=== PATIENT | male | born 1950 | race Caucasian/White ===

== ENCOUNTER → 2018-09-04 | Outpatient (CLI) | payer MEDICARE, OTHER ==
[2014-09-28 09:05] VITALS: BP 107/61
[~2018-09-04] MED LIST: 0.9 % SODIUM CHLORIDE 10 ML VIAL ONE; BUPR300T4 PO; CARV12.52 PO; CHOL500050 PO; FEBU80TA2 PO; FURO20TA3 PO; HYDR-963 PO; INSU100I11 SQ; INSU100I13 SQ; IOHEXOL 300 MG/ML 50 ML VIAL. ONE; LEVO100T5 PO; LIDOCAINE 1% PF 30 ML VIAL. ONE; LOSA50TA7 PO; MAGN400T17 PO; METO10TA PO; MOXI3DRO2 RIGHTEYE; NEPA1.7D RIGHTEYE; OMEP20CA9 PO; PRED5DRO16 RIGHTEYE; PREG75CA PO; SPIR25TA5 PO; methylPREDNISolone ACETATE 80 MG/ML VIAL. ONE
== END | disposition home or self-care (01) ==
LOC: SURG 11:21
PROVIDERS: ATTEND Anesthesiology Pain Medicine
DX: M47.26 Other spondylosis with radiculopathy, lumbar region (principal); M79.18 Myalgia, other site; E11.9 Type 2 diabetes mellitus without complications; M10.9 Gout, unspecified; E66.01 Morbid (severe) obesity due to excess calories; E03.9 Hypothyroidism, unspecified; K21.9 Gastro-esophageal reflux disease without esophagitis; J44.9 Chronic obstructive pulmonary disease, unspecified; D64.9 Anemia, unspecified; Z90.49 Acquired absence of other specified parts of digestive tract; Z98.84 Bariatric surgery status; Z98.890 Other specified postprocedural states; Z79.899 Other long term (current) drug therapy; Z79.4 Long term (current) use of insulin; Z87.891 Personal history of nicotine dependence; M19.90 Unspecified osteoarthritis, unspecified site; G47.30 Sleep apnea, unspecified; Z96.653 Presence of artificial knee joint, bilateral
CPT/HCPCS: 20552; 62323; J1040; J2001; Q9967

== ENCOUNTER 2019-06-12 17:25 | Emergency (ER) | payer OTHER ==
[~2019-06-12] VITALS: Ht 175.3 cm; Wt 134.7 kg
[~2019-06-12 17:25] MED LIST changes: -0.9 % SODIUM CHLORIDE 10 ML VIAL ONE; -CARV12.52 PO; +CARV12.547 PO; +HYDR-3136 PO; -HYDR-963 PO; -IOHEXOL 300 MG/ML 50 ML VIAL. ONE; -LIDOCAINE 1% PF 30 ML VIAL. ONE; -LOSA50TA7 PO; +LOSA50TA86 PO; +MOXI3DRO18 RIGHTEYE; -MOXI3DRO2 RIGHTEYE; +OMEP20CA10 PO; -OMEP20CA9 PO; -methylPREDNISolone ACETATE 80 MG/ML VIAL. ONE
--- NOTE | 2019-06-12 17:34 | ED.ADGEN ---
Past History Past Medical History: Anemia, Anxiety, Arthritis, CHF, Constipation, COPD, Diabetes, High Cholesterol, Hypertension, Renal Disease, Other Past Medical History Sleep Apnea, Obesity Past Surgical History: Cholecystectomy, Knee Replacement, Other Smoking: Non-smoker Alcohol Use: None Drug Use: None Adult General Chief Complaint Chief Complaint ". I ve been hurting since about Saturday or ... my Rt. flank.. "...It sometimes so severe..." HPI HPI Patient is a 68 year old male who presents with above hx and complaints of back pain - Rt. flank pain. Pain has been somewhat intermittent with at times very severe. She denies any pain it helps her exacerbate pain Patient denies any trauma. Patient denies any dysuria. Patient denies prior history of kidney stones. Patient does have a history of COPD, neuritis, hypertension, sleep apnea, diabetes, renal insufficiency, and morbid obesity. Patient has had previous cholecystectomy, knee replacement and cataract surgery.. Only follows at [facility]. Review of Systems Review of Systems Constitutional: Denies fever or chills [] Eyes: Denies change in visual acuity, redness, or eye pain [] HENT: Denies nasal congestion or sore throat [] Respiratory: Denies cough or shortness of breath [] Cardiovascular: No additional information not addressed in HPI [] GI: Denies abdominal pain, nausea, vomiting, bloody stools or diarrhea [] : Denies dysuria or hematuria [] Musculoskeletal: Complaints of right flank back pain Integument: Denies rash or skin lesions [] Neurologic: Denies headache, focal weakness or sensory changes [] Endocrine: Denies polyuria or polydipsia [] All other systems were reviewed and found to be within normal limits, except as documented in this note. Family History Family History Noncontributory Current Medications Current Medications Current Medications Medications (Trade) Dose Ordered Sig/Estuardo Start Time Stop Time Status Last Admin Dose Admin Famotidine (Pepcid Vial) 20 mg 1X ONCE 06/12/19 17:45 06/12/19 17:58 DC 06/12/19 18:19 20 MG Iohexol (Omnipaque 240 Mg/ml) 30 ml 1X ONCE 06/12/19 19:45 06/12/19 19:46 DC 06/12/19 20:18 30 ML Ketorolac Tromethamine (Toradol 30mg Vial) 30 mg 1X ONCE 06/12/19 17:45 06/12/19 17:58 DC 06/12/19 18:21 30 MG Lactated Ringer's 1,000 ml @ 1,000 mls/hr Q1H 06/12/19 18:00 06/12/19 18:59 DC 06/12/19 18:15 1,000 MLS/HR Magnesium Hydroxide (Milk Of Magnesia) 2,400 mg 1X ONCE 06/12/19 21:15 06/12/19 21:18 DC 06/12/19 21:21 2,400 MG Morphine Sulfate (Morphine 10mg Syringe) 10 mg 1X ONCE 06/12/19 21:15 06/12/19 21:16 DC 06/12/19 21:18 10 MG Ondansetron HCl (Zofran) 8 mg 1X ONCE 06/12/19 17:45 06/12/19 17:58 DC 06/12/19 18:17 8 MG Orphenadrine Citrate (Norflex) 60 mg 1X ONCE 06/12/19 21:15 06/12/19 21:16 DC 06/12/19 21:15 60 MG Allergies Allergies Allergies Coded Allergies Type Severity Reaction Last Updated Verified No Known Drug Allergies 03/01/14 No Physical Exam Physical Exam Constitutional: Moderate acute distress, non-toxic appearance. [] HENT: Normocephalic, atraumatic, bilateral external ears normal, oropharynx moist, no oral exudates, nose normal. [] Eyes: PERRLA, EOMI, conjunctiva normal, no discharge. [] Neck: Normal range of motion, no tenderness, supple, no stridor. [] Cardiovascular:Heart rate regular rhythm, no murmur [CA to left Lungs & Thorax: Bilateral breath sounds with apex with few scattered wheezes auscultation [] Abdomen: Bowel sounds normal, soft, no tenderness, no masses, no pulsatile masses. [place]. Old surgery scars. Skin: Warm, dry, no erythema, no rash. [] Back: No tenderness, right flank CVA tenderness. [] Extremities: No tenderness, no cyanosis, no clubbing, ROM intact, ankle edema. [] Knee scar Neurologic: Alert and oriented X 3, normal motor function, normal sensory function, no focal deficits noted. [] Psychologic: Affect anxious, judgement normal, mood normal. [] Current Patient Data Vital Signs Vital Signs Date Time Temp Pulse Resp B/P (MAP) Pulse Ox O2 Delivery O2 Flow Rate FiO2 06/12/19 21:23 65 20 141/75 (97) 99 Room Air Lab Results Laboratory Tests Test 06/12/19 17:44 06/12/19 17:56 Urine Collection Type Unknown Urine Color Yellow Urine Clarity Clear Urine pH 6.5 Urine Specific Pool 1.025 Urine Protein >100 mg/dl (NEG-TRACE) Urine Glucose (UA) Neg mg/dL (NEG) Urine Ketones (Stick) Neg mg/dL (NEG) Urine Blood Trace (NEG) Urine Nitrite Neg (NEG) Urine Bilirubin Neg (NEG) Urine Urobilinogen Dipstick 4 mg/dL (0.2 mg/dL) Urine Leukocyte Esterase Neg (NEG) Urine RBC 0 /HPF (0-2) Urine WBC 0 /HPF (0-4) Urine Squamous Epithelial Cells Occ /LPF Urine Bacteria 0 /HPF (0-FEW) Urine Hyaline Casts Occ /HPF Urine Opiates Screen Pos (NEG) Urine Methadone Screen Neg (NEG) Urine Barbiturates Neg (NEG) Urine Phencyclidine Screen Neg (NEG) Urine Amphetamine/Methamphetamine Neg (NEG) Urine Benzodiazepines Screen Neg (NEG) Urine Cocaine Screen Neg (NEG) Urine Cannabinoids Screen Neg (NEG) Urine Ethyl Alcohol Neg (NEG) White Blood Count 4.6 x10^3/uL (4.0-11.0) Red Blood Count 4.42 x10^6/uL (4.30-5.70) Hemoglobin 14.0 g/dL (13.0-17.5) Hematocrit 42.1 % (39.0-53.0) Mean Corpuscular Volume 95 fL (79-100) Mean Corpuscular Hemoglobin 32 pg (25-35) Mean Corpuscular Hemoglobin Concent 33 g/dL (31-37) Red Cell Distribution Width 14.1 % (11.5-14.5) Platelet Count 111 x10^3/uL (140-400) L Neutrophils (%) (Auto) 58 % (31-73) Lymphocytes (%) (Auto) 29 % (24-48) Monocytes (%) (Auto) 13 % (0-9) H Eosinophils (%) (Auto) 0 % (0-3) Basophils (%) (Auto) 0 % (0-3) Neutrophils # (Auto) 2.7 x10^3uL (1.8-7.7) Lymphocytes # (Auto) 1.3 x10^3/uL (1.0-4.8) Monocytes # (Auto) 0.6 x10^3/uL (0.0-1.1) Eosinophils # (Auto) 0.0 x10^3/uL (0.0-0.7) Basophils # (Auto) 0.0 x10^3/uL (0.0-0.2) Prothrombin Time 10.6 SEC (9.4-11.4) Prothrombin Time INR 1.0 (0.9-1.1) PTT 27 SEC (23-33) Sodium Level 140 mmol/L (136-145) Potassium Level 4.8 mmol/L (3.5-5.1) Chloride Level 107 mmol/L (98-107) Carbon Dioxide Level 26 mmol/L (21-32) Anion Gap 7 (6-14) Blood Urea Nitrogen 25 mg/dL (8-26) Creatinine 1.7 mg/dL (0.7-1.3) H Estimated GFR (Cockcroft-Gault) 40.4 Glucose Level 121 mg/dL (70-99) H Calcium Level 9.2 mg/dL (8.5-10.1) Total Bilirubin 0.6 mg/dL (0.2-1.0) Direct Bilirubin 0.3 mg/dL (0.0-0.2) H Aspartate Amino Transferase (AST) 26 U/L (15-37) Alanine Aminotransferase (ALT) 30 U/L (16-63) Alkaline Phosphatase 100 U/L (46-116) Creatine Kinase 66 U/L (39-308) Troponin I Quantitative < 0.017 ng/mL (0-0.055) Total Protein 7.0 g/dL (6.4-8.2) Albumin 3.4 g/dL (3.4-5.0) Lipase 64 U/L (73-393) L EKG EKG [] Radiology/Procedures Radiology/Procedures [][address] [address] IMAGING REPORT Signed PATIENT: SUNDEEP LIU ACCOUNT: [id number] : 1950 LOCATION: ER AGE: 68 SEX: M EXAM STATUS: REG ER ORD. PHYSICIAN: SYBIL LOCK MD REASON: Omni 240, 30ml PO. Right flank pain. Creat 1.7, unable to give IV PROCEDURE: CT ABD PEL W/ORAL CONTRST ONLY INDICATION: Right flank pain COMPARISON: None. TECHNIQUE: Axial CT images obtained through the abdomen and pelvis without contrast. Limited assessment of solid organ structures and vasculature secondary to lack of intravenous contrast.. One or more of the following individualized dose reduction techniques were utilized for this examination: 1. Automated exposure control; 2. Adjustment of the mA and/or kV according to patient size; 3. Use of iterative reconstruction technique. FINDINGS: Moderate calcific atherosclerosis. Lobulated appearance of the liver with enlarged caudate. Poor evaluation for solid organ mass given lack of contrast. No peripancreatic fluid collection. Spleen mildly prominent in size. No left-sided hydronephrosis. Nonobstructive bilateral renal stones. No right-sided hydronephrosis. There are some prominent collateral vessels identified. Urinary bladder is partially distended with mild prominence of the wall. There is folding of the cecum medially. Suspected appendix not dilated. Degenerative changes throughout the spine with multilevel central canal and neural foraminal stenosis. Moderate compression fracture of T11 vertebral body superior endplate. Retrolisthesis of L2 on 3 and L1 on 2. Inferior vena cava filter. IMPRESSION: 1. Bilateral renal stones without hydronephrosis. 2. Suspected appendix is not dilated. 3. Cirrhotic liver morphology with collateral vessels seen within the abdomen and pelvis. This can be seen with causes such as portal hypertension. 4. Moderate compression fracture T11. 5. Severe degenerative changes the spine with multilevel central canal and neural foraminal stenosis. 6. Prominence the wall of the urinary bladder. Could be from lack of distention but would correlate with symptoms in the region to ensure there is not a pathologic cause such as cystitis. Electronically signed by: Shaquille Wright MD (06/12/2019 8:50 PM) [facility] DICTATED AND SIGNED BY: SHAQUILLE WRIGHT MD DATE: 06/12/192049 CC: SYBIL LOCK MD; CEDRICK TANG ~ Course & Med Decision Making Course & Med Decision Making Pertinent Labs and Imaging studies reviewed. (See chart for details) Follow up with primary. Consider Neurosurgery consult. Take Percocet and flexeril for spasm /marked pain. Push fluids. Avoid constipation. [] Final Impression Final Impression 1. 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 Renal Stones without Hydronephrosis or Hematuria 3. Renal Insuf. Creat 1.2 4. DM = 121 5. Thrombocytopenia Dragon Disclaimer Dragon Disclaimer This electronic medical record was generated, in whole or in part, using a voice recognition dictation system. Discharge Summary Visit Information Final Diagnosis Problems Medical Problems: (1) Spinal stenosis Status: Acute Brief Hospital Course Allergies Allergies Coded Allergies Type Severity Reaction Last Updated Verified No Known Drug Allergies 03/01/14 No Vital Signs Vital Signs Date Time Temp Pulse Resp B/P (MAP) Pulse Ox O2 Delivery O2 Flow Rate FiO2 06/12/19 21:23 65 20 141/75 (97) 99 Room Air Lab Results Laboratory Tests Test 06/12/19 17:44 06/12/19 17:56 Urine Collection Type Unknown Urine Color Yellow Urine Clarity Clear Urine pH 6.5 Urine Specific Pool 1.025 Urine Protein >100 mg/dl (NEG-TRACE) Urine Glucose (UA) Neg mg/dL (NEG) Urine Ketones (Stick) Neg mg/dL (NEG) Urine Blood Trace (NEG) Urine Nitrite Neg (NEG) Urine Bilirubin Neg (NEG) Urine Urobilinogen Dipstick 4 mg/dL (0.2 mg/dL) Urine Leukocyte Esterase Neg (NEG) Urine RBC 0 /HPF (0-2) Urine WBC 0 /HPF (0-4) Urine Squamous Epithelial Cells Occ /LPF Urine Bacteria 0 /HPF (0-FEW) Urine Hyaline Casts Occ /HPF Urine Opiates Screen Pos (NEG) Urine Methadone Screen Neg (NEG) Urine Barbiturates Neg (NEG) Urine Phencyclidine Screen Neg (NEG) Urine Amphetamine/Methamphetamine Neg (NEG) Urine Benzodiazepines Screen Neg (NEG) Urine Cocaine Screen Neg (NEG) Urine Cannabinoids Screen Neg (NEG) Urine Ethyl Alcohol Neg (NEG) White Blood Count 4.6 x10^3/uL (4.0-11.0) Red Blood Count 4.42 x10^6/uL (4.30-5.70) Hemoglobin 14.0 g/dL (13.0-17.5) Hematocrit 42.1 % (39.0-53.0) Mean Corpuscular Volume 95 fL (79-100) Mean Corpuscular Hemoglobin 32 pg (25-35) Mean Corpuscular Hemoglobin Concent 33 g/dL (31-37) Red Cell Distribution Width 14.1 % (11.5-14.5) Platelet Count 111 x10^3/uL (140-400) Neutrophils (%) (Auto) 58 % (31-73) Lymphocytes (%) (Auto) 29 % (24-48) Monocytes (%) (Auto) 13 % (0-9) Eosinophils (%) (Auto) 0 % (0-3) Basophils (%) (Auto) 0 % (0-3) Neutrophils # (Auto) 2.7 x10^3uL (1.8-7.7) Lymphocytes # (Auto) 1.3 x10^3/uL (1.0-4.8) Monocytes # (Auto) 0.6 x10^3/uL (0.0-1.1) Eosinophils # (Auto) 0.0 x10^3/uL (0.0-0.7) Basophils # (Auto) 0.0 x10^3/uL (0.0-0.2) Prothrombin Time 10.6 SEC (9.4-11.4) Prothromb Time International Ratio 1.0 (0.9-1.1) Activated Partial Thromboplast Time 27 SEC (23-33) Sodium Level 140 mmol/L (136-145) Potassium Level 4.8 mmol/L (3.5-5.1) Chloride Level 107 mmol/L (98-107) Carbon Dioxide Level 26 mmol/L (21-32) Anion Gap 7 (6-14) Blood Urea Nitrogen 25 mg/dL (8-26) Creatinine 1.7 mg/dL (0.7-1.3) Estimated GFR (Cockcroft-Gault) 40.4 Glucose Level 121 mg/dL (70-99) Calcium Level 9.2 mg/dL (8.5-10.1) Total Bilirubin 0.6 mg/dL (0.2-1.0) Direct Bilirubin 0.3 mg/dL (0.0-0.2) Aspartate Amino Transf (AST/SGOT) 26 U/L (15-37) Alanine Aminotransferase (ALT/SGPT) 30 U/L (16-63) Alkaline Phosphatase 100 U/L (46-116) Creatine Kinase 66 U/L (39-308) Troponin I Quantitative < 0.017 ng/mL (0-0.055) Total Protein 7.0 g/dL (6.4-8.2) Albumin 3.4 g/dL (3.4-5.0) Lipase 64 U/L (73-393) Brief Hospital Course Mr. Liu is a 68 old male who presented with Rt Flank pain- suspect related to old compression fx, DJD , spinal foramina stenosis. Discharge Information Condition at Discharge: Stable Disposition/Orders: D/C to Home Dischare Medications Current Medications Lactated Ringer's 1,000 ml @ 1,000 mls/hr Q1H IV Last administered on 06/12/19at 18:15; Admin Dose 1,000 MLS/HR; Start 06/12/19 at 18:00; Stop 06/12/19 at 18:59; Status DC Ondansetron HCl (Zofran) 8 mg 1X ONCE IV Last administered on 06/12/19at 18:17; Admin Dose 8 MG; Start 06/12/19 at 17:45; Stop 06/12/19 at 17:58; Status DC Famotidine (Pepcid Vial) 20 mg 1X ONCE IVP Last administered on 06/12/19at 18:19; Admin Dose 20 MG; Start 06/12/19 at 17:45; Stop 06/12/19 at 17:58; Status DC Ketorolac Tromethamine (Toradol 30mg Vial) 30 mg 1X ONCE IV Last administered on 06/12/19at 18:21; Admin Dose 30 MG; Start 06/12/19 at 17:45; Stop 06/12/19 at 17:58; Status DC Iohexol (Omnipaque 240 Mg/ml) 50 ml STK-MED ONCE .ROUTE ; Start 06/12/19 at 18:59; Stop 06/12/19 at 19:00; Status DC Iohexol (Omnipaque 240 Mg/ml) 30 ml 1X ONCE PO Last administered on 06/12/19at 20:18; Admin Dose 30 ML; Start 06/12/19 at 19:45; Stop 06/12/19 at 19:46; Status DC Orphenadrine Citrate (Norflex) 60 mg 1X ONCE IV Last administered on 06/12/19at 21:15; Admin Dose 60 MG; Start 06/12/19 at 21:15; Stop 06/12/19 at 21:16; Status DC Morphine Sulfate (Morphine 10mg Syringe) 10 mg 1X ONCE SQ Last administered on 06/12/19at 21:18; Admin Dose 10 MG; Start 06/12/19 at 21:15; Stop 06/12/19 at 21:16; Status DC Magnesium Hydroxide (Milk Of Magnesia) 2,400 mg 1X ONCE PO Last administered on 06/12/19at 21:21; Admin Dose 2,400 MG; Start 06/12/19 at 21:15; Stop 06/12/19 at 21:18; Status DC Active Scripts Active Cyclobenzaprine Hcl 10 Mg Tablet 10 Mg PO TID PRN Percocet 5-325 Mg Tablet (Oxycodone Hcl/Acetaminophen) 1 Each Tablet 1 Tab PO PRN Q6HRS PRN Reported Ilevro (Nepafenac) 1.7 Ml Drops.susp 1 Drop RIGHTEYE DAILY use daily till gone Prednisolone Acetate 5 Ml Drops.susp 1 Drop RIGHTEYE TID use twice today than starting tomorrow 3 x daily till gone. Vigamox (Moxifloxacin Hcl) 3 Ml Drops 1 Drop RIGHTEYE TID use twice today than starting tomorrow 3 x daily till gone Metoclopramide Hcl 10 Mg Tablet 10 Mg PO Spironolactone 25 Mg Tablet 1 Tab PO DAILY Magox 400 (Magnesium Oxide) 400 Mg Tablet 400 Mg PO Omeprazole 20 Mg Capsule.dr 1 Cap PO DAILY Furosemide 20 Mg Tablet 1 Tab PO DAILY PRN Uloric (Febuxostat) 80 Mg Tablet 80 Mg PO DAILY Lyrica (Pregabalin) 75 Mg Capsule 75 Mg PO TID Carvedilol (Carvedilol) 12.5 Mg Tablet 12.5 Mg PO BIDWMEALS Bupropion Xl (Bupropion Hcl) 300 Mg Tab.er.24h 300 Mg PO DAILY Levothyroxine Sodium 100 Mcg Tablet 100 Mcg PO DAILY Vitamin D3 (Cholecalciferol (Vitamin D3)) 50,000 Unit Capsule 50,000 Unit PO WEEKLY [place] 10-325 Tablet (Hydrocodone Bit/Acetaminophen) 1 Each Tablet 1 Each PO PRN Q6HRS PRN Humalog (Insulin Lispro) 100 Unit/1 Ml Insuln.pen 20 Unit SQ TIDWMEALS Lantus Solostar (Insulin Glargine,Hum.rec.anlog) 100 Unit/1 Ml Insuln.pen 80 Unit SQ DAILY Losartan Potassium (Losartan Potassium) 50 Mg Tablet 50 Mg PO DAILY Dragon Disclaimer This chart was dictated in whole or in part using Voice Recognition software in a busy, high-work load, and often noisy Emergency Department environment. It may contain unintended and wholly unrecognized errors or omissions. SYBIL LOCK MD Jun 12, 2019 17:34
[2019-06-12] MEDS ORDERED: FAMOTIDINE 20 MG/2 ML VIAL IVP ONE (17:45)
[2019-06-12] MEDS ORDERED: KETOROLAC 30 MG/ML VIAL. IV ONE (17:45)
[2019-06-12] MEDS ORDERED: ONDANSETRON PF 4 MG/2 ML VIAL. IV ONE (17:45)
[2019-06-12 17:53] LABS: BILIRUBIN,URINE NEG (NEG); CLARITY,URINE CLEAR; COLOR,URINE YELLOW; GLUCOSE,URINE NEG (NEG)
[2019-06-12 17:54] LABS: BACTERIA,URINE 0 /HPF (0-FEW); HYALINE CASTS, URINE OCC /HPF; NITRITE,URINE NEG (NEG); RBC,URINE 0 /HPF (0-2); SQUAMOUS EPITHELIAL CELL,UR OCC /LPF; UROBILINOGEN,URINE 4 mg/dL (0.2 mg/dL); WBC,URINE 0 /HPF (0-4)
[2019-06-12] MEDS ORDERED: IV RINGERS SOLUTION,LACTATED 1,000 ML IV SCH (18:00)
[2019-06-12 18:01] LABS: AMPHETAMINE/METHAMPHETAMINE NEG (NEG); BARBITURATES NEG (NEG); BENZODIAZEPINES NEG (NEG); CANNABINOIDS NEG (NEG); COCAINE NEG (NEG); METHADONE NEG (NEG); OPIATES POS (NEG); PHENCYCLIDINE NEG (NEG)
[2019-06-12 18:23] LABS: BASO % 0 % (0-3); EOS % 0 % (0-3); HEMATOCRIT 42.1 % (39.0-53.0); LYMPH # 1.3 x10^3/uL (1.0-4.8); LYMPH % 29 % (24-48); MEAN CORPUSCULAR HEMOGLOBIN 32 pg (25-35); MEAN CORPUSCULAR HGB CONC 33 g/dL (31-37); MEAN CORPUSCULAR VOLUME 95 fL (79-100); MONO # 0.6 x10^3/uL (0.0-1.1); MONO % 13 % (0-9); NEUT # 2.7 x10^3uL (1.8-7.7); NEUT % 58 % (31-73); PLATELET COUNT 111 x10^3/uL (140-400); RED BLOOD COUNT 4.42 x10^6/uL (4.30-5.70); RED CELL DISTRIBUTION WIDTH 14.1 % (11.5-14.5); WHITE BLOOD COUNT 4.6 x10^3/uL (4.0-11.0)
[2019-06-12 18:38] LABS: ALBUMIN 3.4 g/dL (3.4-5.0); CALCIUM 9.2 mg/dL (8.5-10.1); CREATININE 1.7 mg/dL (0.7-1.3); DIRECT BILIRUBIN 0.3 mg/dL (0.0-0.2); GFR 40.4; POTASSIUM 4.8 mmol/L (3.5-5.1); TOTAL BILIRUBIN 0.6 mg/dL (0.2-1.0)
[2019-06-12] MEDS ORDERED: IOHEXOL 240 MG/ML 50ML VIAL. ONE (18:59)
[2019-06-12] MEDS ORDERED: IOHEXOL 240 MG/ML 50ML VIAL. PO ONE (19:45)
--- NOTE | 2019-06-12 20:52 | RAD ---
INDICATION: Right flank pain COMPARISON: None. TECHNIQUE: Axial CT images obtained through the abdomen and pelvis without contrast. Limited assessment of solid organ structures and vasculature secondary to lack of intravenous contrast.. One or more of the following individualized dose reduction techniques were utilized for this examination: 1. Automated exposure control; 2. Adjustment of the mA and/or kV according to patient size; 3. Use of iterative reconstruction technique. FINDINGS: Moderate calcific atherosclerosis. Lobulated appearance of the liver with enlarged caudate. Poor evaluation for solid organ mass given lack of contrast. No peripancreatic fluid collection. Spleen mildly prominent in size. No left-sided hydronephrosis. Nonobstructive bilateral renal stones. No right-sided hydronephrosis. There are some prominent collateral vessels identified. Urinary bladder is partially distended with mild prominence of the wall. There is folding of the cecum medially. Suspected appendix not dilated. Degenerative changes throughout the spine with multilevel central canal and neural foraminal stenosis. Moderate compression fracture of T11 vertebral body superior endplate. Retrolisthesis of L2 on 3 and L1 on 2. Inferior vena cava filter. IMPRESSION: 1. Bilateral renal stones without hydronephrosis. 2. Suspected appendix is not dilated. 3. Cirrhotic liver morphology with collateral vessels seen within the abdomen and pelvis. This can be seen with causes such as portal hypertension. 4. Moderate compression fracture T11. 5. Severe degenerative changes the spine with multilevel central canal and neural foraminal stenosis. 6. Prominence the wall of the urinary bladder. Could be from lack of distention but would correlate with symptoms in the region to ensure there is not a pathologic cause such as cystitis. Electronically signed by: Victorino Wright MD (06/12/2019 8:50 PM) [facility]
[2019-06-12] MEDS ORDERED: CYCL-331 PO (21:08)
[2019-06-12] MEDS ORDERED: OXYC1TAB15 PO (21:08)
[2019-06-12] MEDS ORDERED: ORPHENADRINE CITRATE 60 MG/2 ML VIAL. IV ONE (21:15)
[2019-06-12] MEDS ORDERED: MAGNESIUM HYDROXIDE 2,400 MG/30 ML ORAL.SUSP. PO ONE (21:15)
[2019-06-12] MEDS ORDERED: MORPHINE SULFATE 10 MG/ML SYRINGE. SQ ONE (21:15)
[2019-06-12 21:23] VITALS: BP 141/75
--- NOTE | 2019-06-13 07:55 | RAD ---
Three-view acute abdominal series. HISTORY: Right flank pain back pain 3 views were taken for an acute abdominal series. Lungs are clear on the PA chest. Heart is normal in size. There is no pleural effusion. There is no free air on the upright view the abdomen. Patient has a vena cava filter. One strut of the vena cava filter extends through the vein but is unchanged compared to the CT from 2013. There is degenerative change and scoliosis in the lumbar spine. There is disc space narrowing in the lumbar spine. Patient's had a cholecystectomy. There is a single dilated bowel loop on the right side of the abdomen, the loop is consistent with the top of the sigmoid colon noted on the CT without obstruction. There is not other evidence of a bowel obstruction. IMPRESSION: 1. Mildly dilated cyst loop of sigmoid colon. 2. No acute infiltrates. Electronically signed by: Jarrett Parks MD (06/13/2019 7:52 AM) [facility]
== END 2019-06-12 21:30 | disposition home or self-care (01) ==
LOC: ER 17:25
DX: S22.080A Wedge compression fracture of T11-T12 vertebra, initial encounter for closed fracture (principal); N20.0 Calculus of kidney; M47.894 Other spondylosis, thoracic region; M48.04 Spinal stenosis, thoracic region; N28.9 Disorder of kidney and ureter, unspecified; D69.6 Thrombocytopenia, unspecified; E11.9 Type 2 diabetes mellitus without complications; J44.9 Chronic obstructive pulmonary disease, unspecified; I11.0 Hypertensive heart disease with heart failure; I50.9 Heart failure, unspecified; M19.90 Unspecified osteoarthritis, unspecified site; G47.30 Sleep apnea, unspecified; E66.01 Morbid (severe) obesity due to excess calories; Z68.41 Body mass index [BMI] 40.0-44.9, adult; Z90.49 Acquired absence of other specified parts of digestive tract; Z96.659 Presence of unspecified artificial knee joint; X58.XXXA Exposure to other specified factors, initial encounter; Y93.89 Activity, other specified; Y92.89 Other specified places as the place of occurrence of the external cause; Y99.8 Other external cause status
CPT/HCPCS: 36415; 74022; 74176; 80048; 80076; 80307; 81001; 82550; 83690; 84484; 85025; 85610; 85730; 96372; 96374; 96375; 99285; J1885; J2270; J2360; J2405; J3490; J7120; Q9966

== ENCOUNTER 2020-03-08 15:36 | Emergency (ER) | payer OTHER, MEDICAID ==
[~2020-03-08] VITALS: Ht 177.8 cm; Wt 145.5 kg
[~2020-03-08 15:36] MED LIST changes: -BUPR300T4 PO; +BUPR300T92 PO; +CYCL-331 PO; -OMEP20CA10 PO; +OMEP20CA16 PO; +OXYC1TAB15 PO
[2020-03-08 16:34] LABS: BASO % 0 % (0-3); EOS % 0 % (0-3); HEMOGLOBIN 12.2 g/dL (13.0-17.5); LYMPH # 0.7 x10^3/uL (1.0-4.8); LYMPH % 21 % (24-48); MEAN CORPUSCULAR HEMOGLOBIN 32 pg (25-35); MEAN CORPUSCULAR HGB CONC 33 g/dL (31-37); MEAN CORPUSCULAR VOLUME 97 fL (79-100); MONO # 0.4 x10^3/uL (0.0-1.1); MONO % 10 % (0-9); NEUT # 2.4 x10^3uL (1.8-7.7); NEUT % 69 % (31-73); PLATELET COUNT 120 x10^3/uL (140-400); RED CELL DISTRIBUTION WIDTH 14.8 % (11.5-14.5); WHITE BLOOD COUNT 3.5 x10^3/uL (4.0-11.0)
[2020-03-08 16:39] LABS: CALCIUM 8.7 mg/dL (8.5-10.1); CREATININE 1.8 mg/dL (0.7-1.3); GFR 37.7
[2020-03-08 16:44] LABS: ALBUMIN 2.8 g/dL (3.4-5.0); ALBUMIN/GLOBULIN RATIO 0.7 (1.0-1.7); TOTAL BILIRUBIN 0.4 mg/dL (0.2-1.0); TOTAL PROTEIN 6.7 g/dL (6.4-8.2)
[2020-03-08 16:46] LABS: POTASSIUM 5.3 mmol/L (3.5-5.1)
--- NOTE | 2020-03-08 16:52 | PHYS DOC ---
Past History Past Medical History: Diabetes, GERD, Hypertension, Kidney Infection Past Surgical History: No Surgical History Smoking: Non-smoker Alcohol Use: None Drug Use: None General Adult EDM: Chief Complaint: FLANK PAIN HPI: HPI: Patient is a 69 year old male with history of hypertension, diabetes mellitus, cirrhosis, renal insufficiency, morbid obesity, chronic back pain on hydrocodone who presents with complaining of flank pain. Patient complaining of constant right lower back and flank pain for the last 3 weeks as a throbbing pain that getting worse with movement. Patient denies radiation of pain, fever, abdominal pain, nausea and vomiting, diarrhea, fall or injury. Patient states for the last few days he is not able to walk with cane and wheelchair and has to use his electrical scooter all the time. Patient states he has had chronic low back pain but this time his pain is in right flank. Patient states he does not have dysuria or hematuria but complaining of urinary frequency. Patient states he had blood sugar of more than 200 today. Review of Systems: Review of Systems: Constitutional: Denies fever or chills Eyes: Denies change in visual acuity HENT: Denies nasal congestion or sore throat Respiratory: Denies cough or shortness of breath Cardiovascular: Denies chest pain or edema GI: Denies abdominal pain, nausea, vomiting, bloody stools or diarrhea : Denies dysuria Musculoskeletal: Reports back pain , denies joint pain Integument: Denies rash, report skin lesion Neurologic: Denies headache, focal weakness or sensory changes Endocrine: Denies polyuria or polydipsia Lymphatic: Denies swollen glands Psychiatric: Denies depression or anxiety Heart Score: Risk Factors: Risk Factors: DM, Current or recent (<one month) smoker, HTN, HLP, family history of CAD, obesity. Risk Scores: Score 0 - 3: 2.5% MACE over next 6 weeks - Discharge Home Score 4 - 6: 20.3% MACE over next 6 weeks - Admit for Clinical Observation Score 7 - 10: 72.7% MACE over next 6 weeks - Early Invasive Strategies Allergies: Allergies: Allergies Coded Allergies Type Severity Reaction Last Updated Verified No Known Drug Allergies 03/01/14 No Physical Exam: PE: Constitutional: Well developed, well nourished, mild distress, non-toxic appearance, morbidly obese. [] HENT: Normocephalic, atraumatic. Eyes: PERRLA, EOMI, conjunctiva normal, no discharge. [] Neck: Normal range of motion, no tenderness, supple, no stridor. [] Cardiovascular:Heart rate regular rhythm, no murmur [] Lungs & Thorax: Bilateral breath sounds clear to auscultation [] Abdomen: Bowel sounds normal, soft, no tenderness, no masses, no pulsatile masses. [] Skin: Warm, dry, no erythema, no rash. [] Back: No midline tenderness, painful range of motion, no CVA tenderness. [] Extremities: No tenderness, no cyanosis, no clubbing, ROM intact, no edema. [] Neurologic: Alert and oriented X 3, no focal deficits noted. [] Psychologic: Affect normal, judgement normal, mood normal. [] Current Patient Data: Labs: Laboratory Tests Test 03/08/20 16:14 White Blood Count 3.5 x10^3/uL (4.0-11.0) L Red Blood Count 3.80 x10^6/uL (4.30-5.70) L Hemoglobin 12.2 g/dL (13.0-17.5) L Hematocrit 37.0 % (39.0-53.0) L Mean Corpuscular Volume 97 fL (79-100) Mean Corpuscular Hemoglobin 32 pg (25-35) Mean Corpuscular Hemoglobin Concent 33 g/dL (31-37) Red Cell Distribution Width 14.8 % (11.5-14.5) H Platelet Count 120 x10^3/uL (140-400) L Neutrophils (%) (Auto) 69 % (31-73) Lymphocytes (%) (Auto) 21 % (24-48) L Monocytes (%) (Auto) 10 % (0-9) H Eosinophils (%) (Auto) 0 % (0-3) Basophils (%) (Auto) 0 % (0-3) Neutrophils # (Auto) 2.4 x10^3uL (1.8-7.7) Lymphocytes # (Auto) 0.7 x10^3/uL (1.0-4.8) L Monocytes # (Auto) 0.4 x10^3/uL (0.0-1.1) Eosinophils # (Auto) 0.0 x10^3/uL (0.0-0.7) Basophils # (Auto) 0.0 x10^3/uL (0.0-0.2) Sodium Level 139 mmol/L (136-145) Potassium Level 5.3 mmol/L (3.5-5.1) H Chloride Level 107 mmol/L (98-107) Carbon Dioxide Level 25 mmol/L (21-32) Anion Gap 7 (6-14) Blood Urea Nitrogen 32 mg/dL (8-26) H Creatinine 1.8 mg/dL (0.7-1.3) H Estimated GFR (Cockcroft-Gault) 37.7 BUN/Creatinine Ratio 18 (6-20) Glucose Level 256 mg/dL (70-99) H Calcium Level 8.7 mg/dL (8.5-10.1) Total Bilirubin 0.4 mg/dL (0.2-1.0) Aspartate Amino Transferase (AST) 28 U/L (15-37) Alanine Aminotransferase (ALT) 38 U/L (16-63) Alkaline Phosphatase 119 U/L (46-116) H Total Protein 6.7 g/dL (6.4-8.2) Albumin 2.8 g/dL (3.4-5.0) L Albumin/Globulin Ratio 0.7 (1.0-1.7) L Lipase 68 U/L (73-393) L Vital Signs: Vital Signs Date Time Temp Pulse Resp B/P (MAP) Pulse Ox O2 Delivery O2 Flow Rate FiO2 03/08/20 15:52 98.4 74 18 147/81 (103) 100 Room Air EKG: EKG: [] Radiology/Procedures: Radiology/Procedures: [address] [address] IMAGING REPORT Signed PATIENT: SUNDEEP HOLMAN ACCOUNT: [id number] : 1950 LOCATION: ER AGE: 69 SEX: M EXAM STATUS: REG ER ORD. PHYSICIAN: ANANT BERGER MD REASON: RIGHT FLANK PAIN PROCEDURE: CT ABDOMEN PELVIS WO CONTRAST PQRS Compliance Statement: One or more of the following individualized dose reduction techniques were utilized for this examination: 1. Automated exposure control 2. Adjustment of the mA and/or kV according to patient size 3. Use of iterative reconstruction technique CT abdomen/pelvis without contrast 03/08/2020 4:07 PM INDICATION: Right flank pain COMPARISON: CT abdomen/pelvis 06/12/2019 TECHNIQUE: Multiple axial CT images of the abdomen and pelvis were obtained without intravenous contrast. Coronal and sagittal reformats are provided. FINDINGS: Lung bases are clear. Heart size is within normal limits. There is nodular contour of the hepatic parenchyma which may be associated with underlying cirrhosis. Evaluation of the solid abdominal viscera is limited by lack of intravenous contrast. No splenomegaly. Adrenal glands are normal in appearance. Mild to moderate fatty atrophy of the pancreas is noted. Gallbladder surgically absent. Gastrohepatic lymph node measures 8 mm by short axis table. Portacaval lymph node measures 12 mm by short axis, able. Abdominal aorta is normal in course and caliber. A splenorenal shunt is identified tortuous vessels the left periaortic distribution. No pathologically enlarged lymph nodes are identified within the pelvis. There is no free fluid or free intraperitoneal air. IVC filter is present. Linear metallic density projects outside of the inferior vena cava superiorly, stable. Postoperative changes are identified from gastric bypass surgery. No bowel obstruction or inflammation. Appendix is not visualized. No pericecal inflammatory changes are identified. There is a 3 mm nonobstructing calculus in inferior pole the left kidney. 1 mm nonobstructing calculus is identified in the superior pole the right kidney. Additional 1 mm nonobstructing calculus is identified in inferior pole the right kidney. There is no hydronephrosis. No suspicious renal mass. Urinary bladder is within normal limits given degree of distention. No suspicious pelvic mass is identified. No suspicious osseous abnormality. IMPRESSION: 1. Nodular contour of the hepatic parenchyma suggestive of underlying cirrhosis. Suspect a splenorenal shunt, stable from prior examination. Extent 2. Nonobstructing bilateral renal calculi measuring up to 3 mm. No hydronephrosis. 3. IVC filter is in similar position. 4. Post surgical changes from Moiz-en-Y gastric bypass surgery without bowel obstruction or inflammation. Electronically signed by: Tahmina Arredondo MD (03/08/2020 5:01 PM) [facility] DICTATED AND SIGNED BY: TAHMINA ARREDONDO MD DATE: 03/08/20 6334 CC: ANANT BERGER MD; YOAKAM,CEDRICK D ~ Course & Med Decision Making: Course & Med Decision Making Pertinent Labs and Imaging studies reviewed. (See chart for details) Evaluation of patient in ER showed 69-year-old male patient with multiple medical problems presented with his electrical scooter with complaining of low back pain for 2 or 3 weeks as a constant pain. Patient had morbid obesity with no focal neuro deficit. Patient currently taking hydrocodone. Patient did not have acute finding in CT of abdomen pelvis. Labs showed chronic renal insufficiency mild hyperkalemia 5.3 and treated with Kayexalate. Patient did not have a ride and did not get pain medication in ER. Patient was advised to follow-up with diabetic diet and his primary care physician and continue home medication. Prescription for Flexeril was given. I've spoken with the patient and/or caregivers. I've explained the patient's condition, diagnosis and treatment plan based on information available to me at this time. I've answered the patient's and/or caregivers questions and addressed any concerns. The patient and/or caregivers have a good understanding the patient's diagnosis, condition and treatment plan as can be expected at this point. Vital signs have been stabilized. The patient's condition is stable for discharge from the emergency department. The patient will pursue further outpatient evaluation with her primary care provider or other designated consulting physician as outlined in the discharge instructions. Patient and/or caregivers are agreeable to this plan of care and follow-up instructions have been explained in detail. The patient and/or caregivers have received these instructions in written format and expressed understanding of these discharge instructions. The patient and her caregivers are aware that if any significant change in condition or worsening of symptoms should prompt him to immediately return to this of the closest emergency department. If an emergent department is not readily available I would encourage him to call 911. Toby Disclaimer: Toby Disclaimer: This electronic medical record was generated, in whole or in part, using a voice recognition dictation system. Departure Departure: Impression: Primary Impression: Exacerbation of chronic back pain Additional Impressions: Renal insufficiency Hyperkalemia Morbid obesity Uncontrolled diabetes mellitus Qualified Codes: E11.65 - Type 2 diabetes mellitus with hyperglycemia Nephrolithiasis History of cirrhosis Hypoalbuminemia Disposition: HOME, SELF-CARE (At 1726) Condition: STABLE Referrals: CEDRICK TANG (PCP) Patient Instructions: Back Pain, Adult, Hyperkalemia, Kidney Failure Additional Instructions: Apply ice on your back Continue home medication including Lortab Follow-up with your primary care physician in 3-5 days for chronic back pain exacerbation and diabetic lesions of extremities Return to ER if not getting better Thank you for visiting [facility]. We appreciate you trusting us with your care. If any additional problems come up don't hesitate to return to visit us. Please follow up with your primary care provider so they can plan additional care if needed and know about the problem that you had. If symptoms worsen come back to the Emergency Department. Any concerning symptoms that start such as chest pain, shortness of air, weakness or numbness on one side of the body, running high fevers or any other concerning symptoms return to the ER. Scripts Cyclobenzaprine Hcl (CYCLOBENZAPRINE HCL) 10 Mg Tablet 1 TAB PO TID for pain, #21 TAB Prov: ANANT BERGER MD 03/08/20 ANANT BERGER MD Mar 08, 2020 16:52
--- NOTE | 2020-03-08 17:04 | RAD ---
PQRS Compliance Statement: One or more of the following individualized dose reduction techniques were utilized for this examination: 1. Automated exposure control 2. Adjustment of the mA and/or kV according to patient size 3. Use of iterative reconstruction technique CT abdomen/pelvis without contrast 03/08/2020 4:07 PM INDICATION: Right flank pain COMPARISON: CT abdomen/pelvis 06/12/2019 TECHNIQUE: Multiple axial CT images of the abdomen and pelvis were obtained without intravenous contrast. Coronal and sagittal reformats are provided. FINDINGS: Lung bases are clear. Heart size is within normal limits. There is nodular contour of the hepatic parenchyma which may be associated with underlying cirrhosis. Evaluation of the solid abdominal viscera is limited by lack of intravenous contrast. No splenomegaly. Adrenal glands are normal in appearance. Mild to moderate fatty atrophy of the pancreas is noted. Gallbladder surgically absent. Gastrohepatic lymph node measures 8 mm by short axis table. Portacaval lymph node measures 12 mm by short axis, able. Abdominal aorta is normal in course and caliber. A splenorenal shunt is identified tortuous vessels the left periaortic distribution. No pathologically enlarged lymph nodes are identified within the pelvis. There is no free fluid or free intraperitoneal air. IVC filter is present. Linear metallic density projects outside of the inferior vena cava superiorly, stable. Postoperative changes are identified from gastric bypass surgery. No bowel obstruction or inflammation. Appendix is not visualized. No pericecal inflammatory changes are identified. There is a 3 mm nonobstructing calculus in inferior pole the left kidney. 1 mm nonobstructing calculus is identified in the superior pole the right kidney. Additional 1 mm nonobstructing calculus is identified in inferior pole the right kidney. There is no hydronephrosis. No suspicious renal mass. Urinary bladder is within normal limits given degree of distention. No suspicious pelvic mass is identified. No suspicious osseous abnormality. IMPRESSION: 1. Nodular contour of the hepatic parenchyma suggestive of underlying cirrhosis. Suspect a splenorenal shunt, stable from prior examination. Extent 2. Nonobstructing bilateral renal calculi measuring up to 3 mm. No hydronephrosis. 3. IVC filter is in similar position. 4. Post surgical changes from Moiz-en-Y gastric bypass surgery without bowel obstruction or inflammation. Electronically signed by: Kaley King MD (03/08/2020 5:01 PM) [facility]
[2020-03-08 17:05] LABS: BILIRUBIN,URINE NEG (NEG); CLARITY,URINE CLEAR; COLOR,URINE YELLOW; GLUCOSE,URINE 250 mg/dL (NEG)
[2020-03-08 17:07] LABS: NITRITE,URINE NEG (NEG)
[2020-03-08 17:15] LABS: BACTERIA,URINE FEW /HPF (0-FEW)
[2020-03-08 17:17] LABS: SQUAMOUS EPITHELIAL CELL,UR FEW /LPF
[2020-03-08] MEDS ORDERED: CYCL-331 PO (17:29)
[2020-03-08] MEDS ORDERED: SODIUM POLYSTYRENE SULFONATE 15 GM/60 ML ORAL.SUSP. PO ONE (17:30)
[2020-03-08 17:45] VITALS: BP 143/65
== END 2020-03-08 17:46 | disposition home or self-care (01) ==
LOC: ER 15:36
DX: G89.29 Other chronic pain (principal); N28.9 Disorder of kidney and ureter, unspecified; E87.5 Hyperkalemia; E11.65 Type 2 diabetes mellitus with hyperglycemia; N20.0 Calculus of kidney; E88.09 Other disorders of plasma-protein metabolism, not elsewhere classified; K74.60 Unspecified cirrhosis of liver; E66.01 Morbid (severe) obesity due to excess calories; Z68.42 Body mass index [BMI] 45.0-49.9, adult
CPT/HCPCS: 36415; 74176; 80053; 81001; 83690; 85025; 99284

== ENCOUNTER → 2020-03-30 | Outpatient (CLI) | payer OTHER, MEDICAID ==
[2020-03-08 17:45] VITALS: BP 143/65
--- NOTE | 2020-03-30 14:54 | RAD ---
AP pelvis to include a lateral radiograph of the right hip 03/30/2020 CLINICAL DATA: Right hip pain. An AP digital radiograph of the pelvis to include both hips was obtained. A frog-leg lateral digital radiograph of the right hip was obtained. No fracture or dislocation of the right hip is seen. No pelvic bone fracture is noted. The left hip is intact. Mild degenerative changes are seen involving both hips. Moderate degenerative changes are seen involving the mid and lower lumbar spine. IMPRESSION: No acute osseous abnormality is seen. Electronically signed by: Art Valenzuela MD (03/30/2020 2:51 PM) [id number]
== END | disposition home or self-care (01) ==
LOC: RAD 14:22
PROVIDERS: ATTEND Physical Medicine & Rehabilitation Pain Medicine
DX: M16.0 Bilateral primary osteoarthritis of hip (principal); M47.816 Spondylosis without myelopathy or radiculopathy, lumbar region
CPT/HCPCS: 73501

== ENCOUNTER → 2020-03-30 | Outpatient (CLI) | payer OTHER, MEDICAID ==
[2020-03-08 17:45] VITALS: BP 143/65
[2020-03-30 15:36] LABS: BASO % 0 % (0-3); EOS % 0 % (0-3); HEMATOCRIT 34.4 % (39.0-53.0); HEMOGLOBIN 11.3 g/dL (13.0-17.5); LYMPH # 0.8 x10^3/uL (1.0-4.8); LYMPH % 15 % (24-48); MEAN CORPUSCULAR HEMOGLOBIN 32 pg (25-35); MEAN CORPUSCULAR HGB CONC 33 g/dL (31-37); MEAN CORPUSCULAR VOLUME 98 fL (79-100); MONO # 0.4 x10^3/uL (0.0-1.1); MONO % 8 % (0-9); NEUT # 4.4 x10^3uL (1.8-7.7); NEUT % 77 % (31-73); PLATELET COUNT 87 x10^3/uL (140-400); RED BLOOD COUNT 3.51 x10^6/uL (4.30-5.70); RED CELL DISTRIBUTION WIDTH 14.2 % (11.5-14.5); WHITE BLOOD COUNT 5.7 x10^3/uL (4.0-11.0)
[2020-03-30 15:45] LABS: ALBUMIN 2.8 g/dL (3.4-5.0); ALBUMIN/GLOBULIN RATIO 0.7 (1.0-1.7); CALCIUM 8.8 mg/dL (8.5-10.1); GFR 33.4; POTASSIUM 5.2 mmol/L (3.5-5.1); TOTAL BILIRUBIN 0.5 mg/dL (0.2-1.0)
[2020-03-30 16:03] LABS: BILIRUBIN,URINE NEG (NEG); CLARITY,URINE CLEAR; COLOR,URINE AMBER; GLUCOSE,URINE 250 mg/dL (NEG)
[2020-03-30 16:04] LABS: BACTERIA,URINE 0 /HPF (0-FEW); HYALINE CASTS, URINE OCC /HPF; NITRITE,URINE NEG (NEG); SQUAMOUS EPITHELIAL CELL,UR OCC /LPF
[2020-03-31 01:07] LABS: HEMOGLOBIN A1C 6.2 % (4.8-5.6)
== END | disposition home or self-care (01) ==
LOC: LAB 14:47
PROVIDERS: ATTEND Family Medicine
DX: R41.0 Disorientation, unspecified (principal)
CPT/HCPCS: 36415; 80053; 81001; 83036; 84443; 85025; 87086

== ENCOUNTER → 2020-07-27 | Outpatient (CLI) | payer OTHER, MEDICAID ==
[2020-07-27 12:21] LABS: HEMATOCRIT 36.8 % (39.0-53.0); HEMOGLOBIN 12.2 g/dL (13.0-17.5)
[2020-07-27 13:08] LABS: ALBUMIN 2.8 g/dL (3.4-5.0); CALCIUM 8.4 mg/dL (8.5-10.1); CREATININE 2.2 mg/dL (0.7-1.3); GFR 29.8; PHOSPHORUS 2.6 mg/dL (2.6-4.7); POTASSIUM 5.5 mmol/L (3.5-5.1)
[2020-07-27 20:19] LABS: CREATININE,RANDOM URINE 171.3 mg/dL (Not Establ.)
[2020-07-27 21:06] LABS: CALCIUM PTH 8.1 mg/dL (8.6-10.2); CREATININE PTH 1.92 mg/dL (0.76-1.27); PTH INTACT 116 pg/mL (15-65)
[2020-07-27 22:07] LABS: MICROALB RD UR 2376.9 ug/mL (Not Estab.)
== END | disposition home or self-care (01) ==
LOC: LAB 10:30
PROVIDERS: ATTEND Nurse Practitioner Adult Health
DX: I12.9 Hypertensive chronic kidney disease with stage 1 through stage 4 chronic kidney disease, or unspecified chronic kidney disease (principal); N17.9 Acute kidney failure, unspecified; E11.21 Type 2 diabetes mellitus with diabetic nephropathy; E11.9 Type 2 diabetes mellitus without complications; N18.3 Chronic kidney disease, stage 3 (moderate); R80.9 Proteinuria, unspecified; N20.0 Calculus of kidney; E78.5 Hyperlipidemia, unspecified; E66.01 Morbid (severe) obesity due to excess calories; Z79.4 Long term (current) use of insulin; Z68.42 Body mass index [BMI] 45.0-49.9, adult
CPT/HCPCS: 36415; 80069; 82043; 82570; 83970; 84156; 85014; 85018

== ENCOUNTER → 2020-07-27 | Outpatient (CLI) | payer OTHER, MEDICAID ==
[2020-07-27 11:41] LABS: BACTERIA,URINE 0 /HPF (0-FEW); BILIRUBIN,URINE NEG (NEG); CLARITY,URINE CLEAR; COLOR,URINE YELLOW; GLUCOSE,URINE 250 mg/dL (NEG); NITRITE,URINE NEG (NEG)
[2020-07-27 11:42] LABS: HYALINE CASTS, URINE OCC /HPF; SQUAMOUS EPITHELIAL CELL,UR OCC /LPF
[2020-07-27 12:21] LABS: BASO % 0 % (0-3); EOS % 0 % (0-3); HEMOGLOBIN 12.3 g/dL (13.0-17.5); LYMPH # 0.4 x10^3/uL (1.0-4.8); LYMPH % 9 % (24-48); MEAN CORPUSCULAR HEMOGLOBIN 32 pg (25-35); MEAN CORPUSCULAR HGB CONC 33 g/dL (31-37); MEAN CORPUSCULAR VOLUME 96 fL (79-100); MONO # 0.1 x10^3/uL (0.0-1.1); MONO % 2 % (0-9); NEUT # 3.6 x10^3uL (1.8-7.7); NEUT % 89 % (31-73); PLATELET COUNT 83 x10^3/uL (140-400); RED BLOOD COUNT 3.86 x10^6/uL (4.30-5.70); RED CELL DISTRIBUTION WIDTH 15.1 % (11.5-14.5)
== END | disposition home or self-care (01) ==
LOC: LAB 10:25
PROVIDERS: ATTEND Family Medicine
DX: R41.0 Disorientation, unspecified (principal)
CPT/HCPCS: 36415; 81001; 85025; 87086

== ENCOUNTER 2020-08-23 09:11 | Inpatient (IN) | payer OTHER, MEDICAID ==
[~2020-08-23] VITALS: Ht 174 cm; Wt 137.4 kg
--- NOTE | 2020-08-23 09:48 | PHYS DOC ---
Past History Past Medical History: Diabetes, GERD, Hypertension, Kidney Infection, Other Additional Past Medical Histor: "RARE SKIN DISEASE" Past Surgical History: No Surgical History Additional Past Surgical Histo: GASTRIC BYPASS; BILAT KNEE REPLACEMENT Smoking: Non-smoker Alcohol Use: None Drug Use: None General Adult EDM: Chief Complaint: LOWER EXT PAIN HPI: HPI: 70-year-old male past medical history of diabetes, hypertension, CKD, cirrhosis, obesity, GERD, and "very rare skin disorder," presents to the ED with complaints of painful lower extremities with increased swelling, worsening for the past week, daughter reports patient has gained 2 pounds daily for the past week. Patient reports he has some cognitive impairment from a prior head injury. Believes he has chf. 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 Has been applying steroid creams to a wound on his anterior left solis. Pt reports "scars are from the healed wounds." Review of Systems: Review of Systems: Constitutional: Denies fever or chills Eyes: Denies change in visual acuity HENT: Denies nasal congestion or sore throat Respiratory: Denies cough or shortness of breath Cardiovascular: Denies chest pain or syncope GI: Denies abdominal pain, nausea, vomiting, bloody stools or diarrhea : Denies dysuria Musculoskeletal: Denies joint pain or swelling Integument: Denies rash Neurologic: Denies headache, focal weakness or sensory changes Endocrine: Denies polyuria or polydipsia Lymphatic: Denies swollen glands Psychiatric: Denies depression or anxiety Heart Score: Risk Factors: Risk Factors: DM, Current or recent (<one month) smoker, HTN, HLP, family history of CAD, obesity. Risk Scores: Score 0 - 3: 2.5% MACE over next 6 weeks - Discharge Home Score 4 - 6: 20.3% MACE over next 6 weeks - Admit for Clinical Observation Score 7 - 10: 72.7% MACE over next 6 weeks - Early Invasive Strategies Allergies: Allergies: Allergies Coded Allergies Type Severity Reaction Last Updated Verified No Known Drug Allergies 08/23/20 No Physical Exam: PE: Constitutional: Well developed, well nourished, low back pain with movement, HENT: Normocephalic, atraumatic, bilateral external ears normal, Eyes: EOMI, conjunctiva normal, no discharge. [] Neck: Normal range of motion, no tenderness, supple, no stridor. [] Cardiovascular: Heart rate regular rhythm, no murmur [] Lungs & Thorax: Bilateral breath sounds clear to auscultation [] Abdomen: Bowel sounds normal, obese, soft, no tenderness, no masses, no pulsatile masses. [] Skin: Warm, dry, no erythema, no rash, Back: right lumbar lateral back pain/ttp, no CVA tenderness. [] Extremities: No tenderness, no cyanosis, no clubbing, ROM intact, +3/4 rojas le pitting edema, 6x6cm red based ulcer (s/p ruptured bulla) over left anterior solis, scabs/scars over right knee and LEs, Neurologic: Alert to self/history/home/situation but poor historian, normal motor function, normal sensory function, no focal deficits noted. [] Psychologic: Affect normal, mood normal. [] : Normal external rectal exam, no active bleeding, no external hemorrhoids, no decubitus ulcers, no crepitus over back or rash Current Patient Data: Vital Signs: Vital Signs Date Time Temp Pulse Resp B/P (MAP) Pulse Ox O2 Delivery O2 Flow Rate FiO2 08/23/20 09:24 97.9 66 20 161/71 (101) 97 Room Air EKG: EKG: Sinus rhythm at 61 bpm, left axis deviation, T wave inversion aVL, LAFB, no ST elevations or ST depressions, normal intervals (although qrs is 118) Radiology/Procedures: Radiology/Procedures: IMAGING REPORT Signed PATIENT: SUNDEEP HOLMAN ACCOUNT: [id number] : 1950 LOCATION: ER AGE: 70 SEX: M EXAM STATUS: REG ER ORD. PHYSICIAN: CHEPE OSBORNE DO REASON: EDEMA, FLUID OVERLOAD PROCEDURE: CHEST AP ONLY CHEST AP ONLY Clinical indications: EDEMA, FLUID OVERLOAD Comparison: June 12, 2019. Findings: No acute lung infiltrate or pleural effusion or pulmonary edema or lung mass or pneumothorax is seen. Cephalization of pulmonary flow is seen. The heart size is enlarged. Mediastinum is unremarkable. Impression: Mild cardiomegaly. Cephalization of pulmonary flow which may be an early indicator of fluid overload or early CHF. No pulmonary edema or pleural effusion is seen otherwise. Electronically signed by: Sridhar Concepcion MD (08/23/2020 10:26 AM) [id number] DICTATED AND SIGNED BY: SRIDHAR CONCEPCION MD DATE: 08/23/20 1026 CC: CHEPE OSBORNE DO; CEDRICK TANG ~ IMAGING REPORT Signed PATIENT: SUNDEEP HOLMAN ACCOUNT: [id number] : 1950 LOCATION: ER AGE: 70 SEX: M EXAM STATUS: REG ER ORD. PHYSICIAN: CHEPE OSBORNE DO REASON: bilateral LE swelling PROCEDURE: VENOUS LOWER EXT BILATERAL Exam: VENOUS LOWER EXT BILATERAL Indication: bilateral LE swelling / Spl. Instructions: / History: Technique: Color-flow and pulsed wave duplex ultrasound with compression of venous structures of the bilateral lower extremities. Comparison: None Available. Findings: Technically difficult examination due to patient's habitus. Duplex ultrasound with compression of the deep venous structures of the bilateral lower extremities from the common femoral vein through the popliteal vein is negative for DVT. The posterior tibial and peroneal veins are segmentally visualized and patent where seen. Normal venous waveforms and augmentation are noted throughout. Impression: No evidence for DVT in the bilateral lower extremities. Electronically signed by: Roseann Osorio MD (08/23/2020 10:55 AM) [id number] DICTATED AND SIGNED BY: ROSEANN OSORIO MD DATE: 08/23/20 1055 CC: CHEPE OSBORNE DO; CEDRICK TANG ~ IMAGING REPORT Signed PATIENT: SUNDEEP HOLMAN ACCOUNT: [id number] : 1950 LOCATION: [address] [place] [address] AGE: 70 SEX: M EXAM STATUS: ADM IN ORD. PHYSICIAN: CHEPE OSBORNE DO REASON: right low back pain/hip pain PROCEDURE: CT PELVIS WO CONTRAST CT LUMBAR SPINE WO CONTRAST, CT PELVIS WO CONTRAST History: Reason: right low back pain/hip pain / Spl. Instructions: / History: Technique: Noncontrast CT of the lumbar spine and pelvis was performed. Coronal and sagittal reconstructions were obtained. Comparison: CT abdomen pelvis March 08, 2020 Findings: Lumbar spine CT: T11 chronic superior endplate compression fracture, unchanged. No acute fracture. Multilevel vacuum disc phenomenon. Mild retrolisthesis L5 on S1. IVC filter noted with limbs extending beyond the IVC wall, unchanged. Nonobstructing intrarenal calculi. No hydronephrosis. T12-L1: Calcific posterior disc bulge. No canal narrowing. Facet arthropathy. No neuroforaminal narrowing. L1-L2: Posterior disc osteophyte complex. Probable right inferior subarticular recess disc extrusion with focus of gas. Subarticular recess narrowing. Mild canal narrowing. Facet arthropathy. Moderate right and mild left neuroforaminal narrowing. L2-L3: Posterior disc osteophyte complex and calcified disc protrusion. Mild canal narrowing. Subarticular recess. Mild facet arthropathy. Moderate to severe right and mild left neuroforaminal narrowing. L3-L4: A posterior disc protrusion. Subarticular recess narrowing, right greater than left. Mild canal narrowing. Facet arthropathy. Mild to moderate bilateral neuroforaminal narrowing. L4-L5: Posterior calcified disc bulge. Moderate facet arthropathy. No canal narrowing. Moderate left and mild right neuroforaminal narrowing. L5-S1: Mild retrolisthesis. Posterior disc bulge. Subarticular recess narrowing. No canal narrowing. Moderate left and mild right facet arthropathy. Severe left and moderate right neuroforaminal narrowing. CT pelvis: Normal alignment of the hips. No fracture. Left lateral hip subcutaneous edema overlying skin thickening. Additional nonspecific edema within the anterior abdominal wall subcutaneous tissues. Decompressed urinary bladder. Imaged bowel is nonobstructed. Impression: CT lumbar spine: 1. Moderate multilevel lumbar spondylosis most prominent L2-L3 and L3-L4. 2. Neuroforaminal narrowing most prominent right L2-L3 and left L5-S1. 3. Nonobstructing intrarenal calculi. No hydronephrosis. CT pelvis: 1. No acute osseous abnormality. 2. Left lateral hip subcutaneous swelling with overlying skin thickening, may relate to edema. Recommend completion for infection. Electronically signed by: Crow Conn DO (08/23/2020 1:08 PM) [id number] DICTATED AND SIGNED BY: CROW CONN DO DATE: 08/23/20 9513 CC: SAMEERA ELIZABETH MD; CHEPE OSBORNE DO; CEDRICK TANG ~ Course & Med Decision Making: Course & Med Decision Making Pertinent Labs and Imaging studies reviewed. (See chart for details) Concern for anasarca with possible early congestive heart failure, ckd, mild anemia (0.5 drop from prior) and back pain secondary to spondylosis and neuroforaminal narrowing. 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 Patient with an admission to [facility] within the past few months due to back pain and compression fracture. Will admit to Dr. Elizabeth and start an increased dose of oral Lasix. I have spoken with the patient and/or caregivers-pts' daughter. I have explained the patient's condition, diagnosis and treatment plan based on the information available to me at this time. I have answered the patient's and/or caregivers questions and answered any concerns. The patient and/or caregivers have as good an understanding of the patient's diagnosis, condition and treatment plan as can be expected at this point. The patient has been stabilized within the capability of the emergency department. The patient will be admitted for further care and management or will be moved to an observation or inpatient service. I have communicated with the staff or medical practitioner taking over this patient's care. Toby Disclaimer: Toby Disclaimer: This electronic medical record was generated, in whole or in part, using a voice recognition dictation system. Departure Departure: Impression: Primary Impression: Anasarca Additional Impressions: Leg swelling Lumbar back pain CKD (chronic kidney disease) Congestive heart failure Disposition: ADMITTED INPATIENT Admitting Physician: Sameera Elizabeth Condition: GUARDED Referrals: CEDRICK TANG (PCP) CHEPE OSBORNE DO Aug 23, 2020 09:48
[2020-08-23 10:19] LABS: BASO % 0 % (0-3); EOS % 0 % (0-3); HEMATOCRIT 36.6 % (39.0-53.0); HEMOGLOBIN 11.8 g/dL (13.0-17.5); LYMPH % 28 % (24-48); MEAN CORPUSCULAR HEMOGLOBIN 31 pg (25-35); MEAN CORPUSCULAR HGB CONC 32 g/dL (31-37); MEAN CORPUSCULAR VOLUME 96 fL (79-100); MONO # 0.4 x10^3/uL (0.0-1.1); MONO % 12 % (0-9); NEUT # 2.1 x10^3uL (1.8-7.7); NEUT % 60 % (31-73); PLATELET COUNT 102 x10^3/uL (140-400); RED CELL DISTRIBUTION WIDTH 15.4 % (11.5-14.5); WHITE BLOOD COUNT 3.5 x10^3/uL (4.0-11.0)
--- NOTE | 2020-08-23 10:29 | RAD ---
CHEST AP ONLY Clinical indications: EDEMA, FLUID OVERLOAD Comparison: June 12, 2019. Findings: No acute lung infiltrate or pleural effusion or pulmonary edema or lung mass or pneumothorax is seen. Cephalization of pulmonary flow is seen. The heart size is enlarged. Mediastinum is unremarkable. Impression: Mild cardiomegaly. Cephalization of pulmonary flow which may be an early indicator of fluid overload or early CHF. No pulmonary edema or pleural effusion is seen otherwise. Electronically signed by: Robreto Concepcion MD (08/23/2020 10:26 AM) [id number]
[2020-08-23 10:35] LABS: GFR 33.3; POTASSIUM 4.4 mmol/L (3.5-5.1)
[2020-08-23 10:47] LABS: ALBUMIN 2.8 g/dL (3.4-5.0); ALBUMIN/GLOBULIN RATIO 0.8 (1.0-1.7); MAGNESIUM 1.8 mg/dL (1.8-2.4); PHOSPHORUS 3.8 mg/dL (2.6-4.7); TOTAL BILIRUBIN 0.4 mg/dL (0.2-1.0); TOTAL PROTEIN 6.5 g/dL (6.4-8.2)
--- NOTE | 2020-08-23 10:57 | RAD ---
Exam: VENOUS LOWER EXT BILATERAL Indication: bilateral LE swelling / Spl. Instructions: / History: Technique: Color-flow and pulsed wave duplex ultrasound with compression of venous structures of the bilateral lower extremities. Comparison: None Available. Findings: Technically difficult examination due to patient's habitus. Duplex ultrasound with compression of the deep venous structures of the bilateral lower extremities from the common femoral vein through the popliteal vein is negative for DVT. The posterior tibial and peroneal veins are segmentally visualized and patent where seen. Normal venous waveforms and augmentation are noted throughout. Impression: No evidence for DVT in the bilateral lower extremities. Electronically signed by: Dane Osorio MD (08/23/2020 10:55 AM) [id number]
[2020-08-23] MEDS ORDERED: ACETAMINOPHEN 325 MG TABLET PO PRN (13:00)
[2020-08-23] MEDS ORDERED: ONDANSETRON PF 4 MG/2 ML VIAL. IVP PRN (13:00)
[2020-08-23] MEDS ORDERED: FUROSEMIDE 40 MG/4 ML VIAL IVP ONE (13:00)
[2020-08-23] MEDS ORDERED: MORPHINE SULFATE 2 MG/ML DISP.SYRIN. ONE (13:07)
--- NOTE | 2020-08-23 13:11 | RAD ---
CT LUMBAR SPINE WO CONTRAST, CT PELVIS WO CONTRAST History: Reason: right low back pain/hip pain / Spl. Instructions: / History: Technique: Noncontrast CT of the lumbar spine and pelvis was performed. Coronal and sagittal reconstructions were obtained. Comparison: CT abdomen pelvis March 08, 2020 Findings: Lumbar spine CT: T11 chronic superior endplate compression fracture, unchanged. No acute fracture. Multilevel vacuum disc phenomenon. Mild retrolisthesis L5 on S1. IVC filter noted with limbs extending beyond the IVC wall, unchanged. Nonobstructing intrarenal calculi. No hydronephrosis. T12-L1: Calcific posterior disc bulge. No canal narrowing. Facet arthropathy. No neuroforaminal narrowing. L1-L2: Posterior disc osteophyte complex. Probable right inferior subarticular recess disc extrusion with focus of gas. Subarticular recess narrowing. Mild canal narrowing. Facet arthropathy. Moderate right and mild left neuroforaminal narrowing. L2-L3: Posterior disc osteophyte complex and calcified disc protrusion. Mild canal narrowing. Subarticular recess. Mild facet arthropathy. Moderate to severe right and mild left neuroforaminal narrowing. L3-L4: A posterior disc protrusion. Subarticular recess narrowing, right greater than left. Mild canal narrowing. Facet arthropathy. Mild to moderate bilateral neuroforaminal narrowing. L4-L5: Posterior calcified disc bulge. Moderate facet arthropathy. No canal narrowing. Moderate left and mild right neuroforaminal narrowing. L5-S1: Mild retrolisthesis. Posterior disc bulge. Subarticular recess narrowing. No canal narrowing. Moderate left and mild right facet arthropathy. Severe left and moderate right neuroforaminal narrowing. CT pelvis: Normal alignment of the hips. No fracture. Left lateral hip subcutaneous edema overlying skin thickening. Additional nonspecific edema within the anterior abdominal wall subcutaneous tissues. Decompressed urinary bladder. Imaged bowel is nonobstructed. Impression: CT lumbar spine: 1. Moderate multilevel lumbar spondylosis most prominent L2-L3 and L3-L4. 2. Neuroforaminal narrowing most prominent right L2-L3 and left L5-S1. 3. Nonobstructing intrarenal calculi. No hydronephrosis. CT pelvis: 1. No acute osseous abnormality. 2. Left lateral hip subcutaneous swelling with overlying skin thickening, may relate to edema. Recommend completion for infection. Electronically signed by: Crow Barron DO (08/23/2020 1:08 PM) [id number]
[2020-08-23] MEDS: MORPHINE SULFATE 2 MG/ML DISP.SYRIN. IVP PRN ×2 (13:16→16:03)
[2020-08-23 13:45] LABS: CLARITY,URINE CLEAR; COLOR,URINE YELLOW; GLUCOSE,URINE 100 mg/dL (NEG)
[2020-08-23 13:46] LABS: BILIRUBIN,URINE NEG (NEG); NITRITE,URINE NEG (NEG); UROBILINOGEN,URINE 0.2 mg/dL (0.2 mg/dL)
[2020-08-23 13:47] VITALS: BP 183/78
[2020-08-23 13:47] LABS: BACTERIA,URINE 0 /HPF (0-FEW); RBC,URINE OCC /HPF (0-2); WBC,URINE 0 /HPF (0-4)
--- NOTE | 2020-08-23 15:31 | NUR ---
PATIENT IS A 70 Y O M, ARRIVED TO ROOM 113 VIA EMS. VS OBTAINED AND STABLE. PT STATED HE USES ELECTRIC W/C AT HOME, PT STATED HE WALK FOR ABOUT 20 FEET WITH A WALKER, URINAL OBTAINED FOR PT. PATIENT STATED HIS PAIN LEVEL IS 6 NOW AND BETTER AFTER MEDICATION GIVEN TO HIM IN ED. PT DENIES N/S, SOA. PATIENT HAS OPEN BLISTER TO LLE, AND MULTIPLE OLD SCABS ON BODY, PATIENT STATED HE HAS A BLISTERS R/T SOME TYPE OF AUTOIMMUNE DISORDER BUT HE CAN'T RECALL THE NAME OF IT, DRESSING INTACT. PT STATED HE HAS SHORT TERM MEMORY R/T OLD HEAD INJURY. PATIENT IS CURRENTLY AWAKE AND RESTING COMFORTABLY IN A BED. WILL CONTINUE TO MONITOR.
[2020-08-23] MEDS ORDERED: DEXTROSE 50% 25 GM / 50ML DISP.SYRIN. IV PRN (16:00)
[2020-08-23] MEDS: FUROSEMIDE 80 MG TABLET PO SCH (16:02)
[2020-08-23 16:25] VITALS: BP 175/79
[2020-08-23] MEDS: INSULIN LISPRO 300 UNITS/3 ML VIAL. SQ SCH ×2 (17:00→17:28)
[2020-08-23] MEDS: CARVEDILOL 12.5 MG TABLET PO SCH (17:24)
[2020-08-23] MEDS: oxyCODONE/APAP 5/325 1 TAB TABLET PO PRN ×2 (17:25→23:43)
--- NOTE | 2020-08-23 18:57 | HP ---
ADMIT DATE: 08/23/2020 ATTENDING PHYSICIAN: Dr. Elizabeth. CHIEF COMPLAINT: Swelling and difficulty getting around. HISTORY OF PRESENT ILLNESS: The patient is a 70-year-old white male admitted through the ED with increasing weight gain of 30 pounds over the last several weeks. He has multiple medical issues including morbid obesity, diabetes, hypertension, questionable cirrhosis, gastroesophageal reflux disease and supposedly documented pemphigoid vulgaris. He drinks a lot of fluid. He has had a previous closed head injury and has cognitive impairment. Information obtained from a daughter. He lives independently. He is ____ with anasarca. His cardiac enzymes showed no evidence of coronary ischemia; however, creatinine is elevated at 2.0 mg/dL, I do not know whether this is baseline. On exam, he is volume overloaded. He has 4+ pedal edema. He has significant anasarca. BNP is not particularly elevated. PAST MEDICAL HISTORY: Significant for type 2 diabetes, morbid obesity, chronic kidney disease stage 4, cirrhosis of the liver, obesity, gastroesophageal reflux disease and bullous skin disease consistent with pemphigoid. ALLERGIES: He has no recorded drug allergies. CURRENT MEDICINES: Reviewed. He was scheduled to take Bupropion daily, Coreg 12.5 mg b.i.d., vitamin D3, Flexeril p.r.n., Uloric 80 mg daily, Lasix 20 mg daily, hydrocodone p.r.n. pain, Regular insulin and Lantus. Losartan 50 mg daily, magnesium oxide, metoclopramide, moxifloxacin, nepafenac eyedrops, Protonix, oxycodone, prednisolone acetate eyedrops, Lyrica and Aldactone. SOCIAL HISTORY: He is a nonsmoker and nondrinker. FAMILY HISTORY: Unobtainable. He is quite forgetful. REVIEW OF SYSTEMS: Significant for about 30-pound weight gain in the last 2 weeks. He denied any chest pain or palpitations. He does drink quite a bit of excess fluid. He has poor memory. All other systems reviewed and turned to be negative. PHYSICAL EXAMINATION: GENERAL: When I saw him, this is a pleasant portly gentleman. INITIAL VITAL SIGNS: Showed a blood pressure of 175/79, pulse is 58 and regular, temperature 97.5 degrees Fahrenheit, oxygen saturation 98% on room air. HEENT: Head is without trauma. The pupils are reactive. The sclerae are nonicteric. The oropharynx is clear. NECK: Supple. There is no stridor or thyromegaly. LUNGS: Fairly good breath sounds. Diminished breath sounds at the bases. CARDIOVASCULAR: Showed distant heart tones. No obvious gallops or rubs. Peripheral pulses are palpable and full. ABDOMEN: Markedly obese, protuberant. There is no ascites. I could not palpate any liver or spleen enlargement due to his size. Bowel sounds are normoactive. EXTREMITIES: Show 4+ pitting edema extending all the way up to his thighs. SKIN: Otherwise warm and dry. There are variant scars showing bullous disease that has been healed. There are no active bullae at this time. NEUROLOGIC: The patient's speech is fluent. He has no focal deficits. He is forgetful. He has no focal deficit at this time. PERTINENT LABORATORY AND X-RAY STUDIES: He had lower extremity ultrasound, which ruled out any evidence of deep vein thrombosis. A chest x-ray showed cardiomegaly, cephalization of pulmonary vasculature indicating volume overload. No pulmonary edema or effusion is seen. CT of the pelvis showed normal alignment of the hips. There is retrolisthesis and posterior disk bulge at the L5-S1 level, decompressed urinary bladder, moderate multilevel lumbar spondylosis, most prominent at L2-L3 and L3-L4, neuro foraminal narrowing and a nonobstructive intrarenal calculi without any hydronephrosis. Lumbar CT scan showed once again moderate multilevel lumbar spondylosis without any acute injuries. The hemoglobin on admission was 11.8 g/dL with a white count of 3500. Electrolytes showed sodium of 140 mEq, potassium 4.4, creatinine is 2.0 mg/dL, with a BUN of 34. Cardiac enzymes are negative. Liver function was unremarkable. Bilirubin was normal. Transaminases were normal. Nonfasting blood sugar was 117. ASSESSMENT: 1. This 70-year-old gentleman has anasarca. 2. Volume overload to dietary indiscretion with excess fluid. 3. Chronic kidney disease stage 4. 4. History of bullous pemphigoid. 5. Type 2 diabetes mellitus. 6. Gastroesophageal reflux disease. 7. Essential hypertension. 8. Generalized debilitation. 9. 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 PLAN: 1. Admit to the inpatient unit. 2. Diabetic diet. 3. I have increased his diuresis to 80 mg Lasix twice a day. 4. Daily weights with close recording. 5. 1200 mL daily fluid restriction to achieve a net loss of fluid. 6. Serial daily chemistries. 7. Continue some home meds. SAMEERA ELIZABETH MD DR: YANELI/juan JOB#: [id number] / [id number] CEDRICK Yousif
[2020-08-23 19:46] VITALS: BP 150/69
[2020-08-23] MEDS: PREGABALIN 75 MG CAPSULE PO SCH (21:12)
[2020-08-23 22:14] VITALS: BP 127/62
--- NOTE | 2020-08-23 23:50 | EKG ---
[address] [address] Test Date: 2020-08-23 Test Time: 10:19:51 Pat Name: SUNDEEP HOLMAN Department: Room: Gender: M Can Sealer: BENOIT : 1950 Requested By: CHEPE OSBORNE Order Number: [id number] Reading MD: Measurements Intervals [place] Rate: 61 P: 48 MS: 144 QRS: -38 QRSD: 118 T: 66 QT: 422 QTc: 426 Interpretive Statements SINUS RHYTHM ABNORMAL LEFT AXIS DEVIATION R-S TRANSITION ZONE IN V LEADS DISPLACED TO THE LEFT LEFT ANTERIOR FASCICULAR BLOCK ABNORMAL ECG RI6.02 No previous ECG available for comparison
[2020-08-24 05:19] VITALS: BP 147/69
[2020-08-24] MEDS ORDERED: LEVOTHYROXINE 100 MCG TABLET PO SCH (06:00)
[2020-08-24] MEDS: oxyCODONE/APAP 5/325 1 TAB TABLET PO PRN (06:16)
[2020-08-24 06:21] LABS: CALCIUM 8.8 mg/dL (8.5-10.1); CREATININE 2.2 mg/dL (0.7-1.3); GFR 29.8; POTASSIUM 4.4 mmol/L (3.5-5.1)
[2020-08-24] MEDS: INSULIN LISPRO 300 UNITS/3 ML VIAL. SQ SCH ×6 (08:00→17:00)
[2020-08-24] MEDS: PREGABALIN 75 MG CAPSULE PO SCH ×3 (08:18→20:16)
[2020-08-24] MEDS: PANTOPRAZOLE 40 MG TABLET. PO SCH (08:18)
[2020-08-24] MEDS: FUROSEMIDE 80 MG TABLET PO SCH (08:18)
[2020-08-24] MEDS: CARVEDILOL 12.5 MG TABLET PO SCH ×2 (08:19→17:00)
[2020-08-24] MEDS ORDERED: LOSARTAN 50 MG TABLET. PO SCH (09:00)
[2020-08-24] MEDS ORDERED: buPROPion XL 300 MG TAB.ER.24H. PO SCH (09:00)
[2020-08-24] MEDS ORDERED: FEBUXOSTAT 40 MG TABLET PO SCH (09:00)
[2020-08-24] MEDS ORDERED: INSULIN GLARGINE SYRINGE. SQ SCH (09:00)
[2020-08-24 10:28] VITALS: BP 150/73
[2020-08-24] MEDS ORDERED: ASPI81TA59 PO (13:40)
[2020-08-24] MEDS ORDERED: MINO100T2 PO (13:40)
[2020-08-24] MEDS ORDERED: HYDR-2155 PO (13:40)
[2020-08-24] MEDS ORDERED: LINA5TAB4 PO (13:40)
[2020-08-24] MEDS ORDERED: AMLO-186 PO (13:40)
[2020-08-24] MEDS ORDERED: ROSUVASTATIN CA10 MG PO (13:49)
[2020-08-24] MEDS ORDERED: GABA-585 PO (13:49)
[2020-08-24] MEDS ORDERED: TAMS0.4C97 PO (13:49)
[2020-08-24] MEDS ORDERED: INSU100C SQ (13:49)
[2020-08-24] MEDS ORDERED: INSU100I13 SQ (13:49)
[2020-08-24 14:26] VITALS: BP 132/50
[2020-08-24] MEDS: FUROSEMIDE 40 MG/4 ML VIAL IVP SCH (14:51)
[2020-08-24] MEDS ORDERED: HYDROcodone/APAP 10/325 1 TAB TABLET PO PRN (18:00)
[2020-08-24 19:31] VITALS: BP 160/79
[2020-08-24] MEDS: ATORVASTATIN CALCIUM 20 MG TABLET PO SCH (20:16)
[2020-08-24] MEDS ORDERED: prednisoLONE ACETATE 1% OPHTH SUSPENSION 5ML BOTTLE. OD SCH (21:00)
[2020-08-24] MEDS ORDERED: CYCLOBENZAPRINE 10 MG TABLET. PO SCH (21:00)
[2020-08-24] MEDS ORDERED: METOCLOPRAMIDE 10 MG TABLET PO SCH (21:00)
[2020-08-24] MEDS ORDERED: MOXIFLOXACIN 0.5% OPHTH SOLUTION 3ML BOTTLE. OU SCH (21:00)
[2020-08-24] MEDS: GABAPENTIN 100 MG CAPSULE. PO SCH (21:00)
[2020-08-24] MEDS ORDERED: INSULIN GLARGINE HUM REC ANLOG 25 UNIT SQ SCH (21:00)
[2020-08-24 23:12] VITALS: BP 141/68
[2020-08-24] MEDS: HYDROcodone/APAP 5/325MG 1 TAB TABLET PO PRN (23:16)
--- NOTE | 2020-08-24 23:50 | PN ---
DATE: 08/24/2020 SUBJECTIVE: The patient is a 70-year-old male patient who was admitted yesterday with generalized anasarca, apparently was markedly volume overloaded, has acute on chronic kidney injury. He also complained of severe back pain. He normally lives alone. His [id number]-[id number]-zoo takes care of him and spends about 8 hours every day with him during the daytime, while her children are in the school. PHYSICAL EXAMINATION: GENERAL: When I saw him this afternoon, he looked well and was clearly in no apparent respiratory distress. There is no pallor, jaundice, cyanosis or thyromegaly. No jugular venous distention or limb edema, generalized anasarca. VITAL SIGNS: His heart rate was 50, blood pressure 150/73, temperature was 98, respiratory rate was 20 and oxygen saturation was 96% on room air. HEAD, EYES, EARS, NOSE AND THROAT: Showed normocephalic, atraumatic. NECK: Supple. HEART: Showed normal first and second heart sounds. No gallop or murmur. CHEST: Shows central trachea, equally reduced expansion, reduced air entry, vesicular sounds. I could not really appreciate any crepitation or rhonchi. ABDOMEN: Markedly distended, soft, nontender. NEUROLOGIC: He is awake, alert, responding appropriately. All cranial nerves are intact. EXTREMITIES: He moves all extremities without difficulty. Examination of the extremities showed no clubbing, cyanosis, but marked generalized anasarca. His intake was 480, output was 4575. LABORATORY DATA: His lab work as of this morning showed a serum sodium of 140, potassium 4.4, chloride 105, bicarbonate 28, anion gap of 7, BUN 37, creatinine 2.2, estimated GFR was 29 mL per minute, his glucose was 84 and calcium was 8.8. White cell count was 3500, hemoglobin 12, hematocrit 36, MCV 96 and platelet count of 102,000. His urinalysis showed the urine was yellow, clear with a pH of 6, specific gravity 1.025. There is large amount of protein and small amount of glucose. The urine was negative for ketones, trace for blood, negative for nitrite and leukocyte esterase. There are no rbc's, no wbc's, and no bacteria. The CT scan of the lumbar spine showed the patient has moderate multilevel lumbar spondylosis, most prominent at L2-L3 and L4-L5, neural foraminal narrowing most prominent at L3-L4 and L5-S1. Has no obstructing intrarenal calculi, no hydronephrosis. ASSESSMENT: 1. This is a 70-year-old male patient who was admitted with generalized anasarca. 2. Acute on chronic kidney injury. His baseline creatinine is about 1.92. 3. Type 2 diabetes mellitus. 4. Hypertension. 5. 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 6. He also carries a diagnosis of bullous pemphigoid. PLAN: My plan is to change his IV Lasix to Ativan to be given IV. I will discontinue his losartan, and if necessary, we can add hydralazine. His carvedilol 12.5 mg, if he continues to be bradycardic, we can cut that down also. SHILPI TAYLOR MD DR: OWEN/juan JOB#: [id number] / [id number]
[2020-08-25] MEDS: LEVOTHYROXINE 88 MCG TABLET PO SCH (06:00)
[2020-08-25 06:26] VITALS: BP 168/77
[2020-08-25 07:52] LABS: ALBUMIN 2.6 g/dL (3.4-5.0); ALBUMIN/GLOBULIN RATIO 0.7 (1.0-1.7); CALCIUM 8.5 mg/dL (8.5-10.1); CREATININE 2.3 mg/dL (0.7-1.3); GFR 28.3; POTASSIUM 4.4 mmol/L (3.5-5.1); TOTAL BILIRUBIN 0.6 mg/dL (0.2-1.0); TOTAL PROTEIN 6.2 g/dL (6.4-8.2)
[2020-08-25] MEDS: LINAGLIPTIN 5 MG TABLET PO SCH (07:55)
[2020-08-25] MEDS: buPROPion XL 150 MG TAB.ER.24H PO SCH (07:55)
[2020-08-25] MEDS: ASPIRIN CHEWABLE 81 MG TABLET. PO SCH (07:55)
[2020-08-25] MEDS: FUROSEMIDE 40 MG/4 ML VIAL IVP SCH ×2 (07:56→13:55)
[2020-08-25] MEDS: CARVEDILOL 12.5 MG TABLET PO SCH ×2 (07:56→17:13)
[2020-08-25] MEDS: PANTOPRAZOLE 40 MG TABLET. PO SCH (07:56)
[2020-08-25] MEDS: TAMSULOSIN 0.4 MG CAP.ER.24H. PO SCH (07:56)
[2020-08-25] MEDS: MINOCYCLINE 50 MG CAPSULE PO SCH (07:57)
[2020-08-25] MEDS: GABAPENTIN 100 MG CAPSULE. PO SCH ×3 (07:57→20:51)
[2020-08-25] MEDS: INSULIN LISPRO 300 UNITS/3 ML VIAL. SQ SCH ×3 (07:59→17:00)
[2020-08-25 08:23] LABS: HEMATOCRIT 35.9 % (39.0-53.0); HEMOGLOBIN 11.7 g/dL (13.0-17.5); RED BLOOD COUNT 3.74 x10^6/uL (4.30-5.70); RED CELL DISTRIBUTION WIDTH 15.3 % (11.5-14.5); WHITE BLOOD COUNT 4.9 x10^3/uL (4.0-11.0)
[2020-08-25] MEDS ORDERED: NEPAFENAC 0.3% OD SCH (09:00)
[2020-08-25] MEDS ORDERED: SPIRONOLACTONE 25 MG TABLET PO SCH (09:00)
[2020-08-25 11:30] VITALS: BP 165/72
[2020-08-25 13:51] LABS: THYROID STIM HORMONE (TSH) 3.105 uIU/mL (0.358-3.740)
[2020-08-25 15:50] VITALS: BP 145/72
--- NOTE | 2020-08-25 16:17 | NUR ---
NURSING NOTE CONSULT CARDIOLOGY CONSULT CALLED TO [facility]. LANEY JAIMES.
--- NOTE | 2020-08-25 17:30 | RAD ---
FOOT LEFT 3V History: Reason: PAIN / Spl. Instructions: / History: Technique: 3 views left foot. Comparison: None. Findings: Normal alignment. No fracture. Mild first MTP DJD. Diffuse foot soft tissue swelling. Plantar calcaneal spur. Vascular calcifications. Mild ankle degenerative changes. Impression: 1. No acute osseous abnormality. 2. Diffuse foot soft tissue swelling. Electronically signed by: Crow Barron DO (08/25/2020 5:27 PM) [id number]
[2020-08-25 19:30] VITALS: BP 146/80
[2020-08-25] MEDS: ATORVASTATIN CALCIUM 20 MG TABLET PO SCH (20:51)
[2020-08-25] MEDS: HYDROcodone/APAP 5/325MG 1 TAB TABLET PO PRN (20:52)
[2020-08-25] MEDS: INSULIN GLARGINE SYRINGE. SQ SCH (20:53)
[2020-08-25 22:48] VITALS: BP 133/68
--- NOTE | 2020-08-25 23:47 | PN ---
DATE: 08/25/2020 SUBJECTIVE: The patient is resting, slightly propped up in bed, in no apparent respiratory distress. He continued to complain of swelling of both lower extremity, pain in his left heel, chronic shortness of breath, but denied any orthopnea or paroxysmal nocturnal dyspnea. I did treat him with IV Lasix and in fact today, he received 80 mg of IV Lasix twice a day. His lab work showed that his creatinine has been steadily rising from 2 to 2.3. I am not sure the excessive diuresis making any difference to him. PHYSICAL EXAMINATION: GENERAL: When I examined him this afternoon, he was resting slightly propped up in bed, in no apparent respiratory distress. There was no pallor, jaundice or cyanosis. No lymphadenopathy, no thyromegaly. No jugular venous distention. He has bilateral lower limb edema. He has also an open area on the anterior aspect of the left leg likely one of the bullous pemphigoid lesions. VITAL SIGNS: His heart rate was 74, blood pressure was 165/72, temperature was 18 and 98.9, respiratory rate was 24, and oxygen saturation was 95%. HEAD, EYES, EARS, NOSE AND THROAT: Showed normocephalic, atraumatic. NECK: Supple. HEART: Showed normal first and second heart sounds. No gallop, rub or murmur. CHEST: Showed central trachea, equal reduced expansion, reduced air entry, vesicular sounds. No crepitation or rhonchi. ABDOMEN: Distended, soft, nontender. No guarding or rigidity. No organomegaly. All hernial orifices are intact. Bowel sounds normal. NEUROLOGIC: He was awake, alert, responding appropriately. All cranial nerves intact. He moves extremities spontaneously, although he is mostly bed bound. Apparently at home, he is able to use a walker and a cane, although here his abilities have been very limited. IMAGING STUDIES: His chest x-ray showed that he has mild cardiomegaly with cephalization of pulmonary flow, which may be an indicator of fluid overload or early congestive heart failure. ASSESSMENT: 1. This is a 70-year-old male patient who was admitted with generalized anasarca. His chest x-ray also showed cardiomegaly and cephalization of pulmonary results. 2. Acute on chronic kidney injury. His baseline creatinine is about 1.92. In fact, his creatinine is up to 2.3 after he received multiple doses of IV Lasix. 3. Type 2 diabetes mellitus seems to be reasonably controlled. 4. Hypertension seems to be well controlled. 5. 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 6. He also carries a diagnosis of bullous pemphigoid and has some few lesions on his skin including the left anterior aspect of the left leg. PLAN: I actually held his losartan and switched him to IV Lasix. I will consult Physical and Occupational Therapy. X-ray of his left heel. I did consult the mainframe systems administrator to assist with his management and also wound care team to assist with treatment of his wounds. SHILPI TAYLOR MD DR: OWEN/juan JOB#: [id number] / [id number]
[2020-08-26 00:06] LABS: HEMOGLOBIN A1C 5.8 % (4.8-5.6)
[2020-08-26 05:18] VITALS: BP 123/65
[2020-08-26] MEDS: LEVOTHYROXINE 88 MCG TABLET PO SCH (05:21)
[2020-08-26 07:38] LABS: HEMATOCRIT 37.5 % (39.0-53.0); HEMOGLOBIN 12.3 g/dL (13.0-17.5); RED BLOOD COUNT 3.96 x10^6/uL (4.30-5.70); RED CELL DISTRIBUTION WIDTH 15.2 % (11.5-14.5); WHITE BLOOD COUNT 4.4 x10^3/uL (4.0-11.0)
[2020-08-26] MEDS: CARVEDILOL 12.5 MG TABLET PO SCH ×2 (08:00→16:57)
[2020-08-26 08:13] LABS: ALBUMIN 2.8 g/dL (3.4-5.0); ALBUMIN/GLOBULIN RATIO 0.8 (1.0-1.7); CREATININE 2.4 mg/dL (0.7-1.3); POTASSIUM 3.7 mmol/L (3.5-5.1); TOTAL BILIRUBIN 0.5 mg/dL (0.2-1.0); TOTAL PROTEIN 6.4 g/dL (6.4-8.2)
--- NOTE | 2020-08-26 08:30 | PDOC2 ---
NIKITA VARELA BUFFET MANAGER 08/26/20 0830: CARDIAC CONSULT DATE OF CONSULT DOS: DATE: 08/26/20 TIME: 08:22 REASON FOR CONSULT Reason for Consult CHF REFERRING PHYSICIAN Referring Physician Dr. Rodriguez SOURCE Source: Chart review, Patient HPI History of Present Illness This is a 70 yo male who presented secondary to increased LE edema over the last week. Has history of cognitive impairment secondary to brain injury. Has poor short term memory. Denies any chest pain, palpitations, dizziness, diaphoresis, or nausea/vomiting. Thinks he sees [facility] cardiology. No recent fevers/il lness that he is aware on. Take his medication routinely. PAST MEDICAL HISTORY Cardiovascular: CHF Pulmonary: Other (NEELAM) GI: GERD Heme/Onc: Other (DVT) Hepatobiliary: Cirrhosis Psych: Depression Musculoskeletal: Osteoarthritis Rheumatologic: Gout Renal/: Chronic renal insuff Endocrine: Diabetes, Hypothyroidism PAST SURGICAL HISTORY Past Surgical History: Total knee replacement (bilateral), Other (gastric bypass ) FAMILY HISTORY Family History: Family History Unknown SOCIAL HISTORY Smoke: Quit ALCOHOL: other (quit) Drugs: None Lives: Alone (daughter is there 6-8 hrs per day) CURRENT MEDICATIONS Current Medications Current Medications Ondansetron HCl (Zofran) 4 mg PRN Q4HRS PRN IVP NAUSEA/VOMITING; Start 08/23/20 at 13:00; Stop 08/24/20 at 12:59; Status DC Morphine Sulfate (Morphine 2mg Syringe) 2 mg PRN Q2HR PRN IVP PAIN Last administered on 08/23/20at 16:03; Start 08/23/20 at 13:00; Stop 08/24/20 at 12:59; Status DC Acetaminophen (Tylenol) 650 mg PRN Q4HRS PRN PO FEVER > 100.3'F; Start 08/23/20 at 13:00; Stop 08/24/20 at 12:59; Status DC Furosemide (Lasix) 80 mg BID94 PO Last administered on 08/24/20at 08:18; Start 08/23/20 at 16:00; Stop 08/24/20 at 13:29; Status DC Furosemide (Lasix) 60 mg 1X ONCE IVP Last administered on 08/23/20at 13:16; Start 08/23/20 at 13:00; Stop 08/23/20 at 13:08; Status DC Morphine Sulfate (Morphine 2mg Syringe) 2 mg STK-MED ONCE .ROUTE ; Start 08/23/20 at 13:07; Stop 08/23/20 at 13:07; Status DC Insulin Human Lispro (HumaLOG) 0-9 UNITS TIDWMEALS SQ Last administered on 08/24/20at 16:56; Start 08/23/20 at 17:00; Stop 08/24/20 at 21:43; Status DC Dextrose (Dextrose 50%-Water Syringe) 12.5 gm PRN Q15MIN PRN IV SEE COMMENTS; Start 08/23/20 at 16:00 Bupropion HCl (Wellbutrin Xl) 300 mg DAILY PO Last administered on 08/24/20at 08:19; Start 08/24/20 at 09:00; Stop 08/24/20 at 19:16; Status DC Carvedilol (Coreg) 12.5 mg BIDWMEALS PO Last administered on 08/25/20at 17:13; Start 08/23/20 at 17:00 Vitamin D (Vitamin D3) 50,000 unit WEEKLY PO ; Start 08/30/20 at 09:00; Stop 08/24/20 at 21:44; Status DC Insulin Human Lispro (HumaLOG) 20 units TIDWMEALS SQ Last administered on 08/23/20at 17:28; Start 08/23/20 at 17:00; Stop 08/24/20 at 20:25; Status DC Levothyroxine Sodium (Synthroid) 100 mcg DAILY06 PO Last administered on 08/24/20at 06:16; Start 08/24/20 at 06:00; Stop 08/24/20 at 19:29; Status DC Losartan Potassium (Cozaar) 50 mg DAILY PO Last administered on 08/24/20at 08:18; Start 08/24/20 at 09:00; Stop 08/24/20 at 13:29; Status DC Oxycodone/ Acetaminophen (Percocet 5/325) 1 tab PRN Q6HRS PRN PO PAIN Last administered on 08/24/20at 06:16; Start 08/23/20 at 17:00; Stop 08/24/20 at 21:44; Status DC Pregabalin (Lyrica) 75 mg TID PO Last administered on 08/24/20at 20:16; Start 08/23/20 at 21:00; Stop 08/24/20 at 21:41; Status DC Febuxostat (Uloric) 80 mg DAILY PO Last administered on 08/24/20at 08:19; Start 08/24/20 at 09:00; Stop 08/24/20 at 21:44; Status DC Insulin Glargine (Lantus Syringe) 80 unit DAILY SQ ; Start 08/24/20 at 09:00; Stop 08/24/20 at 21:43; Status DC Pantoprazole Sodium (Protonix) 40 mg DAILY PO Last administered on 08/25/20at 07:56; Start 08/24/20 at 09:00 Furosemide (Lasix) 80 mg BID92 IVP Last administered on 08/25/20at 13:55; Start 08/24/20 at 14:00 Aspirin (Aspirin Chewable) 81 mg DAILY PO Last administered on 08/25/20at 07:55; Start 08/25/20 at 09:00 Cyclobenzaprine HCl (Flexeril) 10 mg TID PO ; Start 08/24/20 at 21:00; Stop 08/24/20 at 21:42; Status DC Gabapentin (Neurontin) 100 mg TID PO Last administered on 08/25/20at 20:51; Start 08/24/20 at 21:00 Acetaminophen/ Hydrocodone Bitart (Lortab 5/325) 1 tab PRN Q8HRS PRN PO PAIN Last administered on 08/25/20at 20:52; Start 08/24/20 at 18:00 Acetaminophen/ Hydrocodone Bitart (Lortab 10/325) 1 tab PRN Q6HRS PRN PO PAIN; Start 08/24/20 at 18:00; Status UNV Linagliptin (Tradjenta) 5 mg DAILY PO Last administered on 08/25/20at 07:55; Start 08/25/20 at 09:00 Metoclopramide HCl (Reglan) 10 mg TID PO ; Start 08/24/20 at 21:00; Stop 08/24/20 at 21:42; Status DC Moxifloxacin HCl (Vigamox) 1 drop TID OU ; Start 08/24/20 at 21:00; Stop 08/24/20 at 21:43; Status DC Nepafenac (Ilevro) 1 drop DAILY OD ; Start 08/25/20 at 09:00; Stop 08/24/20 at 21:43; Status DC Prednisolone Acetate (Pred Forte) 1 drop TID OD ; Start 08/24/20 at 21:00; Stop 08/24/20 at 21:43; Status DC Spironolactone (Aldactone) 25 mg DAILY PO ; Start 08/25/20 at 09:00; Stop 08/24/20 at 21:43; Status DC Tamsulosin HCl (Flomax) 0.4 mg DAILY PO Last administered on 08/25/20at 07:56; Start 08/25/20 at 09:00 Non-Formulary Medication (Insulin Glargine,Hum.rec.anlog (Lantus Solostar)) 25 unit QHS SQ ; Start 08/24/20 at 21:00; Stop 08/24/20 at 21:45; Status DC Insulin Human Lispro (HumaLOG) 12 units TIDWMEALS SQ Last administered on at 12:01; Start 08/25/20 at 08:00 Minocycline HCl (Minocin) 100 mg DAILY PO Last administered on 08/25/20at 07:57; Start 08/25/20 at 09:00 Atorvastatin Calcium (Lipitor) 40 mg QHS PO Last administered on 08/25/20at 20:51; Start 08/24/20 at 21:00 Bupropion HCl (Wellbutrin Xl) 450 mg DAILY PO Last administered on 08/25/20at 07:55; Start 08/25/20 at 09:00 Levothyroxine Sodium (Synthroid) 88 mcg DAILY06 PO Last administered on 08/26/20at 05:21; Start 08/25/20 at 06:00 Insulin Glargine (Lantus Syringe) 25 unit QHS SQ Last administered on 08/25/20at 20:53; Start 08/25/20 at 21:00 Active Scripts Active Cyclobenzaprine Hcl 10 Mg Tablet 1 Tab PO TID Cyclobenzaprine Hcl 10 Mg Tablet 10 Mg PO TID PRN Percocet 5-325 Mg Tablet (Oxycodone Hcl/Acetaminophen) 1 Each Tablet 1 Tab PO PRN Q6HRS PRN Reported Flomax (Tamsulosin Hcl) 0.4 Mg Cap.er.24h 1 Cap PO DAILY Rosuvastatin Calcium 10 Mg Tablet 1 Tab PO QHS Lantus Solostar (Insulin Glargine,Hum.rec.anlog) 100 Unit/1 Ml Insuln.pen 25 Unit SQ QHS Humalog (Insulin Lispro) 100 Unit/1 Ml Cartridge 12 Unit SQ TIDWMEALS Gabapentin (Gabapentin) 100 Mg Capsule 100 Mg PO TID Tradjenta (Linagliptin) 5 Mg Tablet 5 Mg PO DAILY Minocycline Hcl 100 Mg Tablet 1 Tab PO DAILY 30 Days Hydrocodone-Apap 5-325 (Hydrocodone Bit/Acetaminophen) 1 Each Tablet 1 Tab PO PRN Q8HRS PRN Amlodipine Besylate 5 Mg Tablet 1 Tab PO DAILY Children's Aspirin (Aspirin) 81 Mg Tab.chew 81 Mg PO DAILY Ilevro (Nepafenac) 1.7 Ml Drops.susp 1 Drop RIGHTEYE DAILY use daily till gone Prednisolone Acetate 5 Ml Drops.susp 1 Drop RIGHTEYE TID use twice today than starting tomorrow 3 x daily till gone. Vigamox (Moxifloxacin Hcl) 3 Ml Drops 1 Drop RIGHTEYE TID use twice today than starting tomorrow 3 x daily till gone Metoclopramide Hcl 10 Mg Tablet 10 Mg PO Spironolactone 25 Mg Tablet 1 Tab PO DAILY Magox 400 (Magnesium Oxide) 400 Mg Tablet 400 Mg PO Omeprazole 20 Mg Capsule.dr 1 Cap PO DAILY Furosemide 20 Mg Tablet 1 Tab PO DAILY PRN Uloric (Febuxostat) 80 Mg Tablet 80 Mg PO DAILY Lyrica (Pregabalin) 75 Mg Capsule 75 Mg PO TID Carvedilol (Carvedilol) 12.5 Mg Tablet 12.5 Mg PO BIDWMEALS Bupropion Xl (Bupropion Hcl) 300 Mg Tab.er.24h 300 Mg PO DAILY Levothyroxine Sodium 100 Mcg Tablet 100 Mcg PO DAILY Vitamin D3 (Cholecalciferol (Vitamin D3)) 50,000 Unit Capsule 50,000 Unit PO WEEKLY Deshler 10-325 Tablet (Hydrocodone Bit/Acetaminophen) 1 Each Tablet 1 Each PO PRN Q6HRS PRN Humalog (Insulin Lispro) 100 Unit/1 Ml Insuln.pen 20 Unit SQ TIDWMEALS Lantus Solostar (Insulin Glargine,Hum.rec.anlog) 100 Unit/1 Ml Insuln.pen 80 Unit SQ DAILY Losartan Potassium (Losartan Potassium) 50 Mg Tablet 50 Mg PO DAILY ALLERGIES Allergies: Coded Allergies: No Known Drug Allergies (Unverified , 08/23/20) ROS Review of Systems 14 point ROS conducted with pertinent positives noted above in HPI PHYSICAL EXAM General: Alert, Oriented X3, Cooperative, No acute distress HEENT: Atraumatic, Mucous membr. moist/pink Lungs: Other (diminished bases) Heart: Regular rate, Normal S1, Normal S2 Abdomen: Soft, No tenderness Extremities: Other (1-2+ bilateral LE edema ) Skin: No significant lesion (blister to RLE) Neuro: Normal speech, Sensation intact Psych/Mental Status: Mood NL, Other (forgetful) MUSCULOSKELETAL: Osteoarthritic changes both hands VITALS Vital Signs Vital Signs Date Time Temp Pulse Resp B/P (MAP) Pulse Ox O2 Delivery O2 Flow Rate FiO2 08/26/20 05:18 97.8 52 18 123/65 (84) 96 Room Air 08/24/20 23:12 5.0 LABS LABS Laboratory Tests Test 08/24/20 11:22 08/24/20 16:09 08/24/20 20:30 08/25/20 06:40 Glucose (Fingerstick) 170 mg/dL (70-99) 163 mg/dL (70-99) 115 mg/dL (70-99) White Blood Count 4.9 x10^3/uL (4.0-11.0) Red Blood Count 3.74 x10^6/uL (4.30-5.70) Hemoglobin 11.7 g/dL (13.0-17.5) Hematocrit 35.9 % (39.0-53.0) Mean Corpuscular Volume 96 fL (79-100) Mean Corpuscular Hemoglobin 31 pg (25-35) Mean Corpuscular Hemoglobin Concent 33 g/dL (31-37) Red Cell Distribution Width 15.3 % (11.5-14.5) Platelet Count 105 x10^3/uL (140-400) Sodium Level 144 mmol/L (136-145) Potassium Level 4.4 mmol/L (3.5-5.1) Chloride Level 108 mmol/L (98-107) Carbon Dioxide Level 26 mmol/L (21-32) Anion Gap 10 (6-14) Blood Urea Nitrogen 44 mg/dL (8-26) Creatinine 2.3 mg/dL (0.7-1.3) Estimated GFR (Cockcroft-Gault) 28.3 BUN/Creatinine Ratio 19 (6-20) Glucose Level 129 mg/dL (70-99) Hemoglobin A1c 5.8 % (4.8-5.6) Calcium Level 8.5 mg/dL (8.5-10.1) Total Bilirubin 0.6 mg/dL (0.2-1.0) Aspartate Amino Transf (AST/SGOT) 35 U/L (15-37) Alanine Aminotransferase (ALT/SGPT) 42 U/L (16-63) Alkaline Phosphatase 120 U/L (46-116) Total Protein 6.2 g/dL (6.4-8.2) Albumin 2.6 g/dL (3.4-5.0) Albumin/Globulin Ratio 0.7 (1.0-1.7) Triglycerides Level 60 mg/dL (0-150) Cholesterol Level 130 mg/dL (0-200) LDL Cholesterol, Calculated 55 mg/dL (0-100) VLDL Cholesterol, Calculated 12 mg/dL (0-40) Non-HDL Cholesterol Calculated 67 mg/dL (0-129) HDL Cholesterol 63 mg/dL (40-60) Cholesterol/HDL Ratio 2.0 Thyroid Stimulating Hormone (TSH) 3.105 uIU/mL (0.358-3.740) Test 08/25/20 07:30 08/25/20 11:54 08/25/20 16:53 08/25/20 20:48 Glucose (Fingerstick) 130 mg/dL (70-99) 184 mg/dL (70-99) 85 mg/dL (70-99) 199 mg/dL (70-99) Test 08/26/20 07:04 08/26/20 07:28 White Blood Count 4.4 x10^3/uL (4.0-11.0) Red Blood Count 3.96 x10^6/uL (4.30-5.70) Hemoglobin 12.3 g/dL (13.0-17.5) Hematocrit 37.5 % (39.0-53.0) Mean Corpuscular Volume 95 fL (79-100) Mean Corpuscular Hemoglobin 31 pg (25-35) Mean Corpuscular Hemoglobin Concent 33 g/dL (31-37) Red Cell Distribution Width 15.2 % (11.5-14.5) Platelet Count 102 x10^3/uL (140-400) Sodium Level 139 mmol/L (136-145) Potassium Level 3.7 mmol/L (3.5-5.1) Chloride Level 103 mmol/L (98-107) Carbon Dioxide Level 28 mmol/L (21-32) Anion Gap 8 (6-14) Blood Urea Nitrogen 52 mg/dL (8-26) Creatinine 2.4 mg/dL (0.7-1.3) Estimated GFR (Cockcroft-Gault) 27.0 BUN/Creatinine Ratio 22 (6-20) Glucose Level 109 mg/dL (70-99) Calcium Level 9.0 mg/dL (8.5-10.1) Total Bilirubin 0.5 mg/dL (0.2-1.0) Aspartate Amino Transf (AST/SGOT) 30 U/L (15-37) Alanine Aminotransferase (ALT/SGPT) 39 U/L (16-63) Alkaline Phosphatase 118 U/L (46-116) Total Protein 6.4 g/dL (6.4-8.2) Albumin 2.8 g/dL (3.4-5.0) Albumin/Globulin Ratio 0.8 (1.0-1.7) Glucose (Fingerstick) 109 mg/dL (70-99) ECHOCARDIOGRAM Echocardiogram <Conclusion> This is a technically difficult study due to poor image quality. Definity contrast was used to enhance image quality. The left ventricle is normal size. There is mild concentric left ventricular hypertrophy. Regional wall motion cannot be determined due to poor image quality secondary to the patients body habitus. The left ventricular systolic function appears normal and the estimated ejection fraction is 55-60%. Unable to determine diastolic function. The estimated pulmonary artery pressure is 37 mmHg. DATE: 03/02/14 8291 ASSESSMENT/PLAN Assessment/Plan 1. Acute on chronic probable diastolic CHF; improved with IV diuresis 2. Accelerated hypertension; now controlled 3. Diabetes, II 4. MIREYA on CKD 5. Cognitive impairment secondary to head injury 6. H/o cirrhosis, anasarca 7. Hypothyroidism Recommendations Obtain prior cardiac records from [facility] Hold further diuresis with ^ Cr Continue to hold ARB, avoid nephrotoxins 2000cc FR. 2Gm Na diet Outpatient echo is none recently FAVIO SIMMONS MD 08/26/20 2011: CARDIAC CONSULT ASSESSMENT/PLAN Assessment/Plan Patient seen and examined. Agree with PATTERN AND CHAIN MAKER's assessment and plan. Ac on chr diast HF better compensated with diuresis BP better controlled Plan outpatient echo and ischemic evaluation either with primary dock coordinator or with our office Thank you for your consultation NIKITA VARELA APRN Aug 26, 2020 08:30 FAVIO SIMMONS MD Aug 26, 2020 20:11
[2020-08-26] MEDS: FUROSEMIDE 40 MG/4 ML VIAL IVP SCH ×2 (08:34→16:51)
[2020-08-26] MEDS: LINAGLIPTIN 5 MG TABLET PO SCH (08:35)
[2020-08-26] MEDS: ASPIRIN CHEWABLE 81 MG TABLET. PO SCH (08:35)
[2020-08-26] MEDS: PANTOPRAZOLE 40 MG TABLET. PO SCH (08:35)
[2020-08-26] MEDS: TAMSULOSIN 0.4 MG CAP.ER.24H. PO SCH (08:36)
[2020-08-26] MEDS: buPROPion XL 150 MG TAB.ER.24H PO SCH (08:36)
[2020-08-26] MEDS: GABAPENTIN 100 MG CAPSULE. PO SCH ×3 (08:36→21:03)
[2020-08-26] MEDS: MINOCYCLINE 50 MG CAPSULE PO SCH (08:37)
[2020-08-26] MEDS: INSULIN LISPRO 300 UNITS/3 ML VIAL. SQ SCH ×3 (08:43→16:49)
[2020-08-26] MEDS: HYDROcodone/APAP 5/325MG 1 TAB TABLET PO PRN ×2 (09:58→21:04)
[2020-08-26 10:47] VITALS: BP 141/73
[2020-08-26] MEDS ORDERED: POTASSIUM CHLORIDE 20 MEQ TABLET.ER. PO ONE (14:00)
[2020-08-26 14:39] VITALS: BP 145/71
--- NOTE | 2020-08-26 16:28 | RAD ---
3 views the right knee without comparison for right knee prosthesis with severe pain and difficult walking. FINDINGS: There is no fracture, dislocation, or acute osseous abnormality identified. There has been a total knee arthroplasty. There is significant narrowing of the patellofemoral joint space. Medial lateral joint compartments are maintained. No periprosthetic lucencies. Bulky vascular calcifications. No suprapatellar joint effusion. IMPRESSION: 1. Postsurgical and degenerative changes of the right knee. No acute osseous abnormality. Electronically signed by: Pancho Archibald MD (08/26/2020 4:25 PM) [id number]
--- NOTE | 2020-08-26 17:21 | NUR ---
Wound/Ostomy Care Wound Type/Assessment: Pt has open blister to LLE. Cleansed wound and dressed with gonzalo, xeroform and foam dressing Treatment Recommendations/Plan: Continue dressing changes of xeroform and foam every 2-3 days. Education provided: PU prevention, WC POC Offloading surface/device: na Recommended Referrals/Tests: none Discharge Recommendations for dressings: Continue with xeroform and foam every 3 days, WC will follow up on 08/31
[2020-08-26 19:00] VITALS: BP 148/68
--- NOTE | 2020-08-26 19:14 | PN ---
DATE: 08/26/2020 SUBJECTIVE: The patient is resting, slightly propped up in bed, in no apparent respiratory distress. On questioning him, he said that he had a shower today. He managed to walk with a walker to the door and back. However, his main complaint is pain in his right knee joint. His back pain is much less today and we did x-ray of his right foot, which basically showed a normal alignment, no fractures, mild first metatarsophalangeal degenerative disk joint disease, diffuse foot soft tissue swelling, plantar calcaneal spurs, vascular calcification, mild ankle degenerative changes. PHYSICAL EXAMINATION: GENERAL: When I examined him this afternoon, he looked well and was clearly in no apparent respiratory distress. There is no pallor, jaundice, cyanosis or thyromegaly. No jugular venous distention, but generalized anasarca. VITAL SIGNS: Her heart rate was 51, blood pressure was 141/73, temperature 97.6, respiratory rate was 20, and oxygen saturation was 98%. HEAD, EYES, EARS, NOSE AND THROAT: Showed normocephalic, atraumatic. NECK: Supple. HEART: Showed normal first and second heart sounds. No gallop, rub or murmur. CHEST: Clear to auscultation. No crepitation or rhonchi. ABDOMEN: Distended, soft, nontender. NEUROLOGIC: He is awake, alert, responding appropriately. All cranial nerves are intact. He moves extremities without difficulty. His intake over the last 24 hours was 1070, output was 1300. LABORATORY DATA: His lab work this morning showed a white cell count of 4400, hemoglobin 12, hematocrit 37, MCV 95, and platelet count of 102,000. His chemistry showed a serum sodium of 139, potassium 3.7, chloride 103, bicarbonate 28, anion gap of 8, BUN 52, creatinine 2.4, estimated GFR was 27 mL per minute, his glucose was 109, calcium was 9. Total bilirubin, AST, ALT were normal. Alkaline phosphatase is slightly elevated. Total protein 6.4, albumin was 2.8. Urinalysis showed moderate amount of protein and glucose in the urine, trace of blood and negative leukocyte esterase and no bacteria. ASSESSMENT: 1. This is a 70-year-old male patient who was admitted with generalized anasarca. His chest x-ray showed cardiomegaly and cephalization of pulmonary vessels. 2. [id number]-[id number] kidney injury. Baseline creatinine is 1.92, in fact his creatinine is trending up and today it was 2.4, as he has received multiple doses of IV Lasix. 3. Type 2 diabetes mellitus, seems to be reasonably controlled. 4. Hypertension, seems to be well controlled. 5. 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 6. He also carries a diagnosis of bullous pemphigoid. Has some few lesions of his skin including left anterior aspect of the left leg. PLAN: To continue to hold losartan and he did receive 80 mg of IV Lasix this morning. We did not give him any Lasix in the afternoon. I will arrange for him to have x-ray of his right knee, as it seems that is his biggest limiting factor with his ability to move, looking for any loosening or infection. SHILPI TAYLOR MD DR: OWEN/juan JOB#: [id number] / [id number]
[2020-08-26] MEDS: ATORVASTATIN CALCIUM 20 MG TABLET PO SCH (21:03)
[2020-08-26] MEDS: INSULIN GLARGINE SYRINGE. SQ SCH (21:05)
[2020-08-26 22:52] VITALS: BP 151/61
--- NOTE | 2020-08-27 02:03 | NUR ---
Pt requested pain medications at approx. 2100. Lortab given per orders. Pt expressed hope to d/c home soon. Pt reports up walking more frequently, tolerating fair. Decreased swelling BLE noted.
[2020-08-27] MEDS: LEVOTHYROXINE 88 MCG TABLET PO SCH (05:09)
[2020-08-27] MEDS: HYDROcodone/APAP 5/325MG 1 TAB TABLET PO PRN ×2 (05:09→16:41)
[2020-08-27 06:22] VITALS: BP 135/54
[2020-08-27 07:16] LABS: C REACTIVE PROTEIN 13.7 mg/L (0-3.3); CALCIUM 8.4 mg/dL (8.5-10.1); CREATININE 2.5 mg/dL (0.7-1.3); GFR 25.7; POTASSIUM 4.1 mmol/L (3.5-5.1)
[2020-08-27] MEDS: CARVEDILOL 12.5 MG TABLET PO SCH ×2 (08:00→16:40)
[2020-08-27] MEDS: buPROPion XL 150 MG TAB.ER.24H PO SCH (08:42)
[2020-08-27] MEDS: TAMSULOSIN 0.4 MG CAP.ER.24H. PO SCH (08:42)
[2020-08-27] MEDS: GABAPENTIN 100 MG CAPSULE. PO SCH ×3 (08:42→20:42)
[2020-08-27] MEDS: LINAGLIPTIN 5 MG TABLET PO SCH (08:43)
[2020-08-27] MEDS: FUROSEMIDE 40 MG/4 ML VIAL IVP SCH ×2 (08:43→14:56)
[2020-08-27] MEDS: PANTOPRAZOLE 40 MG TABLET. PO SCH (08:43)
[2020-08-27] MEDS: ASPIRIN CHEWABLE 81 MG TABLET. PO SCH (08:43)
[2020-08-27] MEDS: MINOCYCLINE 50 MG CAPSULE PO SCH (08:44)
[2020-08-27] MEDS: NYSTATIN TOPICAL POWDER 15GM BOTTLE. TP SCH ×2 (08:44→20:45)
[2020-08-27] MEDS: INSULIN LISPRO 300 UNITS/3 ML VIAL. SQ SCH ×3 (08:54→16:43)
[2020-08-27 11:09] VITALS: BP 125/88
[2020-08-27 14:47] VITALS: BP 144/63
[2020-08-27 14:52] VITALS: BP 144/63
--- NOTE | 2020-08-27 15:45 | PDOC ---
DATE OF SERVICE: DOS: DATE: 08/27/20 TIME: 15:43 SUBJECTIVE: Patient seen and examined OBJECTIVE: Problems: Problems Medical Problems: (1) Acute CHF Status: Acute (2) Anasarca Status: Acute (3) CKD (chronic kidney disease) Status: Acute (4) Congestive heart failure Status: Chronic (5) Leg swelling Status: Acute (6) Lumbar back pain Status: Acute Vital Signs/I&O: Vital Signs Date Time Temp Pulse Resp B/P (MAP) Pulse Ox O2 Delivery O2 Flow Rate FiO2 08/27/20 14:52 144/63 (90) 08/27/20 14:47 97.9 66 16 95 Room Air 08/24/20 23:12 5.0 I & O 08/26/20 08/26/20 08/27/20 15:00 23:00 07:00 Intake Total 240 ml 480 ml 400 ml Output Total 700 ml 45 ml 915 ml Balance -460 ml 435 ml -515 ml Labs: Laboratory Tests Test 08/26/20 16:24 08/26/20 20:42 08/27/20 06:38 08/27/20 07:40 Glucose (Fingerstick) 159 mg/dL (70-99) H 124 mg/dL (70-99) H 116 mg/dL (70-99) H Sodium Level 139 mmol/L (136-145) Potassium Level 4.1 mmol/L (3.5-5.1) Chloride Level 104 mmol/L (98-107) Carbon Dioxide Level 27 mmol/L (21-32) Anion Gap 8 (6-14) Blood Urea Nitrogen 57 mg/dL (8-26) H Creatinine 2.5 mg/dL (0.7-1.3) H Estimated GFR (Cockcroft-Gault) 25.7 Glucose Level 115 mg/dL (70-99) H Calcium Level 8.4 mg/dL (8.5-10.1) L C-Reactive Protein 13.7 mg/L (0-3.3) H Test 08/27/20 11:35 Glucose (Fingerstick) 215 mg/dL (70-99) H Physical Exam: Chest. Mild bilaterally decreased breath sounds CV. Regular rate and rhythm with a 1/6 systolic murmur Abdomen. Soft to auscultation and percussion ASSESSMENT: 1. Acute on chronic probable diastolic CHF; improving. Continue present medications. Outpatient echo. 2. Accelerated hypertension; now controlled 3. Diabetes, II 4. MIREYA on CKD. Monitoring lab. 5. Cognitive impairment secondary to head injury 6. H/o cirrhosis, anasarca 7. Hypothyroidism Justification of Admission: Justification of Admission: Justification of Admission Dx: Yes JESSI VELEZ MD Aug 27, 2020 15:45
[2020-08-27 19:26] VITALS: BP 124/63
--- NOTE | 2020-08-27 20:22 | PN ---
DATE: 08/27/2020 SUBJECTIVE: The patient is resting, slightly propped up in bed, no apparent distress. He continued to complain of pain in his right hip joint, particularly in the medial aspect; however, his x-ray of his right knee showed no evidence of fracture, dislocation or acute osseous abnormality identified. There has been a total knee arthroplasty. There is significant narrowing of the patellofemoral joint space medial, lateral joint. Compartments are maintained. No periprosthetic lucencies. PHYSICAL EXAMINATION: GENERAL: When I examined him today, he looked well and was clearly in no apparent respiratory distress. No pallor, jaundice, cyanosis or thyromegaly. No jugular venous distention. Actually generalized anasarca is much improved. VITAL SIGNS: His heart rate was 66, blood pressure was 144/63, temperature 97.9, respiratory rate was 16, and oxygen saturation was 95% on room air. HEAD, EYES, EARS, NOSE AND THROAT: Showed normocephalic, atraumatic. NECK: Supple. HEART: Showed normal first and second heart sounds. No gallop, rub or murmur. CHEST: Clear to auscultation. No crepitation or rhonchi. ABDOMEN: Distended, soft, nontender. NEUROLOGIC: He was grossly intact. His intake over the last 24 hours was 720, output was 2350. LABORATORY DATA: His lab work from yesterday showed a white cell count 4400, hemoglobin 12, hematocrit 37, MCV 95, and platelet count of 102,000. His chemistry showed a serum sodium of 139, potassium 4.1, chloride 104, bicarbonate 27, anion gap of 8, BUN 57, creatinine was 2.5, estimated GFR was 26 mL per minute, his glucose 115, calcium was 8.4. C-reactive protein was 13.7. ASSESSMENT: 1. This is a 70-year-old male patient who was admitted with generalized anasarca. His chest x-ray showed cardiomegaly and cephalization of the pulmonary vessels. 2. Acute on chronic kidney injury. Baseline creatinine was 1.92. Unfortunately, his creatinine is trending upward and today it was 2.5 after he received multiple doses of IV Lasix. 3. Type 2 diabetes mellitus, seems to be reasonably controlled. 4. Hypertension, seems to be well controlled. 5. 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 6. He also carries a diagnosis of bullous pemphigoid and some few lesions of his skin including the anterior aspect of left leg. PLAN: To continue holding losartan. I will also hold Lasix for now and repeat his labs tomorrow morning. SHILPI TAYLOR MD DR: OWEN/juan JOB#: [id number] / [id number]
[2020-08-27] MEDS: ATORVASTATIN CALCIUM 20 MG TABLET PO SCH (20:42)
[2020-08-27] MEDS: INSULIN GLARGINE SYRINGE. SQ SCH (20:45)
[2020-08-27 23:09] VITALS: BP 128/64
--- NOTE | 2020-08-28 05:03 | NUR ---
Pt stated heating pad decreased pain, rated pain 2/10 at beginning of shift. Pt understands D/C planned for Saturday with home health.
[2020-08-28] MEDS: LEVOTHYROXINE 88 MCG TABLET PO SCH (05:32)
[2020-08-28] MEDS: HYDROcodone/APAP 5/325MG 1 TAB TABLET PO PRN ×3 (05:33→17:12)
[2020-08-28 05:56] VITALS: BP 138/61
[2020-08-28 07:35] LABS: CALCIUM 8.7 mg/dL (8.5-10.1); CREATININE 2.5 mg/dL (0.7-1.3); GFR 25.7; POTASSIUM 4.2 mmol/L (3.5-5.1)
[2020-08-28] MEDS: CARVEDILOL 12.5 MG TABLET PO SCH ×3 (08:00→17:12)
[2020-08-28] MEDS: MINOCYCLINE 50 MG CAPSULE PO SCH (09:00)
[2020-08-28] MEDS: NYSTATIN TOPICAL POWDER 15GM BOTTLE. TP SCH ×2 (09:00→20:18)
[2020-08-28] MEDS: PANTOPRAZOLE 40 MG TABLET. PO SCH (09:10)
[2020-08-28] MEDS: buPROPion XL 150 MG TAB.ER.24H PO SCH (09:10)
[2020-08-28] MEDS: TAMSULOSIN 0.4 MG CAP.ER.24H. PO SCH (09:10)
[2020-08-28] MEDS: GABAPENTIN 100 MG CAPSULE. PO SCH ×3 (09:10→20:18)
[2020-08-28] MEDS: ASPIRIN CHEWABLE 81 MG TABLET. PO SCH (09:11)
[2020-08-28] MEDS: LINAGLIPTIN 5 MG TABLET PO SCH (09:11)
[2020-08-28] MEDS: INSULIN LISPRO 300 UNITS/3 ML VIAL. SQ SCH ×3 (09:14→17:13)
[2020-08-28 11:00] VITALS: BP_SYST 135; BP_SYST 172; BP_DIAS 66; BP_DIAS 79
--- NOTE | 2020-08-28 14:27 | PDOC ---
DATE OF SERVICE: DOS: DATE: 08/28/20 TIME: 14:25 SUBJECTIVE: Patient seen and examined OBJECTIVE: Problems: Problems Medical Problems: (1) Acute CHF Status: Acute (2) Anasarca Status: Acute (3) CKD (chronic kidney disease) Status: Acute (4) Congestive heart failure Status: Chronic (5) Leg swelling Status: Acute (6) Lumbar back pain Status: Acute Vital Signs/I&O: Vital Signs Date Time Temp Pulse Resp B/P (MAP) Pulse Ox O2 Delivery O2 Flow Rate FiO2 08/28/20 11:18 76 172/79 08/28/20 11:00 98.1 24 96 Room Air 08/24/20 23:12 5.0 I & O 08/27/20 08/27/20 08/28/20 15:00 23:00 07:00 Intake Total 300 ml 350 ml Output Total 2075 ml 1150 ml Balance -1775 ml -800 ml Labs: Laboratory Tests Test 08/27/20 16:38 08/27/20 20:07 08/28/20 06:19 08/28/20 07:24 Glucose (Fingerstick) 130 mg/dL (70-99) H 154 mg/dL (70-99) H 120 mg/dL (70-99) H Sodium Level 139 mmol/L (136-145) Potassium Level 4.2 mmol/L (3.5-5.1) Chloride Level 105 mmol/L (98-107) Carbon Dioxide Level 26 mmol/L (21-32) Anion Gap 8 (6-14) Blood Urea Nitrogen 61 mg/dL (8-26) H Creatinine 2.5 mg/dL (0.7-1.3) H Estimated GFR (Cockcroft-Gault) 25.7 Glucose Level 105 mg/dL (70-99) H Calcium Level 8.7 mg/dL (8.5-10.1) Test 08/28/20 11:27 Glucose (Fingerstick) 264 mg/dL (70-99) H Physical Exam: Chest. Decreased breath sounds. CV. Regular rate and rhythm Abd. Soft ASSESSMENT: 1. Acute on chronic probable diastolic CHF; improving. Continue present medications. Outpatient echo. 2. Accelerated hypertension; controlled 3. Diabetes, II 4. MIREYA on CKD. Monitoring lab. 5. Cognitive impairment secondary to head injury 6. H/o cirrhosis, anasarca 7. Hypothyroidism Justification of Admission: Justification of Admission: Justification of Admission Dx: Yes JESSI VELEZ MD Aug 28, 2020 14:27
[2020-08-28 14:57] VITALS: BP 115/55
--- NOTE | 2020-08-28 18:36 | PN ---
DATE: 08/28/2020 SUBJECTIVE: The patient is resting, slightly propped up in bed, no apparent distress. On questioning him, he is feeling generally much improved. He was able to walk all the way to the shower and back. His knee is not as painful as it was yesterday and has no pain in his left heel. His creatinine remained stable at 2.5. It has not worsened as we held his Lasix. When I examined him today, he looked well and was clearly in no apparent respiratory distress. No pallor, jaundice, cyanosis or thyromegaly. No jugular venous distention. In fact, most of his generalized anasarca has largely resolved. OBJECTIVE: VITAL SIGNS: His heart rate was 76, blood pressure was 172/79, temperature was 98.1, respiratory rate was 24, and oxygen saturation was 96% on room air. HEAD, EYES, EARS, NOSE AND THROAT: Normocephalic, atraumatic. NECK: Supple. HEART: Showed normal first and second heart sounds. No gallop or murmur. CHEST: Showed central trachea, equal bilateral expansion, air entry, vesicular ___. No crepitation or rhonchi. ABDOMEN: Distended, soft, nontender. NEUROLOGIC: He was grossly intact. His intake was 1120, output was 1660. LABORATORY DATA: His most recent white cell count was 4400, hemoglobin 12, hematocrit 37, MCV 95, and platelet count of 102,000. Serum sodium was 139, potassium 4.2, chloride 105, bicarbonate 26, anion gap of 8, BUN 62, creatinine 2.5, estimated GFR was 25 mL per minute, his glucose 105, calcium was 8.3. ASSESSMENT: 1. Acute on chronic diastolic congestive heart failure, improving. 2. Accelerated hypertension, much improved. 3. Type 2 diabetes mellitus. 4. Acute on chronic kidney injury. We held his Lasix today and creatinine remained stable at 2.5. 5. Generalized anasarca, resolved. 6. Hypothyroidism. I will repeat his labs tomorrow morning and probably discharge him home with home health as he declined to go to a rehab center. SHILPI TAYLOR MD DR: OWEN/juan JOB#: [id number] / [id number]
[2020-08-28 19:31] VITALS: BP 150/75
[2020-08-28] MEDS: INSULIN GLARGINE SYRINGE. SQ SCH (20:17)
[2020-08-28] MEDS: ATORVASTATIN CALCIUM 20 MG TABLET PO SCH (20:18)
[2020-08-28] MEDS: LACTOBACILLUS RHAMNOSUS GG 1 CAPSULE. PO SCH (20:18)
[2020-08-28 22:32] VITALS: BP 152/75
[2020-08-29] MEDS: HYDROcodone/APAP 5/325MG 1 TAB TABLET PO PRN ×2 (01:17→09:44)
[2020-08-29 05:25] VITALS: BP 138/56
[2020-08-29] MEDS: LEVOTHYROXINE 88 MCG TABLET PO SCH (05:41)
[2020-08-29 06:28] LABS: CALCIUM 8.8 mg/dL (8.5-10.1); CREATININE 2.2 mg/dL (0.7-1.3); GFR 29.8; POTASSIUM 3.8 mmol/L (3.5-5.1)
--- NOTE | 2020-08-29 07:56 | PDOC ---
CARDIO Progress Notes Date & Time Date of Service DATE: 08/29/20 TIME: 07:55 Time of Evaluation 07:55 Subjective Notes No chest pain, palpitations, dizziness, diaphoresis, or SOA. Vitals Vitals Vital Signs Date Time Temp Pulse Resp B/P (MAP) Pulse Ox O2 Delivery O2 Flow Rate FiO2 08/29/20 05:25 97.7 58 20 138/56 (83) 96 Room Air 08/24/20 23:12 5.0 Weight Weight [ ] Input and Output I.O. Intake and Output 08/29/20 07:00 Intake Total 1340 ml Output Total 1153 ml Balance 187 ml Intake Oral 1340 ml Output Urine Total 1152 ml Stool Total 1 ml Laboratory Labs Laboratory Tests Test 08/27/20 11:35 08/27/20 16:38 08/27/20 20:07 08/28/20 06:19 Glucose (Fingerstick) 215 mg/dL (70-99) 130 mg/dL (70-99) 154 mg/dL (70-99) Sodium Level 139 mmol/L (136-145) Potassium Level 4.2 mmol/L (3.5-5.1) Chloride Level 105 mmol/L (98-107) Carbon Dioxide Level 26 mmol/L (21-32) Anion Gap 8 (6-14) Blood Urea Nitrogen 61 mg/dL (8-26) Creatinine 2.5 mg/dL (0.7-1.3) Estimated GFR (Cockcroft-Gault) 25.7 Glucose Level 105 mg/dL (70-99) Calcium Level 8.7 mg/dL (8.5-10.1) Test 08/28/20 07:24 08/28/20 11:27 08/28/20 17:15 08/28/20 19:52 Glucose (Fingerstick) 120 mg/dL (70-99) 264 mg/dL (70-99) 185 mg/dL (70-99) 157 mg/dL (70-99) Test 08/29/20 06:02 08/29/20 07:25 Sodium Level 139 mmol/L (136-145) Potassium Level 3.8 mmol/L (3.5-5.1) Chloride Level 104 mmol/L (98-107) Carbon Dioxide Level 27 mmol/L (21-32) Anion Gap 8 (6-14) Blood Urea Nitrogen 55 mg/dL (8-26) Creatinine 2.2 mg/dL (0.7-1.3) Estimated GFR (Cockcroft-Gault) 29.8 Glucose Level 115 mg/dL (70-99) Calcium Level 8.8 mg/dL (8.5-10.1) Glucose (Fingerstick) 130 mg/dL (70-99) Physical Exams HEENT: Neck Supple W Full Motion Chest: Symmetric Lungs: Clear to Auscultation, Other (diminished ) Heart: RRR Abdomen: Soft N/T, Other (obese ) Extremities: Other (1+ bilateral LE edema ) Neurology: alert, oriented, follow commands, other (forgetful) Assessment Assessment 1. Acute on chronic probable diastolic CHF; improved with diuresis. Lasix held with ^ Cr 2. Accelerated hypertension; now controlled 3. Diabetes, II 4. MIREYA on CKD; better. Cr 2.2 5. Cognitive impairment secondary to head injury 6. Hypothyroidism 7. Anasarca; improved Recommendations No records obtained from [facility] Discussed care with [id number], Dorene. No known h/o liver disease. Follow with [facility], Kisha Ca. She reports normal stress and echo in December of this year Low-dose oral Lasix daily upon discharge Monitoring of labs on an outpatient basis 2000cc FR. 2Gm Na diet Follow up with Kisha Ca APRN in 2-3 weeks NIKITA VARELA APRN Aug 29, 2020 07:56
[2020-08-29] MEDS: buPROPion XL 150 MG TAB.ER.24H PO SCH (08:02)
[2020-08-29] MEDS: ASPIRIN CHEWABLE 81 MG TABLET. PO SCH (08:02)
[2020-08-29] MEDS: PANTOPRAZOLE 40 MG TABLET. PO SCH (08:03)
[2020-08-29] MEDS: LINAGLIPTIN 5 MG TABLET PO SCH (08:03)
[2020-08-29] MEDS: LACTOBACILLUS RHAMNOSUS GG 1 CAPSULE. PO SCH (08:03)
[2020-08-29] MEDS: CARVEDILOL 12.5 MG TABLET PO SCH (08:03)
[2020-08-29] MEDS: TAMSULOSIN 0.4 MG CAP.ER.24H. PO SCH (08:03)
[2020-08-29] MEDS: GABAPENTIN 100 MG CAPSULE. PO SCH ×2 (08:03→14:04)
[2020-08-29] MEDS: MINOCYCLINE 50 MG CAPSULE PO SCH (08:04)
[2020-08-29] MEDS: INSULIN LISPRO 300 UNITS/3 ML VIAL. SQ SCH ×2 (08:05→12:00)
[2020-08-29] MEDS: NYSTATIN TOPICAL POWDER 15GM BOTTLE. TP SCH (08:31)
[2020-08-29 11:35] VITALS: BP 160/76
--- NOTE | 2020-08-29 14:21 | NUR ---
NURSING NOTE DISCHARGE PT DISCHARGED HOME VIA WHEELCHAIR PICKED UP BY DAUGHTER IN LAW. PT GIVEN WRITTEN AND VERBAL DISCHARGE INSTRUCTIONS. PT ENCOURAGED TO FOLLOW UP WITH PCP IN 7-10 DAYS OR SOONER IF NEEDED. PT TO FOLLOW UP WITH [facility]. NO COMPLICATIONS. NO SCRIPTS GIVEN. LANEY JAIMES.
--- NOTE | 2020-08-29 14:27 | DS ---
DATE OF DISCHARGE: HOSPITAL COURSE: The patient is a 70-year-old male patient who was admitted with generalized anasarca and likely acute on chronic diastolic congestive heart failure, has also accelerated hypertension, type 2 diabetes mellitus, gastroesophageal reflux disease, and history of cognitive impairment due to closed head injury, who was treated with IV Lasix and he was consistently negative balance; however, his kidney function has worsened and his creatinine has risen from baseline of 2 to up to 2.5 and we held his Lasix yesterday. He remained stable. Denied any chest pain. His leg swelling has largely subsided. Knee pain has improved and has been up and about walking with a walker and a decision was made to discharge him home with home health to continue the process of rehabilitation there. PHYSICAL EXAMINATION: GENERAL: When I saw him this afternoon, he was resting slightly propped up in bed, in no apparent respiratory distress. No pallor, jaundice, cyanosis, or thyromegaly. No jugular venous distention or limb edema. VITAL SIGNS: His heart rate was 54, blood pressure was 160/76, temperature was 98, respiratory rate 22, and oxygen saturation was 96% on room air. HEAD, EYES, EARS, NOSE AND THROAT: Showed normocephalic, atraumatic. NECK: Supple. HEART: Showed normal first and second heart sounds. No gallop, rub or murmur. CHEST: Clear to auscultation. No crepitation or rhonchi. ABDOMEN: Distended, soft, nontender. No guarding or rigidity. No organomegaly. All hernial orifices intact. Bowel sounds normal. NEUROLOGIC: He was awake, alert, responding appropriately. All cranial nerves intact. EXTREMITIES: He moves extremities without difficulty, ambulates with a walker. LABORATORY DATA: His lab work this morning showed a serum sodium of 139, potassium 3.8, chloride 104, bicarbonate 27, anion gap of 8, BUN 55, creatinine 2.2, estimated GFR was 29 mL per minute, his glucose 115, calcium was 8.8. His white cell count was 4400, hemoglobin 12, hematocrit 37, MCV 95, and platelet count of 102,000. Urinalysis was essentially unremarkable. DISCHARGE MEDICATIONS: He was discharged home to continue on amlodipine 5 mg once a day, aspirin 81 mg once a day, Wellbutrin 300 mg once a day, carvedilol 12.5 mg twice a day, cholecalciferol, vitamin D3 50,000 units once a week, cyclobenzaprine 10 mg 3 times a day, Uloric 80 mg once a day, furosemide 20 mg daily, gabapentin 100 mg 3 times a day, hydrocodone/APAP 10/325 one tablet every 6 hours. He is on Lantus insulin 80 units subcutaneously daily. He is on Humalog 20 units 3 times a day with meals. He is on Humalog 12 units 3 times a day with meals. He is on levothyroxine sodium 100 mcg once a day, linagliptin for Tradjenta 5 mg once a day, losartan potassium 50 mg once a day, magnesium oxide 400 mg once a day, metoclopramide 10 mg before meals, minocycline 100 mg daily, moxifloxacin for Vigamox 1 drop to the right eye 3 times a day. He is on nepafenac 1 drop to the right eye daily. He is on omeprazole 20 mg once a day, oxycodone/APAP 5/325 one tablet every 6 hours, prednisolone acetate 1 drop to the right eye 3 times a day, pregabalin for Lyrica 75 mg once a day, Crestor 10 mg at bedtime, spironolactone 25 mg daily and tamsulosin for Flomax 0.4 mg daily. FINAL DISCHARGE DIAGNOSES: 1. Acute on chronic diastolic congestive heart failure. 2. Accelerated hypertension, much improved. 3. Type 2 diabetes mellitus, somewhat reasonably controlled. 4. Acute on chronic kidney injury, improved. His creatinine is down to 2.2. 5. Generalized anasarca, resolved. 6. Hypothyroidism. Plan is to discharge home with home health. SHILPI TAYLOR MD DR: OWEN/juan JOB#: [id number] / [id number]
[2020-08-30] MEDS ORDERED: CHOLECALCIFEROL (VITAMIN D3) 50,000 UNIT CAPSULE PO SCH (09:00)
== END 2020-08-29 14:23 | disposition home health service (06) | DRG 291 ==
LOC: ER 09:11 → 1 SOUTH 12:43
PROVIDERS: ADMIT Hospitalist; ATTEND Hospitalist
DX: I13.0 Hypertensive heart and chronic kidney disease with heart failure and stage 1 through stage 4 chronic kidney disease, or unspecified chronic kidney disease (principal); E43 Unspecified severe protein-calorie malnutrition; I50.33 Acute on chronic diastolic (congestive) heart failure; N17.9 Acute kidney failure, unspecified; Z68.42 Body mass index [BMI] 45.0-49.9, adult; L12.0 Bullous pemphigoid; N18.4 Chronic kidney disease, stage 4 (severe); E11.22 Type 2 diabetes mellitus with diabetic chronic kidney disease; E03.9 Hypothyroidism, unspecified; E66.01 Morbid (severe) obesity due to excess calories; K21.9 Gastro-esophageal reflux disease without esophagitis; K74.60 Unspecified cirrhosis of liver; N20.0 Calculus of kidney; Z96.653 Presence of artificial knee joint, bilateral; M47.816 Spondylosis without myelopathy or radiculopathy, lumbar region; F32.9 Major depressive disorder, single episode, unspecified; G47.33 Obstructive sleep apnea (adult) (pediatric); M10.9 Gout, unspecified; M19.90 Unspecified osteoarthritis, unspecified site; R23.4 Changes in skin texture; G31.84 Mild cognitive impairment of uncertain or unknown etiology; Z98.84 Bariatric surgery status; Z87.828 Personal history of other (healed) physical injury and trauma
CPT/HCPCS: 36415; 71045; 72131; 72192; 73562; 73630; 80048; 80053; 80061; 81001; 82947; 83036; 83735; 83880; 84100; 84443; 84484; 85025; 85027; 86140; 93005; 93970; J1815; J1940; J2270; 97110; 97116; 97530; 99285-25

== ENCOUNTER → 2021-04-19 | Outpatient (CLI) | payer OTHER, MEDICAID ==
[~2021-04-19] MED LIST changes: +AMLO-186 PO; +ASPI81TA59 PO; +GABA-585 PO; +HYDR-2155 PO; +INSU100C SQ; +LINA5TAB4 PO; +MINO100T2 PO; +ROSUVASTATIN CA10 MG PO; +TAMS0.4C97 PO
--- NOTE | 2021-04-19 12:16 | RAD ---
US ABDOMEN COMPLETE History: Reason: ANEMIA, CKD STAGE 3, THROMBOCYTOPENIA / Spl. Instructions: / History: Comparison: None. Technique: Sonographic examination of the abdomen was performed and multiple grayscale and color Dopp ler static images were obtained. Findings: Degraded evaluation due to patient body habitus and overlying bowel gas. Degraded evaluation of the liver due to patient body habitus. Heterogeneous appearance of the liver. The liver measures 15.2 cm. Prior cholecystectomy. Common bile duct measures 6 mm in diameter. Visualized pancreas not well seen due to bowel gas. The right kidney measures 9.9 x 5.1 x 5.4 cm. No hydronephrosis. Degraded evaluation due to patient b cosme habitus. The left kidney measures 10.5 x 5.2 x 5.2 cm. No hydronephrosis. Degraded evaluation. The spleen not well seen due to patient body habitus. Normal caliber IVC. Aorta not well seen due to overlying bowel gas. IMPRESSION: 1. Degraded evaluation, as described. 2. Nonspecific heterogeneous appearance of the liver. Recommend correlation with liver function test s. Electronically signed by: Crow Barron DO (04/19/2021 12:13 PM) [facility]
== END ==
LOC: US 08:56
PROVIDERS: ATTEND Family Medicine
DX: D69.6 Thrombocytopenia, unspecified (principal); N18.32 Chronic kidney disease, stage 3b; D63.1 Anemia in chronic kidney disease
CPT/HCPCS: 76700

== ENCOUNTER 2021-09-24 19:20 | Inpatient (IN) | payer OTHER, MEDICAID ==
[~2021-09-24] VITALS: Ht 180.3 cm; Wt 136.1 kg
[~2021-09-24 19:20] MED LIST changes: -CYCL-331 PO; +CYCL10TA19 PO
--- NOTE | 2021-09-24 20:00 | PHYS DOC ---
Past History Past Medical History: Diabetes, GERD, Hypertension, Kidney Infection, Other Additional Past Medical Histor: "RARE SKIN DISEASE" Past Surgical History: Other Additional Past Surgical Histo: GASTRIC BYPASS; BILAT KNEE REPLACEMENT Smoking: Non-smoker Alcohol Use: None Drug Use: None General Adult EDM: Chief Complaint: SKIN PROBLEM HPI: HPI: ".. I got this skin problem... ". The blisters on my leg has boken open.. it hurting more down there... " Patient is a 71 year old male who presents with above hx and complaints of vionous stasis ulcer on left leg. Patient denies he has had lower leg ulcers and venous stasis changes for a number years. Only recently has developed increase edema, drainage and swelling. Patient normally follows with Dr. Dominguez. Has significant past medical history of diabetes, morbid obesity, chronic kidney disease stage IV, chronic cirrhosis of the liver, get g astroesophageal reflux, pemphigoid skin lesions, closed head injury, memory deficits, and deconditioning. Patient reports he is non-smoker nondrinker. Patient has used Lasix in the past to control his leg edema. No recent travel. No specific ill contacts. No history of fevers. No history of change in meds. Review of Systems: Review of Systems: Constitutional: Denies fever or chills Eyes: Denies change in visual acuity HENT: Denies nasal congestion or sore throat Respiratory: Denies cough or shortness of breath Cardiovascular: Denies chest pain or edema GI: Denies abdominal pain, nausea, vomiting, bloody stools or diarrhea : Denies dysuria Musculoskeletal: Complains of bilateral leg pain with increased edema. Integument: Complains of bilateral leg ulcers more on the left. Neurologic: Denies headache, focal weakness or sensory changes Endocrine: Denies polyuria or polydipsia Lymphatic: Denies swollen glands Psychiatric: Denies depression or anxiety Family History: Family History: Noncontributory to presentation Current Medications: Current Meds: See nursing for home meds Allergies: Allergies: Allergies Coded Allergies Type Severity Reaction Last Updated Verified No Known Drug Allergies 08/23/20 No Physical Exam: PE: Constitutional: Moderate acute distress, non-toxic appearance. [] HENT: Normocephalic, atraumatic, bilateral external ears normal, oropharynx moist, no oral exudates, nose normal. [] Eyes: PERRLA, EOMI, conjunctiva normal, no discharge. [] Neck: Normal range of motion, no tenderness, supple, no stridor. More than 17 inches circumference Cardiovascular: Bradycardia heart rate regular rhythm, no murmur, PMI to the left Lungs & Thorax: Bilateral breath sounds equal apex with some basilar crackles on auscultation [] Abdomen: Bowel sounds normal, soft, no tenderness, no masses, no pulsatile masses. [] Morbid obese. Old surgery scars. Skin: Warm, dry, no erythema, venous stasis changes and left lower leg venous stasis ulcer/cellulitis Back: No tenderness, no CVA tenderness. [] Extremities: Lower leg tenderness, no cyanosis, no clubbing, moves still legs on request but limited range of motion, bilateral leg edema. [] Bilateral venous stasis. Left lower leg venous stasis ulcer/cellulitis. Bilateral knee scars. No definite findings of cording noted. Neurologic: Alert and oriented X 3, normal motor function, normal sensory function, no focal deficits noted. [] Psychologic: Affect anxious, judgement normal, mood normal. [] Does appear to have a poor memory. Current Patient Data: Vital Signs: Vital Signs Date Time Temp Pulse Resp B/P (MAP) Pulse Ox O2 Delivery O2 Flow Rate FiO2 09/24/21 19:52 97.9 67 20 135/72 (93) 98 Room Air EKG: EKG: My interpretation EKG shows a sinus rhythm at 66 bpm. Slightly irregular rhythm. Left axis deviation. Does have an interventricular block. But no findings acute STEMI of contralateral changes. Time of EKG is 2312 hrs. [] Radiology/Procedures: Radiology/Procedures: [[address] [address] IMAGING REPORT Signed PATIENT: SUNDEEP HOLAMN ACCOUNT: [id number] : 1950 LOCATION: ER AGE: 71 SEX: M EXAM STATUS: REG ER ORD. PHYSICIAN: SYBIL LOCK MD REASON: pain, edema PROCEDURE: PORTABLE CHEST 1V Exam: Chest one view INDICATION: Pain, edema TECHNIQUE: Frontal view which Comparisons: 08/23/2020 FINDINGS: The cardiomediastinal silhouette and pulmonary vessels are within normal limits. The lung and pleural spaces are clear. IMPRESSION: No acute cardiopulmonary process. Electronically signed by: Rohini Langley MD (09/24/2021 10:32 PM) [facility] DICTATED AND SIGNED BY: ROHINI LANGLEY MD DATE: 09/24/212231 CC: SYBIL LOCK MD; CEDRICK DOMINGUEZ ~MTH0 0 ][address] [address] IMAGING REPORT Signed PATIENT: SUNDEEP HOLMAN ACCOUNT: [id number] : 1950 LOCATION: ER AGE: 71 SEX: M EXAM STATUS: REG ER ORD. PHYSICIAN: SYBIL LOCK MD REASON: pain, edema PROCEDURE: TIBIA FIBULA LEFT Exam: Left tibia and fibula 2 views INDICATION: Pain, edema TECHNIQUE: Frontal and lateral views the left tibia and fibula Comparisons: None FINDINGS: Left knee arthroplasty changes are noted. Bone mineralization is normal. No acute or healed fractures. Soft tissues are unremarkable. IMPRESSION: No acute osseous abnormality. Electronically signed by: Rohini Langley MD (09/24/2021 10:32 PM) [facility] DICTATED AND SIGNED BY: ROHINI LANGLEY MD DATE: 09/24/212231 CC: SYBIL LOCK MD; CEDRICK DOMINGUEZ ~MTH0 0 Heart Score: C/O Chest Pain: N/A HEART Score for Chest Pain: HEART Score for Chest Pain Response (Comments) Value History Slighlty/Non-Suspicious 0 ECG Nonspecific Repolarizatio 1 Age > 65 2 Risk Factors 1 or 2 Risk Factors 1 Total 4 Risk Factors: Risk Factors: DM, Current or recent (<one month) smoker, HTN, HLP, family history of CAD, obesity. Risk Scores: Score 0 - 3: 2.5% MACE over next 6 weeks - Discharge Home Score 4 - 6: 20.3% MACE over next 6 weeks - Admit for Clinical Observation Score 7 - 10: 72.7% MACE over next 6 weeks - Early Invasive Strategies Course & Med Decision Making: Course & Med Decision Making Pertinent Labs and Imaging studies reviewed. (See chart for details) Discussed presentation, testing and treatment plan with . Admit to his service. I will cover with antibiotics tonight. Obtain Doppler and ultrasound studies in the morning. Impression: 1. Venous stasis ulcers 2. Cellulitis 3. Thrombocytopenia 90 4. Mild anemia HGB 11 5. Renal insufficiency BUN 47 creatinine 1.9 6. Diabetes-glucose 129 7. Elevated D-dimer 0.80 [] Dragon Disclaimer: Dragon Disclaimer: This electronic medical record was generated, in whole or in part, using a voice recognition dictation system. Departure Departure: Referrals: CEDRICK DOMINGUEZ (PCP) Toby Disclaimer This chart was dictated in whole or in part using Voice Recognition software in a busy, high-work load, and often noisy Emergency Department environment. It may contain unintended and wholly unrecognized errors or omissions. Dragon Disclaimer This chart was dictated in whole or in part using Voice Recognition software in a busy, high-work load, and often noisy Emergency Department environment. It may contain unintended and wholly unrecognized errors or omissions. SYBIL LOCK MD Sep 24, 2021 20:00
[2021-09-24] MEDS ORDERED: ASPIRIN CHEWABLE 81 MG TABLET. PO ONE (22:00)
[2021-09-24] MEDS ORDERED: IV RINGERS SOLUTION,LACTATED 1,000 ML IV SCH (22:00)
--- NOTE | 2021-09-24 22:34 | RAD ---
Exam: Left tibia and fibula 2 views INDICATION: Pain, edema TECHNIQUE: Frontal and lateral views the left tibia and fibula Comparisons: None FINDINGS: Left knee arthroplasty changes are noted. Bone mineralization is normal. No acute or healed fractures . Soft tissues are unremarkable. IMPRESSION: No acute osseous abnormality. Electronically signed by: Rohini Montoya MD (09/24/2021 10:32 PM) MIA
--- NOTE | 2021-09-24 22:35 | RAD ---
Exam: Chest one view INDICATION: Pain, edema TECHNIQUE: Frontal view which Comparisons: 08/23/2020 FINDINGS: The cardiomediastinal silhouette and pulmonary vessels are within normal limits. The lung and pleural spaces are clear. IMPRESSION: No acute cardiopulmonary process. Electronically signed by: Rohini Montoya MD (09/24/2021 10:32 PM) MIA
[2021-09-24 23:12] LABS: BASO % 0 % (0-3); EOS # 0.2 x10^3/uL (0.0-0.7); EOS % 3 % (0-3); HEMATOCRIT 35.2 % (39.0-53.0); HEMOGLOBIN 11.7 g/dL (13.0-17.5); LYMPH # 1.1 x10^3/uL (1.0-4.8); LYMPH % 21 % (24-48); MEAN CORPUSCULAR HEMOGLOBIN 33 pg (25-35); MEAN CORPUSCULAR HGB CONC 33 g/dL (31-37); MEAN CORPUSCULAR VOLUME 99 fL (79-100); MONO # 0.6 x10^3/uL (0.0-1.1); MONO % 12 % (0-9); NEUT # 3.3 x10^3uL (1.8-7.7); NEUT % 63 % (31-73); PLATELET COUNT 90 x10^3/uL (140-400); RED BLOOD COUNT 3.54 x10^6/uL (4.30-5.70); WHITE BLOOD COUNT 5.2 x10^3/uL (4.0-11.0)
[2021-09-24] MEDS ORDERED: MORPHINE SULFATE 10 MG/ML SYRINGE. ONE (23:53)
[2021-09-25] MEDS ORDERED: VANCOMYCIN 1 GM in IV NORMAL SALINE 250ML 250 ML IV ONE
[2021-09-25] MEDS ORDERED: VANCOMYCIN PER PHARMACY MC PRN
[2021-09-25] MEDS ORDERED: VANCOMYCIN 2 GM in IV NORMAL SALINE 500ML 500 ML IV ONE (00:30)
[2021-09-25] MEDS ORDERED: MORPHINE SULFATE 10 MG/ML SYRINGE. SQ ONE (00:30)
[2021-09-25] MEDS: CLINDAMYCIN 600MG PREMIX 50 ML IV SCH ×4 (00:51→22:17)
[2021-09-25 00:53] LABS: CALCIUM 9.1 mg/dL (8.5-10.1); CREATININE 1.9 mg/dL (0.7-1.3); GFR 35.2; POTASSIUM 4.5 mmol/L (3.5-5.1)
[2021-09-25 01:05] LABS: ALBUMIN 2.9 g/dL (3.4-5.0); DIRECT BILIRUBIN 0.2 mg/dL (0.0-0.2); MAGNESIUM 1.9 mg/dL (1.8-2.4); TOTAL BILIRUBIN 0.4 mg/dL (0.2-1.0)
[2021-09-25 01:49] LABS: BACTERIA,URINE 0 /HPF (0-FEW); BILIRUBIN,URINE NEG (NEG); CLARITY,URINE CLEAR; COLOR,URINE YELLOW; GLUCOSE,URINE NEG (NEG); NITRITE,URINE NEG (NEG); RBC,URINE 0 /HPF (0-2); UROBILINOGEN,URINE 0.2 mg/dL (0.2 mg/dL)
[2021-09-25] MEDS ORDERED: IV NORMAL SALINE 500ML 500 ML ONE ×2 (01:59→02:05)
[2021-09-25] MEDS ORDERED: VANCOMYCIN 1 GM VIAL. ONE ×2 (01:59→02:05)
[2021-09-25] MEDS ORDERED: ACETAMINOPHEN 325 MG TABLET PO PRN (02:00)
[2021-09-25] MEDS ORDERED: ONDANSETRON PF 4 MG/2 ML VIAL. IVP PRN (02:00)
[2021-09-25 02:07] LABS: BARBITURATES NEG (NEG); BENZODIAZEPINES NEG (NEG); CANNABINOIDS NEG (NEG); COCAINE NEG (NEG); METHADONE NEG (NEG); OPIATES NEG (NEG); PHENCYCLIDINE NEG (NEG)
[2021-09-25] MEDS ORDERED: ENOXAPARIN ** NOTE DOSE ** SYRINGE SQ ONE (02:15)
[2021-09-25 02:19] LABS: AMPHETAMINE/METHAMPHETAMINE NEG (NEG)
[2021-09-25 02:50] VITALS: BP 156/69
[2021-09-25] MEDS ORDERED: C.DIFF MED SCREEN BY RX. MC ONE (05:00)
[2021-09-25] MEDS ORDERED: IPRATRPIUM/ALBUTEROL 0.5/2.5MG 3 ML NEBU. ONE (05:07)
[2021-09-25 05:20] VITALS: BP 136/69
[2021-09-25] MEDS: IPRATRPIUM/ALBUTEROL 0.5/2.5MG 3 ML NEBU. NEB SCH ×4 (05:33→19:16)
[2021-09-25] MEDS ORDERED: CLINDAMYCIN 600MG PREMIX 50 ML IV SCH (06:00)
[2021-09-25] MEDS: LINAGLIPTIN 5 MG TABLET PO SCH (07:56)
[2021-09-25] MEDS: GABAPENTIN 100 MG CAPSULE. PO SCH ×3 (07:56→21:14)
[2021-09-25] MEDS: ASPIRIN CHEWABLE 81 MG TABLET. PO SCH (07:56)
[2021-09-25] MEDS: TAMSULOSIN 0.4 MG CAP.ER.24H. PO SCH (07:56)
[2021-09-25] MEDS: FUROSEMIDE 20 MG TABLET PO SCH (07:57)
[2021-09-25] MEDS: LOSARTAN 50 MG TABLET. PO SCH (07:57)
[2021-09-25] MEDS: buPROPion XL 300 MG TAB.ER.24H. PO SCH ×2 (07:58→10:00)
[2021-09-25] MEDS: LEVOTHYROXINE 100 MCG TABLET PO SCH (08:00)
[2021-09-25] MEDS ORDERED: CHOLECALCIFEROL (VITAMIN D3) 50,000 UNIT CAPSULE PO SCH (09:00)
[2021-09-25] MEDS ORDERED: VANCOMYCIN 1 GM in IV NORMAL SALINE 250ML 250 ML IV SCH (09:00)
[2021-09-25] MEDS: INSULIN LISPRO 300 UNITS/3 ML VIAL. SQ SCH ×3 (09:59→17:33)
[2021-09-25 11:04] VITALS: BP 119/64
[2021-09-25 15:48] VITALS: BP 116/60
--- NOTE | 2021-09-25 17:09 | RAD ---
Examination: Bilateral venous Doppler Indication: Leg swelling Technique: Ultrasound evaluation of the bilateral lower extremities was performed from the groin to t he upper calf with bella scale, spectral and color doppler evaluation. Comparison: None Findings: There is normal venous flow and compressibility of bilateral common femoral veins, femoral veins, popliteal veins, and visualized proximal calf veins. Impression: No evidence for deep vein thrombosis of bilateral lower extremities from the level of the calf veins to the groins. Electronically signed by: Mitchel Leon MD (09/25/2021 5:07 PM) [id number]
--- NOTE | 2021-09-25 17:19 | HP ---
DATE OF SERVICE: 09/25/2021 ADMIT DATE: 09/25/2021 HISTORY OF PRESENT ILLNESS: The patient is a 71-year-old male patient who presented to the Emergency Room with a complaint of a skin problem. He stated that he has blisters on his leg that have broke opened. It is painful and was actively bleeding. According to his apapymgg-so-gwu, he was diagnosed with bullous pemphigoid by Dr. Miller and has had treatment for that, but she is retired and he has not seen her for a while. He has had multiple blisters on his torso, but now, they are on his lower extremity. He also stated that he developed increased edema, drainage, and swelling. He normally follows with Dr. Fall. He was evaluated in the Emergency Room, has had extensive evaluation including lab work and imaging studies. His CBC showed he has normochromic normocytic anemia. His D-dimer was slightly elevated and his chemistry showed that he has chronic kidney disease and hypoalbuminemia. His urinalysis was essentially unremarkable. His toxic screen was negative. His chest x-ray showed that the cardiomediastinal silhouette and pulmonary vessels are within normal limits. The lungs and pleural spaces are clear, and the x-ray of the tibia and fibula showed left knee arthropathy. Arthroplasty changes are noted. Bone mineralization is normal. No acute or healed fracture. Soft tissues are unremarkable. The patient was admitted with a diagnosis of cellulitis and venous stasis ulcer, thrombocytopenia, and mild anemia. He was noted to have type 2 diabetes and elevated D-dimer. PAST MEDICAL HISTORY: Significant for type 2 diabetes mellitus, hypertension, chronic back pain, traumatic brain injury. He was diagnosed before with bullous pemphigoid and he is known to have chronic kidney disease and hypothyroidism. PAST SURGICAL HISTORY: Significant for bilateral total knee arthroplasty. Has gastric bypass surgery. He underwent also bilateral cataract extraction, esophagogastroduodenoscopy, and colonoscopy. ALLERGIES: He has no known drug allergies. MEDICATIONS: We are still working to get his medication list from his primary care physician and his [id number]. FAMILY HISTORY: Has 3 brothers and 3 sisters. Has only 1 brother and 1 sister still alive. His father due to a motor vehicle accident and his mother in her 80s. SOCIAL HISTORY: He is , has 2 sons and 2 daughters, 1 of them was killed. He quit smoking 3 years ago, quit alcohol 3 years ago. He used to be a heavy smoker and drinker. 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 REVIEW OF SYSTEMS: The patient has bilateral cataract extraction, but denied any glaucoma or macular degeneration. Denied any earache, tinnitus, or sensory deafness. Denied any nosebleed, stuffy nose, or postnasal drip. Denied any sore throat, sore tongue, toothache, hoarseness of voice, or difficulty swallowing. Denied any nausea, vomiting, diarrhea, or constipation. Denied any hematemesis, melena, or hematochezia. Denied any dysuria, frequency, or hematuria. Denied any chest pain, shortness of breath, orthopnea, paroxysmal nocturnal dyspnea. PHYSICAL EXAMINATION: GENERAL: On arrival to the Emergency Room, he looked well and was clearly in no apparent respiratory distress. He was somewhat pale, but not jaundiced, cyanosed. No lymphadenopathy, no thyromegaly, no jugular venous distention. No limb edema. VITAL SIGNS: His heart rate was 67, blood pressure was 135/72, temperature was 97.9, respiratory rate was 20, and oxygen saturation was 98%. HEAD, EYES, EARS, NOSE, AND THROAT: Normocephalic, atraumatic. NECK: Supple. HEART: Normal first and second heart sounds. No gallop, rub, or murmur. CHEST: Clear to auscultation. No crepitation or rhonchi. ABDOMEN: Distended, soft, nontender. NEUROLOGIC: He was awake, alert. Does have memory problems, but all his cranial nerves are intact. He moves extremities without difficulty, although he is mostly wheelchair bound. He can walk only for short distances. LABORATORY DATA: On arrival showed a white cell count 5200, hemoglobin 11, hematocrit 35, MCV 99, and platelet count of 90,000. His chemistry showed a serum sodium 138, potassium 4.5, chloride 104, bicarbonate 27, anion gap of 7, BUN 47, creatinine 1.9. Estimated GFR was 35 mL per minute. His glucose 129, calcium 9.1, magnesium was 1.9. Total bilirubin, AST, ALT, alkaline phosphatase were normal. His beta natriuretic peptide was 147. Total protein 6, albumin 2.9. Lipase was 52. His prothrombin time, INR, and aPTT were normal. D-dimer was 0.8 mg per liter. Urinalysis was essentially unremarkable except for a small amount of protein and his toxic screen was negative. His chest x-ray showed no acute cardiopulmonary process and x-ray of the tibia and fibula showed left knee arthroplasty changes that are noted. Bone mineralization was normal. No acute or healed fracture. Soft tissues are unremarkable. ASSESSMENT: The patient was admitted with probably ruptured bullous pemphigoid on the outer aspect of left leg. Apparently, he was seen years ago by Dr. Miller, the edge bander operator, who did the biopsy, which confirmed the diagnosis. He has probably some surrounding cellulitis. PLAN: Continue with IV vancomycin as well as clindamycin and continue with all his other medication. We will obviously monitor his lab work closely and his response to antibiotic therapy. I would also consult the wound care team to assist with management. LUDIVINA DR: Connie TID: [id number]
--- NOTE | 2021-09-25 17:37 | RAD ---
Bilateral lower extremity arterial duplex study 09/25/2021 CLINICAL HISTORY: Bilateral leg pain and swelling. Wound involving the left calf. TECHNIQUE: Using a combination real-time ultrasound imaging and color-flow and pulse Doppler imaging techniques, duplex evaluation of major arterial structures of both lower extremities was performed. M ultiple images were obtained. FINDINGS: Mild to moderate atheromatous/atherosclerotic plaque formation is seen scattered throughout the major arterial structures of both lower extremities. Predominantly triphasic/biphasic arterial w aveforms are seen throughout the major arterial structures of both lower extremities. Significant sasha vation of the peak systolic velocity within the distal right posterior tibial artery is seen (170 cm/ s). The peak systolic velocity within the right popliteal artery is 93.3 cm/s. The peak systolic [place] within the right dorsalis pedis arteries as 31.2 cm/s. This velocity elevation when compared to the real-time images suggests underlying stenosis of greater than 50 percent. The peak systolic veloc ity within the left dorsalis pedis artery is elevated measuring 187.4 cm/s. The peak systolic velocit y within the left anterior tibial artery is 28 cm/s. This velocity elevation when compared to the ashly l-time images suggest a stenosis of greater than 75 percent. No additional area of stenosis is seen b y ultrasound. No area of occlusion is noted. IMPRESSION: Mild to moderate atheromatous/atherosclerotic plaque formation seen involving major arter ial structures of both lower extremities. A greater than 50 percent stenosis is seen involving the di stal right posterior tibial artery. A greater than 75 percent stenosis is seen involving the left ariadna salis pedis artery. Electronically signed by: Art Valenzuela MD (09/25/2021 5:35 PM) [id number]
[2021-09-25 19:15] VITALS: BP 121/63
[2021-09-25] MEDS: CYCLOBENZAPRINE 10 MG TABLET. PO PRN (21:14)
[2021-09-25] MEDS: ATORVASTATIN CALCIUM 20 MG TABLET PO SCH (21:14)
[2021-09-25] MEDS: HYDROcodone/APAP 5/325MG 1 TAB TABLET PO PRN (21:14)
[2021-09-25] MEDS: LACTOBACILLUS RHAMNOSUS GG 1 CAPSULE. PO SCH (21:14)
[2021-09-25] MEDS: INSULIN GLARGINE SYRINGE. SQ SCH (21:15)
[2021-09-25 22:45] VITALS: BP 122/66
[2021-09-26] MEDS ORDERED: VANCOMYCIN 2 GM in IV NORMAL SALINE 500ML 500 ML IV SCH (00:30)
--- NOTE | 2021-09-26 03:55 | EKG ---
[address] [address] Test Date: 2021-09-24 Test Time: 23:12:51 Pat Name: SUNDEEP HOLMAN Department: Room: 115 A Gender: M Risk Assessment Analyst: RACHEL : 1950 Requested By: SYBIL LOCK Order Number: [id number] Reading MD: Stuart Rendon MD Measurements Intervals [place] Rate: 66 P: ID: QRS: -53 QRSD: 130 T: 66 QT: 420 QTc: 442 Interpretive Statements SR LAFB NON-SPECIFIC ST/T CHANGES Electronically Signed On 09-26-2021 9:45:04 WINDING MACHINE OPERATOR by Stuart Rendon MD
[2021-09-26] MEDS: CLINDAMYCIN 600MG PREMIX 50 ML IV SCH ×3 (05:42→21:45)
[2021-09-26] MEDS: LEVOTHYROXINE 100 MCG TABLET PO SCH (05:42)
[2021-09-26 05:55] VITALS: BP 124/67
[2021-09-26 06:09] LABS: BASO % 0 % (0-3); EOS # 0.2 x10^3/uL (0.0-0.7); EOS % 4 % (0-3); LYMPH # 0.9 x10^3/uL (1.0-4.8); LYMPH % 25 % (24-48); MEAN CORPUSCULAR HEMOGLOBIN 33 pg (25-35); MEAN CORPUSCULAR HGB CONC 33 g/dL (31-37); MEAN CORPUSCULAR VOLUME 100 fL (79-100); MONO # 0.5 x10^3/uL (0.0-1.1); MONO % 14 % (0-9); NEUT # 2.1 x10^3uL (1.8-7.7); NEUT % 57 % (31-73); PLATELET COUNT 79 x10^3/uL (140-400); RED BLOOD COUNT 3.02 x10^6/uL (4.30-5.70); RED CELL DISTRIBUTION WIDTH 14.3 % (11.5-14.5); WHITE BLOOD COUNT 3.7 x10^3/uL (4.0-11.0)
[2021-09-26 06:15] LABS: CALCIUM 8.4 mg/dL (8.5-10.1); GFR 33.2; POTASSIUM 4.7 mmol/L (3.5-5.1)
[2021-09-26] MEDS: INSULIN LISPRO 300 UNITS/3 ML VIAL. SQ SCH ×3 (08:00→17:00)
[2021-09-26] MEDS: buPROPion XL 300 MG TAB.ER.24H. PO SCH (09:00)
[2021-09-26] MEDS: FUROSEMIDE 20 MG TABLET PO SCH (09:59)
[2021-09-26] MEDS: TAMSULOSIN 0.4 MG CAP.ER.24H. PO SCH (10:00)
[2021-09-26] MEDS: LACTOBACILLUS RHAMNOSUS GG 1 CAPSULE. PO SCH ×2 (10:00→20:47)
[2021-09-26] MEDS: GABAPENTIN 100 MG CAPSULE. PO SCH ×3 (10:00→20:47)
[2021-09-26] MEDS: ASPIRIN CHEWABLE 81 MG TABLET. PO SCH (10:00)
[2021-09-26] MEDS: LOSARTAN 50 MG TABLET. PO SCH (10:00)
[2021-09-26] MEDS: LINAGLIPTIN 5 MG TABLET PO SCH (10:00)
[2021-09-26 10:20] VITALS: BP 138/68
[2021-09-26 15:01] VITALS: BP 121/66
[2021-09-26 19:47] VITALS: BP 121/67
[2021-09-26] MEDS: CYCLOBENZAPRINE 10 MG TABLET. PO PRN (20:47)
[2021-09-26] MEDS: ATORVASTATIN CALCIUM 20 MG TABLET PO SCH (20:47)
[2021-09-26] MEDS: INSULIN GLARGINE SYRINGE. SQ SCH (20:48)
--- NOTE | 2021-09-26 22:37 | PN ---
DATE: 09/26/2021 SUBJECTIVE: The patient is resting, slightly propped up in bed, in no apparent distress. On questioning him, he denied any complaint. He continued to have wounds on his left lateral aspect of the left leg for which he was seen by the wound care. He continued to be on IV antibiotic in the form of vancomycin and clindamycin. PHYSICAL EXAMINATION: GENERAL: When I examined him, he looked somewhat pale, but no jaundice, cyanosis or thyromegaly. No jugular venous distention. Mild bilateral lower limb edema. VITAL SIGNS: His heart rate was 60, blood pressure was 121/66, temperature was 98.3, respiratory rate 22, and oxygen saturation was 96%. HEAD, EYES, EARS, NOSE, AND THROAT: Normocephalic, atraumatic. NECK: Supple. HEART: Showed normal first and second heart sounds, no gallop or murmur. CHEST: Clear to auscultation, no crepitation or rhonchi. ABDOMEN: Distended, soft, nontender. NEUROLOGIC: He is sleepy, but arousable. All cranial nerves intact. He moves extremities without difficulty. His intake over the last 24 hours was 1450. No output was recorded. LABORATORY DATA: This morning showed a white cell count of 3700, hemoglobin 10, hematocrit 30, MCV 100, and platelet count of 79,000. His chemistry showed a serum sodium to be 136, potassium 4.7, chloride 106, bicarbonate 24, anion gap of 6, BUN 45, creatinine 2, estimated GFR was 33 mL per minute. His glucose 110, calcium was 8.4. His urinalysis essentially unremarkable. Toxic screen was negative. Apparently, his urine and blood culture are still pending at the time of this dictation. ASSESSMENT: Chronic left lower extremity wound that with a blister that ruptured and bled according to the patient. The patient carries a diagnosis of bullous pemphigoid diagnosed by Dr. Miller, a supervisor shipfitters at [facility]. He said that he has multiple lesions that comes and goes, but this has been resistant. The location of the lesion, it looks like necrobiosis diabeticorum lipoidica, however, I think the patient will probably need to be seen by a supervisor shipfitters and biopsy this area again to rule out the possibility of underlying malignancy, perhaps melanoma or squamous cell carcinoma. His kidney function has slightly worsened and he is on furosemide, losartan, and vancomycin. PLAN: My plan is to discontinue all these medications. Continue with IV clindamycin and monitor his kidney function closely. His blood sugars also seemed to be within acceptable range. ARGELIA DR: Connie TID: [id number]
[2021-09-27] MEDS: CLINDAMYCIN 600MG PREMIX 50 ML IV SCH ×3 (05:44→20:53)
[2021-09-27] MEDS: LEVOTHYROXINE 100 MCG TABLET PO SCH (05:44)
[2021-09-27 05:56] VITALS: BP 108/64
[2021-09-27 06:22] LABS: HEMATOCRIT 29.5 % (39.0-53.0); HEMOGLOBIN 9.9 g/dL (13.0-17.5); RED BLOOD COUNT 2.97 x10^6/uL (4.30-5.70); RED CELL DISTRIBUTION WIDTH 14.2 % (11.5-14.5); WHITE BLOOD COUNT 3.4 x10^3/uL (4.0-11.0)
[2021-09-27 06:35] LABS: ALBUMIN 2.5 g/dL (3.4-5.0); ALBUMIN/GLOBULIN RATIO 0.8 (1.0-1.7); CALCIUM 8.7 mg/dL (8.5-10.1); GFR 33.2; POTASSIUM 4.7 mmol/L (3.5-5.1); TOTAL BILIRUBIN 0.5 mg/dL (0.2-1.0); TOTAL PROTEIN 5.6 g/dL (6.4-8.2)
[2021-09-27] MEDS: GABAPENTIN 100 MG CAPSULE. PO SCH ×3 (08:14→20:00)
[2021-09-27] MEDS: buPROPion XL 300 MG TAB.ER.24H. PO SCH (08:14)
[2021-09-27] MEDS: LINAGLIPTIN 5 MG TABLET PO SCH (08:14)
[2021-09-27] MEDS: ASPIRIN CHEWABLE 81 MG TABLET. PO SCH (08:14)
[2021-09-27] MEDS: TAMSULOSIN 0.4 MG CAP.ER.24H. PO SCH (08:14)
[2021-09-27] MEDS: LACTOBACILLUS RHAMNOSUS GG 1 CAPSULE. PO SCH ×2 (08:17→19:59)
[2021-09-27] MEDS: INSULIN LISPRO 300 UNITS/3 ML VIAL. SQ SCH ×3 (08:47→17:08)
[2021-09-27 10:40] VITALS: BP 122/73
--- NOTE | 2021-09-27 15:19 | PN ---
DATE: 09/27/2021 ATTENDING PHYSICIAN: Dr. Rodriguez. SUBJECTIVE: No new complaints. OBJECTIVE FINDINGS: VITAL SIGNS: Blood pressure this morning is 122/73. He is afebrile. Oxygen sats are 96% on room air. HEENT: Head is without trauma. Pupils are reactive. Oropharynx clear. NECK: Supple. LUNGS: Clear. CARDIOVASCULAR: Showed regular heart tones. ABDOMEN: Obese, protuberant. No organomegaly. Normoactive bowel sounds. EXTREMITIES: Showed 2+ edema. He has redness and localized erythema involving the anterior surface of the left solis. There is a central zone of eschar from necrotic tissue. No bullous disease identified. ASSESSMENT: 1. Cellulitis of left lower leg. 2. History of bullous disease. Statistically, it would be more common to have bullous disease of diabetes as opposed to supposedly biopsy-proven bullous pemphigoid. 3. Morbid obesity. 4. Type 2 diabetes. PLAN: 1. Continue intravenous vancomycin and clindamycin. 2. Diabetes, controlled. 3. Line of demarcation drawn. We will see if the infections improve with IV antibiotics. ENEDELIA DR: Dwayne TID: [id number] CC: CEDRICK TANG
[2021-09-27 15:25] VITALS: BP 130/65
[2021-09-27 19:34] VITALS: BP 130/68
[2021-09-27] MEDS: ATORVASTATIN CALCIUM 20 MG TABLET PO SCH (19:59)
[2021-09-27] MEDS: INSULIN GLARGINE SYRINGE. SQ SCH (20:53)
[2021-09-27 23:00] VITALS: BP 116/63
[2021-09-28] MEDS: CLINDAMYCIN 600MG PREMIX 50 ML IV SCH ×3 (04:58→21:11)
[2021-09-28] MEDS: LEVOTHYROXINE 100 MCG TABLET PO SCH (04:58)
[2021-09-28 05:13] VITALS: BP 138/68
[2021-09-28] MEDS: INSULIN LISPRO 300 UNITS/3 ML VIAL. SQ SCH ×3 (08:00→17:00)
[2021-09-28] MEDS: GABAPENTIN 100 MG CAPSULE. PO SCH ×3 (08:45→20:14)
[2021-09-28] MEDS: LINAGLIPTIN 5 MG TABLET PO SCH (08:45)
[2021-09-28] MEDS: LACTOBACILLUS RHAMNOSUS GG 1 CAPSULE. PO SCH ×2 (08:45→20:14)
[2021-09-28] MEDS: TAMSULOSIN 0.4 MG CAP.ER.24H. PO SCH (08:45)
[2021-09-28] MEDS: ASPIRIN CHEWABLE 81 MG TABLET. PO SCH (08:45)
[2021-09-28] MEDS: buPROPion XL 300 MG TAB.ER.24H. PO SCH (08:48)
[2021-09-28] MEDS ORDERED: VANCOMYCIN PER PHARMACY MC PRN (09:45)
[2021-09-28] MEDS: HYDROcodone/APAP 5/325MG 1 TAB TABLET PO PRN (09:46)
[2021-09-28] MEDS ORDERED: VANCOMYCIN 2 GM in IV NORMAL SALINE 500ML 500 ML IV SCH (10:30)
[2021-09-28 11:00] VITALS: BP 124/71
[2021-09-28 15:06] VITALS: BP 119/69
--- NOTE | 2021-09-28 15:25 | PN ---
DATE: 09/28/2021 ATTENDING PHYSICIANS: Dr. Rodriguez and Dr. Martinez. SUBJECTIVE: No new complaints. He is eating well. OBJECTIVE FINDINGS: VITAL SIGNS: Blood pressure this morning is 116/65 mmHg, pulse is 63 and regular. He is afebrile and oxygen saturation 97% on room air. HEENT: Head is without trauma. Pupils are reactive. Sclerae nonicteric. Oropharynx is clear. NECK: Supple, no bruits. LUNGS: Clear. CARDIOVASCULAR: Showed regular heart tones. No gallops. ABDOMEN: Soft. EXTREMITIES: Show no cyanosis. The edema is improved. The redness and erythema extending over the anterior portion of the left solis is improved and dissipating. There is still the central zone of eschar and necrotic skin, which is very superficial. This will slough off. ASSESSMENT: 1. Cellulitis of the left leg, most likely methicillin-resistant Staphylococcus aureus. 2. History of bullous pemphigoid. I do not believe he has active pemphigoid at this time. 3. Type 2 diabetes. 4. Morbid obesity. PLAN: 1. Continue vancomycin as ordered. 2. Diabetic diet. 3. Monitor sugars. 4. Tentative discharge plan for this weekend. YANELI/NANCY/MARCELLA DR: YANELI/juan TID: [id number] CC: CEDRICK TANG
[2021-09-28 19:00] VITALS: BP 148/72
[2021-09-28] MEDS: ATORVASTATIN CALCIUM 20 MG TABLET PO SCH (20:14)
[2021-09-28] MEDS: INSULIN GLARGINE SYRINGE. SQ SCH (21:10)
[2021-09-29] MEDS: CLINDAMYCIN 600MG PREMIX 50 ML IV SCH ×3 (05:10→21:37)
[2021-09-29] MEDS: LEVOTHYROXINE 100 MCG TABLET PO SCH (05:15)
[2021-09-29] MEDS: INSULIN LISPRO 300 UNITS/3 ML VIAL. SQ SCH ×3 (08:00→16:20)
[2021-09-29] MEDS: ASPIRIN CHEWABLE 81 MG TABLET. PO SCH (08:50)
[2021-09-29] MEDS: LACTOBACILLUS RHAMNOSUS GG 1 CAPSULE. PO SCH ×2 (08:50→20:38)
[2021-09-29] MEDS: GABAPENTIN 100 MG CAPSULE. PO SCH ×3 (08:51→20:38)
[2021-09-29] MEDS: LINAGLIPTIN 5 MG TABLET PO SCH (08:51)
[2021-09-29] MEDS: TAMSULOSIN 0.4 MG CAP.ER.24H. PO SCH (08:51)
[2021-09-29] MEDS: buPROPion XL 300 MG TAB.ER.24H. PO SCH (08:55)
[2021-09-29] MEDS: HYDROcodone/APAP 5/325MG 1 TAB TABLET PO PRN ×2 (09:04→20:39)
[2021-09-29 10:30] VITALS: BP 159/68
[2021-09-29] MEDS ORDERED: FUROSEMIDE 40 MG/4 ML VIAL IVP ONE (10:45)
[2021-09-29] MEDS ORDERED: VANCOMYCIN 1.5 GM in IV NORMAL SALINE 500ML 500 ML IV SCH (11:30)
[2021-09-29] MEDS: CYCLOBENZAPRINE 10 MG TABLET. PO PRN (14:35)
[2021-09-29 16:00] VITALS: BP 118/63
[2021-09-29 20:18] VITALS: BP 128/71
--- NOTE | 2021-09-29 20:34 | PN ---
DATE: 09/29/2021 ATTENDING PHYSICIAN: Dr. Martinez. SUBJECTIVE: Doing better. He has diuresed well. Swelling of both arms and legs are down significantly. OBJECTIVE FINDINGS: VITAL SIGNS: Blood pressure this morning is 148/72 mmHg, pulse is 61 and regular. He is afebrile. Oxygen saturation 99% on room air. HEENT: Head is without trauma. Pupils are reactive. Sclerae nonicteric. Oropharynx clear. NECK: Supple. LUNGS: Clear. CARDIOVASCULAR: Regular heart tones. ABDOMEN: Obese, protuberant. No organomegaly. EXTREMITIES: Showed diminished swelling of both the lower extremities. The redness and erythema around the left anterior solis is receding. The zone of eschar is same. ASSESSMENT: 1. A 71-year-old gentleman with cellulitis, left anterior lower extremity. 2. Type 2 diabetes. 3. History of bullous pemphigoid disease. This does not appear to be in exacerbation at this time. PLAN: 1. Continue antibiotics as ordered. 2. He has responded well to diuresis. Another dose of Lasix has been ordered. 3. Follow up chemistry. 4. Tentative discharge plans for tomorrow. BUTCH DR: YANELI/juan TID: [id number] CC: CEDRICK TANG
[2021-09-29] MEDS: ATORVASTATIN CALCIUM 20 MG TABLET PO SCH (20:38)
[2021-09-29] MEDS: INSULIN GLARGINE SYRINGE. SQ SCH (21:38)
[2021-09-30] MEDS: CLINDAMYCIN 600MG PREMIX 50 ML IV SCH (06:09)
[2021-09-30] MEDS: LEVOTHYROXINE 100 MCG TABLET PO SCH (06:09)
[2021-09-30] MEDS: HYDROcodone/APAP 5/325MG 1 TAB TABLET PO PRN (06:35)
[2021-09-30 06:36] VITALS: BP 131/71
[2021-09-30] MEDS: INSULIN LISPRO 300 UNITS/3 ML VIAL. SQ SCH (07:59)
[2021-09-30] MEDS: LINAGLIPTIN 5 MG TABLET PO SCH (08:02)
[2021-09-30] MEDS: LACTOBACILLUS RHAMNOSUS GG 1 CAPSULE. PO SCH (08:02)
[2021-09-30] MEDS: buPROPion XL 300 MG TAB.ER.24H. PO SCH (08:02)
[2021-09-30] MEDS: ASPIRIN CHEWABLE 81 MG TABLET. PO SCH (08:02)
[2021-09-30] MEDS: TAMSULOSIN 0.4 MG CAP.ER.24H. PO SCH (08:02)
[2021-09-30] MEDS: GABAPENTIN 100 MG CAPSULE. PO SCH (08:02)
[2021-09-30 09:16] LABS: CALCIUM 8.6 mg/dL (8.5-10.1); CREATININE 1.9 mg/dL (0.7-1.3); GFR 35.2; POTASSIUM 4.5 mmol/L (3.5-5.1)
--- NOTE | 2021-09-30 09:32 | DS ---
DATE OF DISCHARGE: 09/30/2021 ATTENDING PHYSICIAN: Dr. Rodriguez. FINAL DISCHARGE DIAGNOSES: 1. Cellulitis, left anterior solis. 2. Peripheral vascular disease. 3. Type 2 diabetes. 4. Morbid obesity. 5. History of bullous pemphigoid, it does not appear that he has active disease at this time. 6. Chronic kidney disease stage 4. 7. Known coronary artery disease. 8. Generalized debilitation. HISTORY AND PHYSICAL: The patient is a 71-year-old gentleman who is followed by both Cardiology and Nephrology services. He has diabetes, obesity, recent diagnosis of bullous pemphigoid. He has a nonhealing wound in the anterior surface of the left solis, this has been going on for many months now. It gets better and then the wound is opened and he has infection again. The wound is erythematous, red and it appears to be a Staphylococcus infection. He was admitted for intravenous antibiotics. PHYSICAL EXAMINATION: Please see the dictated note. PERTINENT LABORATORY AND X-RAY STUDIES: Admission weight was right around 300 pounds. His blood pressure was stable. His hemoglobin was 11.7 grams with a white count of 5200. Chemistry panel on admission showed a creatinine of 2.0 mg/dL, which is his baseline. Hemoglobin A1c was quite good at 5.8, potassium 4.7 mEq, and his sodium was 138 mEq. Transaminases were adequate and normal. Troponin new sensitivity was unremarkable. It was slightly at the borderline due to decreased renal clearance. TSH was normal. No microbiology data was available on admission. COURSE IN THE HOSPITAL: The patient was admitted. He received 6 full days of intravenous vancomycin with improvement. The dose is adjusted accordingly for his renal clearance. He responded well for diuresis and swelling came down. Sugars were fairly well controlled. By the sixth hospital day, the patient was doing better. He had no new complaints. He wanted to go home. His oxygen saturation on the day of discharge was 99% on room air. He was afebrile, pulse is 90 and regular, blood pressure 131/71. Therefore, at this time, I had a long discussion with his daughter and primary casting chipper. He remains a FULL CODE. I recommended 1 more week of antibiotics in the form of oral doxycycline 100 mg b.i.d. and Bactrim DS 1 b.i.d. In addition, I recommended Lasix 80 mg p.o. daily. I offered potassium, the daughter declined stating that he should not get any based on his pants closer recommendation. His other home meds include regular and scheduled Lantus insulin as scheduled, aspirin daily, BuSpar, vitamin D3, Flexeril p.r.n., hydrocodone p.r.n., Tradjenta, Synthroid, omeprazole, Crestor and Flomax dose is unchanged. For now, I have held the Neurontin and I have increased the Lasix dose to 80 mg p.o. daily. He has home care already along with all the necessities of durable medical equipment for staying at home, whether or not he is able to do this remains to be seen. He is going to call Dr. Tang for a followup visit in 1 week's time. I suggest chemistry panel at that time. The patient was then discharged from our hospital in stable condition with explicit drug and followup care. Total discharge time spent [address]: Dwayne TID: [id number] CC: CEDRICK TANG
== END 2021-09-30 09:55 | disposition home or self-care (01) | DRG 603 ==
LOC: ER 19:20 → 1 SOUTH 09-25 02:30
PROVIDERS: ADMIT Internal Medicine; ATTEND Internal Medicine
DX: L03.116 Cellulitis of left lower limb (principal); L12.0 Bullous pemphigoid; L97.909 Non-pressure chronic ulcer of unspecified part of unspecified lower leg with unspecified severity; N18.4 Chronic kidney disease, stage 4 (severe); E11.22 Type 2 diabetes mellitus with diabetic chronic kidney disease; G89.29 Other chronic pain; K21.9 Gastro-esophageal reflux disease without esophagitis; I12.9 Hypertensive chronic kidney disease with stage 1 through stage 4 chronic kidney disease, or unspecified chronic kidney disease; Z96.653 Presence of artificial knee joint, bilateral; D69.6 Thrombocytopenia, unspecified; D64.9 Anemia, unspecified; E03.9 Hypothyroidism, unspecified; I25.10 Atherosclerotic heart disease of native coronary artery without angina pectoris; E66.01 Morbid (severe) obesity due to excess calories; E11.51 Type 2 diabetes mellitus with diabetic peripheral angiopathy without gangrene; E88.09 Other disorders of plasma-protein metabolism, not elsewhere classified; I83.009 Varicose veins of unspecified lower extremity with ulcer of unspecified site; K74.60 Unspecified cirrhosis of liver; Z98.84 Bariatric surgery status; Z98.42 Cataract extraction status, left eye; Z98.41 Cataract extraction status, right eye; Z87.891 Personal history of nicotine dependence; Z79.82 Long term (current) use of aspirin; Z20.822 Contact with and (suspected) exposure to COVID-19
CPT/HCPCS: 36415; 71045; 73590; 80048; 80053; 80076; 80307; 81001; 82550; 82947; 83690; 83735; 83880; 84443; 84484; 85025; 85027; 85379; 85610; 85730; 87426; 93005; 93925; 93970; 94640; 96361; 96365; 96366; 96372; J1650; J1815; J1940; J2270; J3370; J3490; J7040; J7120; U0003; 97110; 97530; 97535; 99285-25

== ENCOUNTER 2021-12-11 10:41 | Emergency (ER) | payer OTHER, MEDICAID ==
[~2021-12-11] VITALS: Ht 162.6 cm; Wt 132.3 kg
[2021-12-11] MEDS ORDERED: ACETAMINOPHEN 500 MG TABLET PO ONE (11:30)
--- NOTE | 2021-12-11 12:01 | RAD ---
Single view of the chest. 12/11/2021 11:29 AM Indication: Reason: Covid positive, short of breath / Spl. Instructions: / History: Comparison: Chest radiograph September 24, 2021 Findings: Patchy infiltrates are seen throughout the bilateral lungs. No pneumothorax or pleural effu romel is seen. Heart size is top normal. Bony thorax is grossly intact. IMPRESSION: Patchy bilateral infiltrates throughout the bilateral lungs. Findings consistent with pro vided history of viral pneumonia Electronically signed by: Nish Stein MD (12/11/2021 11:58 AM) [id number]
[2021-12-11 12:15] LABS: BASO % 0 % (0-3); EOS % 0 % (0-3); HEMATOCRIT 31.6 % (39.0-53.0); HEMOGLOBIN 10.6 g/dL (13.0-17.5); LYMPH # 0.3 x10^3/uL (1.0-4.8); LYMPH % 6 % (24-48); MEAN CORPUSCULAR HEMOGLOBIN 32 pg (25-35); MEAN CORPUSCULAR HGB CONC 34 g/dL (31-37); MEAN CORPUSCULAR VOLUME 96 fL (79-100); MONO # 0.8 x10^3/uL (0.0-1.1); MONO % 14 % (0-9); NEUT # 4.6 x10^3uL (1.8-7.7); NEUT % 80 % (31-73); PLATELET COUNT 112 x10^3/uL (140-400); RED BLOOD COUNT 3.29 x10^6/uL (4.30-5.70); RED CELL DISTRIBUTION WIDTH 13.8 % (11.5-14.5); WHITE BLOOD COUNT 5.8 x10^3/uL (4.0-11.0)
[2021-12-11 12:25] LABS: CALCIUM 7.9 mg/dL (8.5-10.1); CREATININE 1.8 mg/dL (0.7-1.3); GFR 37.5; POTASSIUM 5.2 mmol/L (3.5-5.1)
--- NOTE | 2021-12-11 12:26 | EKG ---
[facility] ED [facility] [address] [place] [id number] Test Date: 2021-12-11 Test Time: 11:01:24 Pat Name: SUNDEEP HOLMAN Department: Room: Gender: M Project Management Analyst: PAULA : 1950 Requested By: ROBERTO ORTEGA Order Number: [id number] Reading MD: Stuart Rendon MD Measurements Intervals [place] Rate: 84 P: 43 [place]: 142 QRS: -50 QRSD: 124 T: 70 QT: 362 QTc: 431 Interpretive Statements SINUS RHYTHM ABNORMAL LEFT AXIS DEVIATION LAD LVH Electronically Signed On 12-11-2021 15:32:01 SPEECH COACH by Stuart Rendon MD
[2021-12-11 12:38] LABS: ALBUMIN 2.3 g/dL (3.4-5.0); ALBUMIN/GLOBULIN RATIO 0.8 (1.0-1.7); MAGNESIUM 1.9 mg/dL (1.8-2.4); PHOSPHORUS 2.6 mg/dL (2.6-4.7); TOTAL BILIRUBIN 1.1 mg/dL (0.2-1.0); TOTAL PROTEIN 5.3 g/dL (6.4-8.2)
[2021-12-11] MEDS ORDERED: IV NORMAL SALINE 1,000ML 1,000 ML IV ONE (13:15)
[2021-12-11] MEDS ORDERED: AZITHROMYCIN 250 MG TABLET. PO ONE (13:15)
[2021-12-11] MEDS ORDERED: cefTRIAXone SODIUM 1 GM VIAL ONE (13:19)
[2021-12-11] MEDS ORDERED: IV NORMAL SALINE 50ML 50 ML ONE (13:20)
[2021-12-11 13:27] VITALS: BP 145/75
[2021-12-11] MEDS ORDERED: AZIT250T6 PO (13:33)
--- NOTE | 2021-12-11 13:35 | PHYS DOC ---
Past History Past Medical History: Diabetes, GERD, Hypertension, Kidney Infection, Other Additional Past Medical Histor: "RARE SKIN DISEASE", CHRONIC LOWER BACK PAIN, TBI (ROBERTO ORTEGA APRN) Past Surgical History: Cholecystectomy, Other Additional Past Surgical Histo: GASTRIC BYPASS; BILAT KNEE REPLACEMENT (ROBERTO ORTEGA APRN) Smoking: Non-smoker Alcohol Use: Sober Drug Use: None (ROBERTO ORTEGA APRN) Adult General Chief Complaint Chief Complaint: SHORTNESS OF BREATH HPI HPI Patient is a 71-year-old male who presents to the emergency department concerning cough and shortness of breath at home. Patient reports 10 days ago he was told by his home health nurse he tested positive for the COVID-19 virus. Patient reports since then he has experienced general malaise and weakness, generalized body aches, notices he gets short of breath when he moves around a lot. Patient is worried that he may have pneumonia. Patient denies chest pains, denies chest palpitations, denies fever or chills at home. Denies nausea, vomiting, diarrhea, denies loss of taste or loss of smell. Patient reports he is a type II diabetic and has a history of congestive heart failure, has close follow-up with his primary care physician Dr. Cedrick Brizuela, denies other physical complaints or physical concerns. (ROBERTO ORTEGA APRN) Review of Systems Review of Systems 14 body systems of review of systems have been reviewed. See HPI for pertinent positives and negative responses, otherwise all other systems are negative, nonpertinent or noncontributory. Constitutional: Negative except as outlined in HPI above. Skin: Negative except as outlined in HPI above. Eyes: Negative except as outlined in HPI above. HENT: Negative except as outlined in HPI above. Respiratory: Negative except as outlined in HPI above. Cardiovascular: Negative except as outlined in HPI above. GI: Negative except as outlined in HPI above. : Negative except as outlined in HPI above. Musculoskeletal: Negative except as outlined in HPI above. Integument: Negative except as outlined in HPI above. Neurologic: Negative except as outlined in HPI above. Endocrine: Negative except as outlined in HPI above. Lymphatic: Negative except as outlined in HPI above. Psychiatric: Negative except as outlined in HPI above. (ROBERTO ORTEGA APRN) Current Medications Current Medications Current Medications Medications (Trade) Dose Ordered Sig/Estuardo Start Time Stop Time Status Last Admin Dose Admin Acetaminophen (Tylenol) 1,000 mg 1X ONCE 12/11/21 11:30 12/11/21 11:31 DC 12/11/21 11:48 1,000 MG Azithromycin (Zithromax) 500 mg 1X ONCE 12/11/21 13:15 12/11/21 13:16 UNV 12/11/21 13:28 500 MG Ceftriaxone Sodium 1 gm/ Sodium Chloride 50 ml @ 100 mls/hr 1X ONCE 12/11/21 13:15 12/11/21 13:44 UNV 12/11/21 13:27 100 MLS/HR Ceftriaxone Sodium (Rocephin) 1 gm STK-MED ONCE 12/11/21 13:19 12/11/21 13:19 DC Sodium Chloride 50 ml @ As Directed STK-MED ONCE 12/11/21 13:20 12/11/21 13:21 DC (ROBERTO ORTEGA APRN) Allergies Allergies Allergies Coded Allergies Type Severity Reaction Last Updated Verified No Known Drug Allergies 08/23/20 No (ROBERTO ORTEGA APRN) Physical Exam Physical Exam Constitutional: Well developed, well nourished, no acute distress, non-toxic appearance. [] HENT: Normocephalic, atraumatic, bilateral external ears normal, oropharynx moist, no oral exudates, nose normal. [] Eyes: PERRLA, EOMI, conjunctiva normal, no discharge. [] Neck: Normal range of motion, no tenderness, supple, no stridor. [] Cardiovascular:Heart rate regular rhythm, no murmur [] Lungs & Thorax: Bilateral breath sounds clear to auscultation [] Abdomen: Bowel sounds normal, soft, no tenderness, no masses, no pulsatile masses. [] Skin: Warm, dry, no erythema, no rash. [] Back: No tenderness, no CVA tenderness. [] Extremities: No tenderness, no cyanosis, no clubbing, ROM intact, no edema. [] Neurologic: Alert and oriented X 3, normal motor function, normal sensory function, no focal deficits noted. [] Psychologic: Affect normal, judgement normal, mood normal. [] (ROBERTO ORTEGA APRN) Current Patient Data Vital Signs Vital Signs Date Time Temp Pulse Resp B/P (MAP) Pulse Ox O2 Delivery O2 Flow Rate FiO2 12/11/21 12:57 71 20 128/67 (87) 96 Room Air 12/11/21 10:55 100.2 Lab Results Laboratory Tests Test 12/11/21 11:33 12/11/21 11:35 12/11/21 13:10 White Blood Count 5.8 x10^3/uL Red Blood Count 3.29 x10^6/uL Hemoglobin 10.6 g/dL Hematocrit 31.6 % Mean Corpuscular Volume 96 fL Mean Corpuscular Hemoglobin 32 pg Mean Corpuscular Hemoglobin Concent 34 g/dL Red Cell Distribution Width 13.8 % Platelet Count 112 x10^3/uL Neutrophils (%) (Auto) 80 % Lymphocytes (%) (Auto) 6 % Monocytes (%) (Auto) 14 % Eosinophils (%) (Auto) 0 % Basophils (%) (Auto) 0 % Neutrophils # (Auto) 4.6 x10^3uL Lymphocytes # (Auto) 0.3 x10^3/uL Monocytes # (Auto) 0.8 x10^3/uL Eosinophils # (Auto) 0.0 x10^3/uL Basophils # (Auto) 0.0 x10^3/uL Sodium Level 135 mmol/L Potassium Level 5.2 mmol/L Chloride Level 104 mmol/L Carbon Dioxide Level 22 mmol/L Anion Gap 9 Blood Urea Nitrogen 25 mg/dL Creatinine 1.8 mg/dL Estimated GFR (Cockcroft-Gault) 37.5 BUN/Creatinine Ratio 14 Glucose Level 149 mg/dL Calcium Level 7.9 mg/dL Phosphorus Level 2.6 mg/dL Magnesium Level 1.9 mg/dL Total Bilirubin 1.1 mg/dL Aspartate Amino Transf (AST/SGOT) 26 U/L Alanine Aminotransferase (ALT/SGPT) 18 U/L Alkaline Phosphatase 82 U/L Troponin I High Sensitivity 33 ng/L IT-[id number]-Type Natriuretic Peptide 769 pg/mL Total Protein 5.3 g/dL Albumin 2.3 g/dL Albumin/Globulin Ratio 0.8 Lipase 48 U/L Influenza Type A (Rapid) Negative Influenza Type B (Rapid) Negative SARS-CoV-2 Antigen (Rapid) Negative Urine Collection Type Clean catch Urine Color Yellow Urine Clarity Clear Urine pH 5.5 Urine Specific [place] 1.025 Urine Protein >100 mg/dl Urine Glucose (UA) Neg mg/dL Urine Ketones (Stick) Trace mg/dL Urine Blood Neg Urine Nitrite Pos Urine Bilirubin Neg Urine Urobilinogen Dipstick 1.0 mg/dL Urine Leukocyte Esterase Neg Urine RBC 1-2 /HPF Urine WBC 5-10 /HPF Urine Squamous Epithelial Cells Few /LPF Urine Bacteria Few /HPF Current Medications Medications (Trade) Dose Ordered Sig/Estuardo Route PRN Reason Start Time Stop Time Status Last Admin Dose Admin Acetaminophen (Tylenol) 1,000 mg 1X ONCE PO 12/11/21 11:30 12/11/21 11:31 DC 12/11/21 11:48 Ceftriaxone Sodium 1 gm/ Sodium Chloride 50 ml @ 100 mls/hr 1X ONCE IV 12/11/21 13:15 12/11/21 13:44 DC 12/11/21 13:27 Azithromycin (Zithromax) 500 mg 1X ONCE PO 12/11/21 13:15 12/11/21 13:35 DC 12/11/21 13:28 Sodium Chloride 1,000 ml @ 1,000 mls/hr 1X ONCE IV 12/11/21 13:15 12/11/21 14:14 DC 12/11/21 13:25 Ceftriaxone Sodium (Rocephin) 1 gm STK-MED ONCE .ROUTE 12/11/21 13:19 12/11/21 13:19 DC Sodium Chloride 50 ml @ As Directed STK-MED ONCE .ROUTE 12/11/21 13:20 12/11/21 13:21 DC Laboratory Tests Test 12/11/21 11:33 White Blood Count 5.8 x10^3/uL (4.0-11.0) Red Blood Count 3.29 x10^6/uL (4.30-5.70) L Hemoglobin 10.6 g/dL (13.0-17.5) L Hematocrit 31.6 % (39.0-53.0) L Mean Corpuscular Volume 96 fL (79-100) Mean Corpuscular Hemoglobin 32 pg (25-35) Mean Corpuscular Hemoglobin Concent 34 g/dL (31-37) Red Cell Distribution Width 13.8 % (11.5-14.5) Platelet Count 112 x10^3/uL (140-400) L Neutrophils (%) (Auto) 80 % (31-73) H Lymphocytes (%) (Auto) 6 % (24-48) L Monocytes (%) (Auto) 14 % (0-9) H Eosinophils (%) (Auto) 0 % (0-3) Basophils (%) (Auto) 0 % (0-3) Neutrophils # (Auto) 4.6 x10^3uL (1.8-7.7) Lymphocytes # (Auto) 0.3 x10^3/uL (1.0-4.8) L Monocytes # (Auto) 0.8 x10^3/uL (0.0-1.1) Eosinophils # (Auto) 0.0 x10^3/uL (0.0-0.7) Basophils # (Auto) 0.0 x10^3/uL (0.0-0.2) Sodium Level 135 mmol/L (136-145) L Potassium Level 5.2 mmol/L (3.5-5.1) H Chloride Level 104 mmol/L (98-107) Carbon Dioxide Level 22 mmol/L (21-32) Anion Gap 9 (6-14) Blood Urea Nitrogen 25 mg/dL (8-26) Creatinine 1.8 mg/dL (0.7-1.3) H Estimated GFR (Cockcroft-Gault) 37.5 BUN/Creatinine Ratio 14 (6-20) Glucose Level 149 mg/dL (70-99) H Calcium Level 7.9 mg/dL (8.5-10.1) L Phosphorus Level 2.6 mg/dL (2.6-4.7) Magnesium Level 1.9 mg/dL (1.8-2.4) Total Bilirubin 1.1 mg/dL (0.2-1.0) H Aspartate Amino Transferase (AST) 26 U/L (15-37) Alanine Aminotransferase (ALT) 18 U/L (16-63) Alkaline Phosphatase 82 U/L (46-116) Troponin I High Sensitivity 33 ng/L (4-75) TQ-Gcp-R-Type Natriuretic Peptide 769 pg/mL (0-124) H Total Protein 5.3 g/dL (6.4-8.2) L Albumin 2.3 g/dL (3.4-5.0) L Albumin/Globulin Ratio 0.8 (1.0-1.7) L Lipase 48 U/L (73-393) L (ADAMOVICH,CORETTA CARGO ROUTER) EKG EKG EKG performed at 1101 by ED nursing staff shows a normal sinus rhythm with leftward axis deviation, heart rate 84 bpm, no other ectopy appreciated, OH interval 0.142, QTc interval 0.431, no acute STEMI, no ACS, no acute ischemia appreciated, EKG interpreted by ED attending physician Dr. Hoffman. (ROBERTO ORTEGA APRN) Radiology/Procedures Radiology/Procedures REASON: Covid positive, short of breath PROCEDURE: CHEST AP ONLY Single view of the chest. 12/11/2021 11:29 AM Indication: Reason: Covid positive, short of breath / Spl. Instructions: / History: Comparison: Chest radiograph September 24, 2021 Findings: Patchy infiltrates are seen throughout the bilateral lungs. No pneumothorax or pleural effusion is seen. Heart size is top normal. Bony thorax is grossly intact. IMPRESSION: Patchy bilateral infiltrates throughout the bilateral lungs. Findings consistent with provided history of viral pneumonia Electronically signed by: Nish Stein MD (12/11/2021 11:58 AM) [id number] (ROBERTO ORTEGA APRN) Heart Score C/O Chest Pain: No Risk Factors: Risk Factors: DM, Current or recent (<one month) smoker, HTN, HLP, family history of CAD, obesity. Risk Scores: Risk Factors: DM, Current or recent (<one month) smoker, HTN, HLP, family history of CAD, obesity. (ROBERTO ORTEGA APRN) Course & Med Decision Making Course & Med Decision Making Pertinent Labs and Imaging studies reviewed. (See chart for details) 71-year-old male, vital signs reviewed, presents emergency department concerning ongoing cough and shortness of breath at home since testing +10 days ago for the COVID-19 virus. Patient is not hypoxic however will order chest x-ray, EKG, troponin high-sensitivity, NT proBNP, CBC, CMP, urinalysis assay. Patient's chest x-ray concerning for viral pneumonia versus atypical pneumonia, will treat in ED with 1 g Rocephin IV, 500 mg Zithromax p.o. Urine pending at this time. Patient's urine is infected, patient was given 1 g of Rocephin IV in ED, will not pursue further treatment in the ED, patient is not hypoxic, discussed findings of chest x-ray with patient and urine results, patient does not wish to be admitted at this time as he fears the COVID-19 virus infection and hospitals might make him worse, the patient is in no respiratory distress, will treat with Zithromax p.o. regimen at home, will also prescribe Keflex regimen for urinary tract infection, patient states he does have a oxygen saturation machine at home and checks his oxygen saturations daily, discussed with patient to return to the emergency department if oxygen saturation is below 90 or maintained below 90 after taking deep breaths, discussed return to ER precautions and concerns, strict follow-up with primary care soon, discussed antibiotic regimen with side effects, patient states he is comfortable going home, with patient's permission I discussed patient's ED case with patient's daughter who cares for him at home as well, reviewed discharge instructions, return to ER precautions and concerns with patient's daughter who verbal understanding of and is amenable to patient's ED discharge planning. Discussed with the patient all findings and diagnostic testing as well as the need to follow-up with their primary care provider for further evaluation and treatment or return to the ED if any new or worsening symptoms. Strict return precautions were also discussed at length, the patient voiced understanding and agreement with the discharge planning. The patient was nontoxic in appearance, in no apparent distress, and hemodynamically stable at the time of disposition. (ROBERTO ORTEGA APRN) Dragon Disclaimer Dragon Disclaimer This electronic medical record was generated, in whole or in part, using a voice recognition dictation system. (ROBERTO ORTEGA APRN) Attending Co-Sign The patient was seen and interviewed as well as examined at the bedside. The chart was reviewed. The case was discussed. Agree with the plan of care. (CAN HOFFMAN DO) Departure Departure: Impression: Primary Impression: Community acquired pneumonia Additional Impressions: Atypical pneumonia COVID-19 virus infection Urinary tract infection Disposition: HOME / SELF CARE / HOMELESS Condition: GOOD Referrals: CEDRICK TANG (PCP) Patient Instructions: Pneumonia, Adult, Urinary Tract Infection Additional Instructions: You were seen today in the emergency department for shortness of breath. You do have the COVID-19 virus, your chest x-ray is concerning for Covid pneumonia. Your urine also shows a urinary tract infection. You were treated with antibiotics in the emergency department today, you will not need to start any prescribed antibiotics until tomorrow, he will have 2 different antibiotics that you will take, one of them will last over 5 days while the other one last a total of 10 days. As we discussed, please check your oxygen saturation at least once a day, please call Dr. Fall for any oxygen saturations below 90. Please call Dr[address] Fall today or tomorrow to let her know of your emergency room visit today, please advise your doctor that you do have Covid pneumonia, you were not started on steroids because you are not hypoxic. You were given 1 g of Rocephin intravenously, you were started on a Zithromax Z-Vasyl, you are also started on Keflex 4 times a day for 10 days for a urinary tract infection. Please follow any further recommendations that Dr. Fall may give. You do have the COVID-19 virus infection, I suspect you will have generalized body aches and weakness along with periods of shortness of breath, however with close monitoring of your oxygen saturation, taking your medications as directed, maintaining good blood sugar control with your diabetes, taking your heart medications as directed, and use of [id number] Tylenol or Motrin for ongoing aches and pains or fevers will help you recover during this viral process. Please return to the emergency department for worsening symptoms or other concerns. Thank you for visiting our Emergency Department. It was a pleasure taking care of you today in the emergency department and we appreciate you trusting us with your care. If any additional problems come up don't hesitate to return to visit us. Please follow up with your primary care provider so they can plan additional care if needed and know about the problem that you had. If symptoms worsen come back to the Emergency Department. Any concerning symptoms that start such as chest pain, shortness of air, weakness or numbness on one side of the body, running high fevers or any other concerning symptoms return to the ER. You have been tested for or diagnosed with COVID-19. It is an infection caused by a new type of coronavirus. COVID-19 will cause cold-like or mild flu symptoms in most. It can cause more severe symptoms like problems breathing in some. There is no treatment for COVID-19. The body will clear the infection over time. Self-care will help to ease discomfort. Steps to Take: Self-Care Rest as needed. Healthy habits may help you feel better. Steps include: Choose healthy foods including fruits and vegetables. Drink water throughout the day. Get plenty of sleep each night. If you smoke, try to quit. It may ease breathing. Avoid alcohol. Keep Others Healthy The virus can spread to others. Droplets are released every time you sneeze or cough. The droplets can get into the mouth, nose, or eyes of people near you and lead to infection. To lower the chances of spreading COVID-19 to others: Stay at home until your doctor has said it is safe to leave. If you tested positive this will mean staying isolated until both of the following are true: At least 7 days have passed since the start of illness. You are free of fever for at least 72 hours without the use of medicine. During this time: - Avoid public areas, events, or transportation. Do not return to work or school until your doctor has said it is safe to do so. - Call ahead if you need to go to a medical center. Let them know you may have COVID-19. It will help them guide you where to go. They may also ask you to wear a facemask w hen you come to the office. - If you call for emergency medical services, let them know you may have COVID- 19. While at home: - Try to avoid close contact with others. Stay about 6 feet away. - If possible, spend most of your time in a separate room from others. - Use a face mask if you will be in close contact with others such as sharing a room or vehicle. - Have someone wipe down common surfaces in the home. Use household mailroom messenger every day on areas like doorknobs, counters, or sinks. - Cough or sneeze into a tissue. Throw the tissue away right after use. If a tissue is not available, cough or sneeze into your elbow. - Wash your hands often. Wash them after sneezing or coughing. Use soap and water and wash for at least 20 seconds. Alcohol based hand tank car cleaner can be used if soap and water is not available. - Do not prepare food for others. Avoid sharing personal items like forks, spoons, or toothbrushes. - Avoid close contact with pets while you are sick. There is no evidence of the virus passing to pets. This is a safety step until more is known about this virus. Isolation can be frustrating. Social interaction can help. Keep in touch with friends and family through phone and tech options. You can still interact with others in your home, just keep a safe distance of about 6 feet. Follow-up: Your doctors office will check in with you to see if there are any changes in your health. You may be asked to keep track of symptoms to share with them. They will also let you know when you are clear to be in public again. Problems to Look Out For: Contact your doctor if your recovery is not going as you expect. Get emergency care if you have problems such as: - Trouble breathing - Nonstop chest pain or pressure - Changes in awareness, confusion, or problems waking - Lips or face have bluish color - Worsening of symptoms If you think you have an emergency, call for emergency medical services right away. As taken from [facility] Cephalexin (KEFLEX) 500 Mg Capsule 1 CAP PO QID for UTI for 10 Days, #40 CAP 0 Refills Prov: ROBERTO ORTEGA APRN 12/11/21 Azithromycin (AZITHROMYCIN TABLET) 250 Mg Tablet 1 PKG PO UD for pneumonia for 5 Days, #6 TAB 0 Refills 2 the first day followed by 1 for days 2-5 Prov: ROBERTO ORTEGA APRN 12/11/21 Problem Qualifiers Primary Impression: Community acquired pneumonia Laterality: unspecified laterality Qualified Codes: J18.9 - Pneumonia, unspecified organism Additional Impressions: Urinary tract infection Urinary tract infection type: site unspecified Hematuria presence: without hematuria Qualified Codes: N39.0 - Urinary tract infection, site not specified ROBERTO ORTEGA APRN Dec 11, 2021 13:35 CAN HOFFMAN DO Dec 12, 2021 11:40
[2021-12-11 13:45] LABS: CLARITY,URINE CLEAR; COLOR,URINE YELLOW
[2021-12-11 13:46] LABS: BACTERIA,URINE FEW /HPF (0-FEW); BILIRUBIN,URINE NEG (NEG); GLUCOSE,URINE NEG (NEG); NITRITE,URINE POS (NEG); SQUAMOUS EPITHELIAL CELL,UR FEW /LPF
[2021-12-11] MEDS ORDERED: CEPH500C PO (13:58)
[2021-12-11 14:08] LABS: INFLUENZA A PATIENT NEGATIVE (NEGATIVE); INFLUENZA B PATIENT NEGATIVE (NEGATIVE)
== END 2021-12-11 14:30 | disposition home or self-care (01) ==
LOC: ER 10:41
DX: U07.1 COVID-19 (principal); J18.9 Pneumonia, unspecified organism; N39.0 Urinary tract infection, site not specified; E11.9 Type 2 diabetes mellitus without complications; K21.9 Gastro-esophageal reflux disease without esophagitis; I10 Essential (primary) hypertension; G89.29 Other chronic pain; Z87.820 Personal history of traumatic brain injury; Z90.49 Acquired absence of other specified parts of digestive tract; Z98.84 Bariatric surgery status
CPT/HCPCS: 36415; 71045; 80053; 81001; 83690; 83735; 83880; 84100; 84484; 85025; 87040; 87086; 87428; 93005; 96365; 99285; C9803; J0696; J7030; U0003

== ENCOUNTER → 2022-02-13 | Outpatient (CLI) | payer OTHER, MEDICAID ==
[~2022-02-13] MED LIST changes: +AZIT250T6 PO; +CEPH500C PO
[2022-02-13 12:45] LABS: HEMATOCRIT 37.3 % (39.0-53.0); HEMOGLOBIN 12.2 g/dL (13.0-17.5)
[2022-02-13 13:08] LABS: ALBUMIN 2.9 g/dL (3.4-5.0); CALCIUM 9.3 mg/dL (8.5-10.1); GFR 33.2; PHOSPHORUS 4.4 mg/dL (2.6-4.7); POTASSIUM 4.9 mmol/L (3.5-5.1)
[2022-02-14 07:34] LABS: CALCIUM PTH 9.5 mg/dL (8.6-10.2); CREATININE PTH 1.91 mg/dL (0.76-1.27); PTH INTACT 53 pg/mL (15-65)
== END ==
LOC: LAB 12:01
PROVIDERS: ATTEND Nurse Practitioner Adult Health
DX: I12.9 Hypertensive chronic kidney disease with stage 1 through stage 4 chronic kidney disease, or unspecified chronic kidney disease (principal); E11.22 Type 2 diabetes mellitus with diabetic chronic kidney disease; N18.32 Chronic kidney disease, stage 3b; E11.21 Type 2 diabetes mellitus with diabetic nephropathy; N17.9 Acute kidney failure, unspecified; R80.9 Proteinuria, unspecified; E87.5 Hyperkalemia; N20.0 Calculus of kidney; E55.9 Vitamin D deficiency, unspecified; D64.9 Anemia, unspecified; E66.01 Morbid (severe) obesity due to excess calories; Z79.4 Long term (current) use of insulin; Z68.41 Body mass index [BMI] 40.0-44.9, adult
CPT/HCPCS: 36415; 80069; 82570; 83970; 84156; 85014; 85018

== ENCOUNTER 2022-04-03 08:00 | Emergency (ER) | payer OTHER, MEDICAID ==
[~2022-04-03] VITALS: Ht 162.6 cm; Wt 130.7 kg
[2022-04-03] MEDS ORDERED: IV NORMAL SALINE 1,000ML 1,000 ML IV SCH (08:15)
[2022-04-03] MEDS: MORPHINE SULFATE 4 MG/ML DISP.SYRIN. IV/SQ PRN ×4 (08:25→11:35)
[2022-04-03] MEDS ORDERED: ONDANSETRON PF 4 MG/2 ML VIAL. IVP ONE (08:45)
[2022-04-03 08:58] LABS: BASO % 0 % (0-3); EOS # 0.2 x10^3/uL (0.0-0.7); EOS % 4 % (0-3); HEMATOCRIT 36.7 % (39.0-53.0); LYMPH # 0.9 x10^3/uL (1.0-4.8); LYMPH % 19 % (24-48); MEAN CORPUSCULAR HEMOGLOBIN 32 pg (25-35); MEAN CORPUSCULAR HGB CONC 33 g/dL (31-37); MEAN CORPUSCULAR VOLUME 97 fL (79-100); MONO # 0.5 x10^3/uL (0.0-1.1); MONO % 11 % (0-9); NEUT # 3.3 x10^3uL (1.8-7.7); NEUT % 66 % (31-73); PLATELET COUNT 94 x10^3/uL (140-400); RED BLOOD COUNT 3.78 x10^6/uL (4.30-5.70); RED CELL DISTRIBUTION WIDTH 14.3 % (11.5-14.5)
[2022-04-03 09:05] LABS: CALCIUM 8.8 mg/dL (8.5-10.1); CREATININE 2.2 mg/dL (0.7-1.3); GFR 29.7; POTASSIUM 4.6 mmol/L (3.5-5.1)
[2022-04-03 09:11] LABS: ALBUMIN 2.7 g/dL (3.4-5.0); ALBUMIN/GLOBULIN RATIO 0.9 (1.0-1.7); TOTAL BILIRUBIN 0.5 mg/dL (0.2-1.0); TOTAL PROTEIN 5.8 g/dL (6.4-8.2)
--- NOTE | 2022-04-03 09:11 | PHYS DOC ---
Past History Past Medical History: Diabetes, GERD, Hypertension, Kidney Infection, Other Additional Past Medical Histor: "RARE SKIN DISEASE", CHRONIC LOWER BACK PAIN, TBI Past Surgical History: Cholecystectomy, Other Additional Past Surgical Histo: GASTRIC BYPASS; BILAT KNEE REPLACEMENT Smoking: Non-smoker Alcohol Use: Sober Drug Use: None Adult General Chief Complaint Chief Complaint: MECHANICAL FALL HPI HPI Patient is a 71 year old male who presents with complaint of left upper leg pain. The patient states that prior to arrival when he attempted to go to the bathroom, he felt his left knee give out on him. This caused him to fall onto his left hip. States that he is currently having 10 out of 10 pain in the left hip that radiates into the left knee. The patient contacted EMS and was brought to the emergency department for further evaluation. Has previous history of bilateral total knee replacements. States that he is unable to straighten his left leg secondary to pain. Denies hitting head or losing consciousness. Currently denies any other injuries. Review of Systems Review of Systems Constitutional: Denies fever or chills [] Eyes: Denies change in visual acuity, redness, or eye pain [] HENT: Denies nasal congestion or sore throat [] Respiratory: Denies cough or shortness of breath [] Cardiovascular: Denies chest pain or edema [] GI: Denies abdominal pain, nausea, vomiting, bloody stools or diarrhea [] : Denies dysuria or hematuria [] Musculoskeletal: Left hip and knee pain [] Integument: Denies rash or skin lesions [] Neurologic: Denies headache, focal weakness or sensory changes [] All other systems were reviewed and found to be within normal limits, except as documented in this note. Current Medications Current Medications Current Medications Medications (Trade) Dose Ordered Sig/Estuardo Start Time Stop Time Status Last Admin Dose Admin Morphine Sulfate (Morphine 4mg Syringe) 4 mg PRN Q15MIN PRN 04/03/22 08:15 04/04/22 08:14 04/03/22 08:25 4 MG Ondansetron HCl (Zofran) 4 mg 1X ONCE 04/03/22 08:45 04/03/22 08:46 DC Sodium Chloride 1,000 ml @ 125 mls/hr Q8H 04/03/22 08:15 04/03/22 16:14 04/03/22 08:25 125 MLS/HR Allergies Allergies Allergies Coded Allergies Type Severity Reaction Last Updated Verified No Known Drug Allergies 04/03/22 No Physical Exam Physical Exam Constitutional: Alert, obese, afebrile, appears in severe pain. [] HENT: Normocephalic, atraumatic, bilateral external ears normal, oropharynx moist, no oral exudates, nose normal. [] Eyes: PERRLA, EOMI, conjunctiva normal, no discharge. [] Neck: Normal range of motion, no tenderness, supple, no stridor. [] Cardiovascular:Heart rate regular rhythm, no murmur [] Lungs & Thorax: Bilateral breath sounds clear to auscultation [] Abdomen: Bowel sounds normal, soft, no tenderness, no masses, no pulsatile masses. [] Skin: Warm, dry, multiple ecchymoses present on extensor surfaces of bilateral upper and lower extremities. [] Back: No tenderness, no CVA tenderness. [] Extremities: Left lower extremity held in flexed position at hip and knee, patient notes severe pain with attempted passive extension, tenderness to palpation present over left greater trochanter, neurovascularly intact distal to injury. [] Neurologic: Alert and oriented X 3, normal motor function, normal sensory f unction, no focal deficits noted. [] Current Patient Data Vital Signs Vital Signs Date Time Temp Pulse Resp B/P (MAP) Pulse Ox O2 Delivery O2 Flow Rate FiO2 04/03/22 08:25 12 99 Room Air 04/03/22 08:04 97.6 67 154/66 (95) Lab Results Laboratory Tests Test 04/03/22 08:15 White Blood Count 5.0 x10^3/uL Red Blood Count 3.78 x10^6/uL Hemoglobin 12.0 g/dL Hematocrit 36.7 % Mean Corpuscular Volume 97 fL Mean Corpuscular Hemoglobin 32 pg Mean Corpuscular Hemoglobin Concent 33 g/dL Red Cell Distribution Width 14.3 % Platelet Count 94 x10^3/uL Neutrophils (%) (Auto) 66 % Lymphocytes (%) (Auto) 19 % Monocytes (%) (Auto) 11 % Eosinophils (%) (Auto) 4 % Basophils (%) (Auto) 0 % Neutrophils # (Auto) 3.3 x10^3uL Lymphocytes # (Auto) 0.9 x10^3/uL Monocytes # (Auto) 0.5 x10^3/uL Eosinophils # (Auto) 0.2 x10^3/uL Basophils # (Auto) 0.0 x10^3/uL Prothrombin Time 11.5 SEC Prothromb Time International Ratio 1.1 Activated Partial Thromboplast Time 25 SEC Sodium Level 142 mmol/L Potassium Level 4.6 mmol/L Chloride Level 109 mmol/L Carbon Dioxide Level 26 mmol/L Anion Gap 7 Blood Urea Nitrogen 40 mg/dL Creatinine 2.2 mg/dL Estimated GFR (Cockcroft-Gault) 29.7 BUN/Creatinine Ratio 18 Glucose Level 107 mg/dL Calcium Level 8.8 mg/dL Total Bilirubin 0.5 mg/dL Aspartate Amino Transf (AST/SGOT) 24 U/L Alanine Aminotransferase (ALT/SGPT) 36 U/L Alkaline Phosphatase 90 U/L Total Protein 5.8 g/dL Albumin 2.7 g/dL Albumin/Globulin Ratio 0.9 Current Medications Medications (Trade) Dose Ordered Sig/Estuardo Route PRN Reason Start Time Stop Time Status Last Admin Dose Admin Sodium Chloride 1,000 ml @ 125 mls/hr Q8H IV 04/03/22 08:15 04/03/22 16:14 04/03/22 08:25 Morphine Sulfate (Morphine 4mg Syringe) 4 mg PRN Q15MIN PRN IV/SQ PAIN GREATER THAN 3/10 04/03/22 08:15 04/04/22 08:14 04/03/22 09:07 Ondansetron HCl (Zofran) 4 mg 1X ONCE IVP 04/03/22 08:45 04/03/22 08:46 DC 04/03/22 09:05 EKG EKG EKG interpreted by me: Heart rate 65, sinus rhythm, left bundle branch block, no acute ST/T wave abnormalities [] Radiology/Procedures Radiology/[place] [address] IMAGING REPORT Signed PATIENT: SUNDEEP HOLMAN ACCOUNT: [id number] : 1950 LOCATION: ER AGE: 71 SEX: M EXAM STATUS: REG ER ORD. PHYSICIAN: WAN MURILLO MD REASON: fall PROCEDURE: CT HEAD WO CONTRAST EXAM: Head CT without contrast. HISTORY: Pain. Fall. TECHNIQUE: Computed tomographic images of the head were obtained without contrast. *One or more of the following individualized dose reduction techniques were utilized for this examination: 1. Automated exposure control. 2. Adjustment of the mA and/or kV according to patient size. 3. Use of iterative reconstruction technique. COMPARISON: None. FINDINGS: There is no acute hemorrhage. There is encephalomalacia within the left frontal and occipital lobes due to chronic infarction. There is slight a symmetric left cerebral volume loss with asymmetric compensatory enlargement of the left lateral ventricle and extra-axial space. There are cerebral white matter changes likely due to chronic small vessel disease. There is a suspected chronic lacunar infarct with adjacent calcification within the right basal ganglia. There is evidence of lens surgery. The paranasal sinuses and mastoid air cells are unremarkable. There is no calvarial lesion. IMPRESSION: 1. No acute intracranial finding. 2. Chronic infarcts involving the left frontal and occipital lobes and asymmetric left cerebral volume loss. 3. Chronic lacunar infarct within the right basal ganglia. 4. Bilateral cerebral white matter changes, likely due to chronic small vessel disease. Electronically signed by: Carin Conley MD (04/03/2022 9:40 AM) [facility] DICTATED AND SIGNED BY: CARIN CONLEY MD DATE: 04/03/22937 CC: WAN MURILLO MD; [place] [address] IMAGING REPORT Signed PATIENT: SUNDEEP HOLMAN ACCOUNT: [id number] : 1950 LOCATION: ER AGE: 71 SEX: M EXAM STATUS: REG ER ORD. PHYSICIAN: WAN MURILLO MD REASON: fall, left hip pain PROCEDURE: PORTABLE CHEST 1V Exam Date: 04/03/2022 9:03 AM XR CHEST 1V Indication: Reason: fall, left hip pain / Spl. Instructions: / History: . Comparison: December 11, 2021 FINDINGS/ IMPRESSION: The aorta is calcified. The cardiac silhouette is enlarged without significant congestion. There is no focal consolidation, pleural effusion or pneumothorax. There is slight irregularity of the distal left clavicle, though this area is suboptimally visualized due to overlying text on the image. This appearance could be projectional and related to positioning, or could be related to chronic trauma. If there is point tenderness at this site, consider further workup with clavicle radiographs to exclude acute pathology. Electronically signed by: Sari Barcenas MD (04/03/2022 9:49 AM) [id number] DICTATED AND SIGNED BY: SARI BARCENAS MD DATE: 04/03/22945 CC: WAN MURILLO MD; CEDRICK TANG ~ [address] [address] IMAGING REPORT Signed PATIENT: SUNDEEP HOLMAN ACCOUNT: [id number] : 1950 LOCATION: ER AGE: 71 SEX: M EXAM STATUS: REG ER ORD. PHYSICIAN: WAN MURILLO MD REASON: fall, left hip pain PROCEDURE: HIP LEFT 2V WITH PELVIS Exam: XR LT HIP (WITH OR WITHOUT PELVIS) 2 VIEWS History: Fall, left hip pain Comparison: None. Findings: Osseous mineralization is normal. There is a comminuted intertrochanteric fracture of the left proximal femur with extension into the femoral neck and proximal diaphysis. Mild degenerative changes of the bilateral hips. The pubic rami are intact. Degenerative changes of lower lumbar spine atherosclerotic vascular calcifications. Impression: 1. Comminuted intertrochanteric fracture of the left hip. Electronically signed by: Bg Bailey MD (04/03/2022 9:45 AM) [id number] DICTATED AND SIGNED BY: BG BAILEY MD DATE: 04/03/22941 CC: WAN MURILLO MD; CEDRICK TANG ~ [address] [address] IMAGING REPORT Signed PATIENT: SUNDEEP HOLMAN ACCOUNT: [id number] : 1950 LOCATION: ER AGE: 71 SEX: M EXAM STATUS: REG ER ORD. PHYSICIAN: WAN MURILLO MD REASON: fall, left hip pain PROCEDURE: LEFT FEMUR XRAY Exam Date: 04/03/2022 9:03 AM XR FEMUR_LEFT 1 VIEW Indication: Pain. Reason: fall, left hip pain / Spl. Instructions: / History: . FINDINGS/ IMPRESSION: There is an acute comminuted intertrochanteric and subtrochanteric fracture of the left proximal femur with moderate medial angulation of the femoral shaft. The subcapital and transcervical femoral neck are not well visualized but demonstrate cortical irregularity which could represent overhanging osteophytes and or femoral neck fractures. Dedicated left hip radiographs are recommended f or improved diagnostic visualization. Left total knee arthroplasty is noted without apparent complication. Electronically signed by: Sari Barcenas MD (04/03/2022 9:46 AM) [id number] DICTATED AND SIGNED BY: SARI BARCENAS MD DATE: 04/03/22942 CC: WAN MURILLO MD; CEDRICK TANG ~ [] Heart Score C/O Chest Pain: No Risk Factors: Risk Factors: DM, Current or recent (<one month) smoker, HTN, HLP, family history of CAD, obesity. Risk Scores: Risk Factors: DM, Current or recent (<one month) smoker, HTN, HLP, family history of CAD, obesity. Course & Med Decision Making Course & Med Decision Making Pertinent Labs and Imaging studies reviewed. (See chart for details) The patient was found to have a left femoral fracture involving both intertrocha nteric and subtrochanteric portions. Patient was administered IV morphine to assist with pain control. The patient is in need of higher level of care than can be provided at [facility]. We contacted [facility]. Patient care was accepted by Dr. Farrar, hospitalist, for transfer. Patient will be transferred by ground ambulance for further care. Spoke with patient regarding plan of care and he is in agreement at time of disposition. [] Dragon Disclaimer Dragon Disclaimer This electronic medical record was generated, in whole or in part, using a voice recognition dictation system. Departure Departure: Impression: Primary Impression: Femur fracture, left Additional Impressions: Morbid obesity Diabetes mellitus Benign essential hypertension Acute renal failure superimposed on chronic kidney disease Disposition: 02 SHORT TERM HOSPITAL Condition: STABLE Referrals: CEDRICK TANG (PCP) Problem Qualifiers Primary Impression: Femur fracture, left Encounter type: initial encounter Femur location: subtrochanteric Fracture type: closed Fracture alignment: displaced Qualified Codes: S72.22XA - Displaced subtrochanteric fracture of left femur, initial encounter for closed fracture Additional Impressions: Acute renal failure superimposed on chronic kidney disease Acute renal failure type: unspecified Chronic kidney disease stage: stage 3 (moderate) Chronic kidney disease stage 3 subtype: unspecified whether 3a or 3b Qualified Codes: N17.9 - Acute kidney failure, unspecified; N18.30 - Chronic kidney disease, stage 3 unspecified WAN MURILLO MD April 03, 2022 09:11
--- NOTE | 2022-04-03 09:43 | RAD ---
EXAM: Head CT without contrast. HISTORY: Pain. Fall. TECHNIQUE: Computed tomographic images of the head were obtained without contrast. *One or more of the following individualized dose reduction techniques were utilized for this examina tion: 1. Automated exposure control. 2. Adjustment of the mA and/or kV according to patient size. 3. Use of iterative reconstruction technique. COMPARISON: None. FINDINGS: There is no acute hemorrhage. There is encephalomalacia within the left frontal and occipit al lobes due to chronic infarction. There is slight asymmetric left cerebral volume loss with asymmet alejandro compensatory enlargement of the left lateral ventricle and extra-axial space. There are cerebral white matter changes likely due to chronic small vessel disease. There is a suspected chronic lacunar infarct with adjacent calcification within the right basal ganglia. There is evidence of lens surger y. The paranasal sinuses and mastoid air cells are unremarkable. There is no calvarial lesion. IMPRESSION: 1. No acute intracranial finding. 2. Chronic infarcts involving the left frontal and occipital lobes and asymmetric left cerebral volum e loss. 3. Chronic lacunar infarct within the right basal ganglia. 4. Bilateral cerebral white matter changes, likely due to chronic small vessel disease. Electronically signed by: Carin Andersen MD (04/03/2022 9:40 AM) [facility]
--- NOTE | 2022-04-03 09:47 | RAD ---
Exam: XR LT HIP (WITH OR WITHOUT PELVIS) 2 VIEWS History: Fall, left hip pain Comparison: None. Findings: Osseous mineralization is normal. There is a comminuted intertrochanteric fracture of the left proxim al femur with extension into the femoral neck and proximal diaphysis. Mild degenerative changes of th e bilateral hips. The pubic rami are intact. Degenerative changes of lower lumbar spine atherosclerot ic vascular calcifications. Impression: 1. Comminuted intertrochanteric fracture of the left hip. Electronically signed by: Bg Estevez MD (04/03/2022 9:45 AM) [id number]
--- NOTE | 2022-04-03 09:49 | RAD ---
Exam Date: 04/03/2022 9:03 AM XR FEMUR_LEFT 1 VIEW Indication: Pain. Reason: fall, left hip pain / Spl. Instructions: / History: . FINDINGS/ IMPRESSION: There is an acute comminuted intertrochanteric and subtrochanteric fracture of the left proximal femu r with moderate medial angulation of the femoral shaft. The subcapital and transcervical femoral nec k are not well visualized but demonstrate cortical irregularity which could represent overhanging ost eophytes and or femoral neck fractures. Dedicated left hip radiographs are recommended for improved diagnostic visualization. Left total knee arthroplasty is noted without apparent complication. Electronically signed by: Rodney Barcenas MD (04/03/2022 9:46 AM) [id number]
--- NOTE | 2022-04-03 09:51 | RAD ---
Exam Date: 04/03/2022 9:03 AM XR CHEST 1V Indication: Reason: fall, left hip pain / Spl. Instructions: / History: . Comparison: December 11, 2021 FINDINGS/ IMPRESSION: The aorta is calcified. The cardiac silhouette is enlarged without significant congestion. There is no focal consolidation, pleural effusion or pneumothorax. There is slight irregularity of the distal left clavicle, though this area is suboptimally visualized due to overlying text on the image. This appearance could be projectional and related to positionin g, or could be related to chronic trauma. If there is point tenderness at this site, consider furthe r workup with clavicle radiographs to exclude acute pathology. Electronically signed by: Rodney Barcenas MD (04/03/2022 9:49 AM) [id number]
[2022-04-03 10:31] LABS: BACTERIA,URINE 0 /HPF (0-FEW); CLARITY,URINE CLEAR; COLOR,URINE YELLOW; GLUCOSE,URINE NEG (NEG); NITRITE,URINE NEG (NEG); SQUAMOUS EPITHELIAL CELL,UR FEW /LPF; UROBILINOGEN,URINE 0.2 mg/dL (0.2 mg/dL)
[2022-04-03 11:29] VITALS: BP 141/114
== END 2022-04-03 11:42 | disposition short-term general hospital (02) ==
LOC: ER 08:00
DX: S72.92XA Unspecified fracture of left femur, initial encounter for closed fracture (principal); E66.01 Morbid (severe) obesity due to excess calories; I12.9 Hypertensive chronic kidney disease with stage 1 through stage 4 chronic kidney disease, or unspecified chronic kidney disease; E11.22 Type 2 diabetes mellitus with diabetic chronic kidney disease; N18.9 Chronic kidney disease, unspecified; Z68.42 Body mass index [BMI] 45.0-49.9, adult; Z20.822 Contact with and (suspected) exposure to COVID-19; Z90.49 Acquired absence of other specified parts of digestive tract; W19.XXXA Unspecified fall, initial encounter; Y93.89 Activity, other specified; Y92.89 Other specified places as the place of occurrence of the external cause; Y99.8 Other external cause status
CPT/HCPCS: 36415; 70450; 71045; 73502; 73552; 80053; 81001; 85025; 85610; 85730; 87086; 87426; 93005; 96361; 96372; 96374; 99285; C9803; J2270; J2405; J7030; U0003